=== PATIENT | female | born 1940 | race Caucasian/White ===

== ENCOUNTER 2020-10-04 10:56 | Outpatient (REF) | payer MEDICARE, SELFPAY ==
--- NOTE | 2020-10-04 | MM_ITS ---
EXAMINATION: MM SCREENING DIGITAL BREAST TOMOSYNTHESIS, BILATERAL CLINICAL INFORMATION: Screening. Asymptomatic. The lifetime risk of breast cancer based on the Tyrer-Cuzick Model is 3.4%. COMPARISON: Mammography: September 29, 2019 and studies dating back to March 12, 2014 TECHNIQUE: Digital breast tomosynthesis is performed in both the craniocaudal and mediolateral oblique views along with computer-aided detection (CAD). Synthesized 2D images are generated from the tomosynthesis. FINDINGS: There are scattered areas of fibroglandular density (ACR BI-RADS breast composition Category b). There are no significant masses, abnormal calcifications, or other abnormalities. MM/MM tomosynthesis screening BI IMPRESSION: There are no significant changes from prior study. ASSESSMENT: BI-RADS 1: Negative RECOMMENDATION: Routine annual mammography screening. This patient's information was entered into a reminder system with a target due date for their next mammogram.
== END 2020-10-04 10:57 | disposition home or self-care (01) ==
LOC: HO.MAMMO 10:56
PROVIDERS: PCP Internal Medicine; Visit Provider Internal Medicine
DX: Z12.31 Encounter for screening mammogram for malignant neoplasm of breast (principal)
CPT/HCPCS: 77063; 77067

== ENCOUNTER 2021-02-26 06:14 | Day surgery (SDC) | payer MEDICARE, SELFPAY ==
[2021-02-21 12:01] VITALS: BMI 28.9
--- NOTE | 2021-02-21 12:09 | MHC.SHP ---
Pre-Procedural Eval Section A The patient is an INPATIENT: No The History & Physical has been completed within 30 days and I have reviewed it.: Yes Section B Chief Complaint: cataract Allergies: Allergies Allergy/AdvReac Type Severity Reaction Status Date / Time amoxicillin [AMOXICILLIN] Allergy Mild UNKNOWN-HAPPENED Verified 02/16/21 16:59 IN OR 2009 milk [MILK] Allergy Unknown DIARRHEA Verified 02/16/21 16:59 Plan Diagnosis/Plan: Unchanged I have reviewed the history and physical and performed a pertinent physical examination on my patient. No changes have occurred unless specified.
[2021-02-21 14:34] VITALS: BMI 29.5
--- NOTE | 2021-02-23 09:15 | P.CONAN_ITS ---
Documented by User: Felicity Kitty 02/23/21 09:16 HPI - Anesthesia Eval Consult details Narrative: 81yo F for Right Cataract Extraction IOL Insertion No prev cataract on record PCP cleared [facility] Active Problems Active Problems: All Active Problems (Updated 02/21/21 @ 14:33 by Aracelis Keller) Pure hypercholesterolemia (Acute) Benign essential hypertension (Acute) Cataracts, bilateral (Acute) Overweight (BMI 25.0-29.9) (Acute) Anxiety (Acute) Hypercholesterolemia (Acute) Hypertension (Acute) COPD (chronic obstructive pulmonary disease) (Acute) Past Medical History Medical History Acute meniscal tear of right knee Anemia Anxiety Aortic aneurysm Arthritis Benign essential hypertension Cataracts, bilateral COPD (chronic obstructive pulmonary disease) COVID-19 vaccine series completed Hypercholesterolemia Hypertension Low back pain Obstructive sleep apnea Overweight (BMI 25.0-29.9) Pure hypercholesterolemia Urge incontinence Valvular heart disease Family History Family History Father No problems noted. Mother Hypertension CVD (cardiovascular disease) Family/Other Diabetes CAD (coronary artery disease) Surgical History Surgical History History of ankle surgery History of arthroscopy of right knee History of bladder surgery History of cholecystectomy History of urologic surgery Hx of colonoscopy Status post resection of aortic aneurysm Social History Social History Alcohol intake: former Year quit: 1990 Smoking Status: Former smoker Smoking Quit Date: 1990 Use of substances other than those prescribed or required for medical reasons: No Advance Directives: No Advance Directives Information Provided: No Advance Directives on File: No Meds Allergies Allergy/AdvReac Type Severity Reaction Status Date / Time amoxicillin [AMOXICILLIN] Allergy Mild UNKNOWN-HAPPENED Verified 02/21/21 14:28 IN OR 2009 milk [MILK] Allergy Unknown DIARRHEA Verified 02/21/21 14:28 Home Medications Medication Instructions Recorded Confirmed Last Taken Type ascorbic acid (vitamin C) 500 mg mg PO 09/25/20 02/16/21 Unknown History capsule aspirin 81 mg tablet,delayed 81 mg PO DAILY 09/25/20 02/16/21 02/19/21 History release atorvastatin 20 mg tablet 20 mg PO DAILY 09/25/20 02/21/21 Unknown History biotin 5,000 mcg disintegrating See Rx Instructions PO DAILY 09/25/20 02/16/21 Unknown History tablet cholecalciferol (vitamin D3) 50 50 mcg PO DAILY 09/25/20 02/16/21 Unknown History mcg (2,000 unit) capsule cyanocobalamin (vitamin B-12) 50 100 mcg PO DAILY 09/25/20 02/16/21 Unknown History mcg lozenges docusate sodium 100 mg capsule 100 mg PO DAILY 09/25/20 02/16/21 Unknown History estradiol 1 g VAGINAL 2XW 09/25/20 02/16/21 Unknown History glucosamine 750 ea-zzxqvgacrcc-htv 1 tab PO DAILY tab 09/25/20 02/16/21 Unknown History no1 644 mg-C 30 mg-suzie 1 mg tablet omega-3 fatty acids 1,000 mg 1,000 mg PO DAILY 09/25/20 02/16/21 Unknown History capsule ondansetron 8 mg disintegrating 8 mg PO Q8H 09/25/20 02/16/21 Unknown History tablet polyethylene glycol 3350 17 17 g PO DAILY 09/25/20 02/16/21 Unknown History gram/dose oral powder trospium 20 mg tablet 20 mg PO BID tab 09/25/20 02/21/21 Unknown History Exam Exam Date and Time: February 23, 2021 0915 Height,Weight and Vital Signs: Height 5 ft 4 in Weight 78.018 kg Assessment and Plan Assessment Anesthesia Assessment: Chart Reviewed Documented by User: Flakita Minor 02/26/21 08:01 [facility] Past Medical History Medical History Acute meniscal tear of right knee Anemia Anxiety Aortic aneurysm Arthritis Benign essential hypertension Cataracts, bilateral COPD (chronic obstructive pulmonary disease) COVID-19 vaccine series completed Hypercholesterolemia Hypertension Low back pain Obstructive sleep apnea Overweight (BMI 25.0-29.9) Pure hypercholesterolemia Urge incontinence Valvular heart disease Family History Family History Father No problems noted. Mother Hypertension CVD (cardiovascular disease) Family/Other Diabetes CAD (coronary artery disease) Family history of problems with anesthesia: No Surgical History Surgical History History of ankle surgery History of arthroscopy of right knee History of bladder surgery History of cholecystectomy History of urologic surgery Hx of colonoscopy Status post resection of aortic aneurysm History of Problems with Anesthesia: No Social History Social History Alcohol intake: former Year quit: 1990 Smoking Status: Former smoker Smoking Quit Date: 1990 Use of substances other than those prescribed or required for medical reasons: No Advance Directives: No Advance Directives Information Provided: No Advance Directives on File: No Meds Allergies Allergy/AdvReac Type Severity Reaction Status Date / Time amoxicillin [AMOXICILLIN] Allergy Mild UNKNOWN-HAPPENED Verified 02/21/21 14:28 IN OR 2009 milk [MILK] Allergy Unknown DIARRHEA Verified 02/21/21 14:28 Home Medications Medication Instructions Recorded Confirmed Last Taken Type ascorbic acid (vitamin C) 500 mg mg PO 09/25/20 02/16/21 Unknown History capsule aspirin 81 mg tablet,delayed 81 mg PO DAILY 09/25/20 02/16/21 02/19/21 History release atorvastatin 20 mg tablet 20 mg PO DAILY 09/25/20 02/21/21 Unknown History biotin 5,000 mcg disintegrating See Rx Instructions PO DAILY 09/25/20 02/16/21 Unknown History tablet cholecalciferol (vitamin D3) 50 50 mcg PO DAILY 09/25/20 02/16/21 Unknown History mcg (2,000 unit) capsule cyanocobalamin (vitamin B-12) 50 100 mcg PO DAILY 09/25/20 02/16/21 Unknown History mcg lozenges docusate sodium 100 mg capsule 100 mg PO DAILY 09/25/20 02/16/21 Unknown History estradiol 1 g VAGINAL 2XW 09/25/20 02/16/21 Unknown History glucosamine 750 mq-lnfyqobahxv-rtf 1 tab PO DAILY tab 09/25/20 02/16/21 Unknown History no1 644 mg-C 30 mg-suzie 1 mg tablet omega-3 fatty acids 1,000 mg 1,000 mg PO DAILY 09/25/20 02/16/21 Unknown History capsule ondansetron 8 mg disintegrating 8 mg PO Q8H 09/25/20 02/16/21 Unknown History tablet polyethylene glycol 3350 17 17 g PO DAILY 09/25/20 02/16/21 Unknown History gram/dose oral powder trospium 20 mg tablet 20 mg PO BID tab 09/25/20 02/21/21 Unknown History Exam Height,Weight and Vital Signs: Vital Signs Temp Pulse Resp BP Pulse Ox 02/26/21 07:18 97.9 F 93 16 132/67 99 Airway Mallampati Class: II TM Dist: >3cm Neck ROM: Full Heart: RRR Lungs: CTAB Assessment and Plan Assessment Anesthesia Assessment: Anesthesia Plan Discussed and Chart Reviewed Final Anesthetic Review NPO: Yes ASA Class: III Final Preanesthetic Review: No Changes in Pt Med Stat, Meds/Allgs Chart Reviewed, Consent Obtained/Reviewed and Anes Risks/Benef Reviewed Patient Risk: Intermediate Procedure Risk: Low Assessment/Block/Sedation in SS: Assess/Block/Sedation-SS Anesthetic Plan Anesthetic Plan: MAC: Disposition: Standard PACU
[2021-02-26] MEDS: Tetracaine HCl/PF 0.5% Oph Sol 4 ML DROPS 1 DROP EYE-RIGHT (07:07)
[2021-02-26] MEDS: Tropicamide 1 % Ophth Sol 3 ML BTL 1 DROP EYE-RIGHT ×3 (07:08→07:19)
[2021-02-26] MEDS: Phenylephrine HCL 2.5% Oph SoL 2 ML BOTTLE 1 DROP EYE-RIGHT ×3 (07:11→07:22)
[2021-02-26 07:18] VITALS: BP 132/67; PULSE 93; RESP 16; TEMP 36.6; O2SAT 99
[2021-02-26] MEDS: Lactated Ringers 500 ML 50 ML IV (07:37)
--- NOTE | 2021-02-26 08:47 | P.PCNO_ITS ---
Ophthalmology Procedure Procedure Date of Service: 02/26/21 Ophthalmology Viscoelastic: Healon Duet Dual Pack Pro Ophthalmology Lenses: TECNIS ZXR00 (20.5) Procedure Notes: PREOPERATIVE DIAGNOSIS: Decreased visual acuity right eye secondary to cataract POSTOPERATIVE DIAGNOSIS: Same PROCEDURE: Right cataract extraction with multifocal intraocular lens insertion SURGEON: Armani Paul M.D. ANESTHESIA: Topical/MAC ESTIMATED BLOOD LOSS: None COMPLICATIONS: None After obtaining informed consent, the patient was brought to the operating room suite and placed in the supine position. After adequate sedation per anesthesia, topical drops of Tetracaine were given to the right eye. The eye was then prepped and draped in the usual sterile fashion. The operating room microscope was then positioned over the operative eye and a lid speculum placed. A paracentesis was created. Viscoelastic was then instilled into the anterior chamber. A three plane incision was then created temporally, utilizing a 2.85 mm keratome. Capsulotomy forceps were then utilized to create a circular tear capsulotomy. Hydrodissection and hydrodelineation were carried out until adequate mobilization of the nucleus occurred. Phacoemulsification was then utilized to remove the dense central nuc leus followed by removal of the cortical material utilizing the automated aspiration irrigation unit. Viscoelastic was instilled into the posterior capsular bag followed by placement of a multifocal posterior chamber intraocular lens without difficulty. The residual Viscoelastic was then removed utilizing the automated IA machine. The wound was checked and found to be watertight. The patient tolerated the procedure well and the lid speculum was removed. Intracameral injection of Vigamox 0.1 mL followed by a subtenon injection of Kenalog-40 0.2 mL were administered. The patient will be seen in the a.m.
[2021-02-26 08:48] VITALS: BP 153/82; PULSE 100; RESP 16; TEMP 36.1; O2SAT 98
[2021-02-26 08:56] VITALS: BP 155/60; PULSE 63; RESP 18; O2SAT 98
== END 2021-02-26 09:58 | disposition home or self-care (01) ==
PROVIDERS: PCP Internal Medicine; Visit Provider Ophthalmology
PROC: (CPT 66984; principal; 2021-02-26 08:20)
DX: H25.11 Age-related nuclear cataract, right eye (principal); H52.4 Presbyopia; Z83.511 Family history of glaucoma; I10 Essential (primary) hypertension; J44.9 Chronic obstructive pulmonary disease, unspecified; G47.33 Obstructive sleep apnea (adult) (pediatric); Z79.82 Long term (current) use of aspirin; Z79.899 Other long term (current) drug therapy; Z88.0 Allergy status to penicillin; Z87.891 Personal history of nicotine dependence
CPT/HCPCS: 66984; J2250; J3010; J3300; V2788

== ENCOUNTER 2021-03-12 06:48 | Day surgery (SDC) | payer MEDICARE, SELFPAY ==
[2021-02-21 14:36] VITALS: BMI 29.5
--- NOTE | 2021-03-07 12:19 | P.CONAN_ITS ---
Documented by User: Felicity Tang 03/07/21 12:20 HPI - Anesthesia Eval Consult details Narrative: 81yo F for Left Cataract Extraction IOL Insertion PCP Cleared Right eye 5/3 with TIVA: Fent 25, Midaz 1 PMFSH Active Problems Active Problems: All Active Problems (Updated 02/21/21 @ 14:33 by Aracelis Keller) Pure hypercholesterolemia (Acute) Benign essential hypertension (Acute) Cataracts, bilateral (Acute) Overweight (BMI 25.0-29.9) (Acute) Anxiety (Acute) Hypercholesterolemia (Acute) Hypertension (Acute) COPD (chronic obstructive pulmonary disease) (Acute) Past Medical History Medical History Acute meniscal tear of right knee Anemia Anxiety Aortic aneurysm Arthritis Benign essential hypertension Cataracts, bilateral COPD (chronic obstructive pulmonary disease) COVID-19 vaccine series completed Hypercholesterolemia Hypertension Low back pain Obstructive sleep apnea Overweight (BMI 25.0-29.9) Pure hypercholesterolemia Urge incontinence Valvular heart disease Family History Family History Father No problems noted. Mother Hypertension CVD (cardiovascular disease) Family/Other Diabetes CAD (coronary artery disease) Family history of problems with anesthesia: No Surgical History Surgical History History of ankle surgery History of arthroscopy of right knee History of bladder surgery History of cholecystectomy History of urologic surgery Hx of colonoscopy Status post resection of aortic aneurysm History of Problems with Anesthesia: No Social History Social History Alcohol intake: former Year quit: 1990 Smoking Status: Former smoker Smoking Quit Date: 1990 Use of substances other than those prescribed or required for medical reasons: No Are you DNR?: No Advance Directives: No Advance Directives Information Provided: No Advance Directives on File: No Meds Allergies Allergy/AdvReac Type Severity Reaction Status Date / Time amoxicillin [AMOXICILLIN] Allergy Mild UNKNOWN-HAPPENED Verified 02/21/21 14:28 IN OR 2009 milk [MILK] Allergy Unknown DIARRHEA Verified 02/21/21 14:28 Home Medications Medication Instructions Recorded Confirmed Last Taken Type ascorbic acid (vitamin C) 500 mg mg PO 09/25/20 02/16/21 Unknown History capsule aspirin 81 mg tablet,delayed 81 mg PO DAILY 09/25/20 02/16/21 03/11/21 History release atorvastatin 20 mg tablet 20 mg PO DAILY 09/25/20 02/21/21 Unknown History biotin 5,000 mcg disintegrating See Rx Instructions PO DAILY 09/25/20 02/16/21 Unknown History tablet cholecalciferol (vitamin D3) 50 50 mcg PO DAILY 09/25/20 02/16/21 Unknown History mcg (2,000 unit) capsule cyanocobalamin (vitamin B-12) 50 100 mcg PO DAILY 09/25/20 02/16/21 Unknown History mcg lozenges docusate sodium 100 mg capsule 100 mg PO DAILY 09/25/20 02/16/21 Unknown History estradiol 1 g VAGINAL 2XW 09/25/20 02/16/21 Unknown History glucosamine 750 qf-trnyvbygvwo-pyg 1 tab PO DAILY tab 09/25/20 02/16/21 Unknown History no1 644 mg-C 30 mg-suzie 1 mg tablet omega-3 fatty acids 1,000 mg 1,000 mg PO DAILY 09/25/20 02/16/21 Unknown History capsule ondansetron 8 mg disintegrating 8 mg PO Q8H 09/25/20 02/16/21 Unknown History tablet polyethylene glycol 3350 17 17 g PO DAILY 09/25/20 02/16/21 Unknown History gram/dose oral powder trospium 20 mg tablet 20 mg PO BID tab 09/25/20 02/21/21 Unknown History Exam Exam Date and Time: March 07, 2021 1219 Height,Weight and Vital Signs: Height 5 ft 4 in Weight 78.018 kg Assessment and Plan Assessment Anesthesia Assessment: Chart Reviewed Documented by User: Flakita Minor 03/12/21 08:07 [facility] Past Medical History Medical History Acute meniscal tear of right knee Anemia Anxiety Aortic aneurysm Arthritis Benign essential hypertension Cataracts, bilateral COPD (chronic obstructive pulmonary disease) COVID-19 vaccine series completed Hypercholesterolemia Hypertension Low back pain Obstructive sleep apnea Overweight (BMI 25.0-29.9) Pure hypercholesterolemia Urge incontinence Valvular heart disease Family History Family History Father No problems noted. Mother Hypertension CVD (cardiovascular disease) Family/Other Diabetes CAD (coronary artery disease) Surgical History Surgical History History of ankle surgery History of arthroscopy of right knee History of bladder surgery History of cholecystectomy History of urologic surgery Hx of colonoscopy Status post resection of aortic aneurysm Social History Social History Alcohol intake: former Year quit: 1990 Smoking Status: Former smoker Smoking Quit Date: 1990 Use of substances other than those prescribed or required for medical reasons: No Are you DNR?: No Advance Directives: No Advance Directives Information Provided: No Advance Directives on File: No Meds Allergies Allergy/AdvReac Type Severity Reaction Status Date / Time amoxicillin [AMOXICILLIN] Allergy Mild UNKNOWN-HAPPENED Verified 02/21/21 14:28 IN OR 2009 milk [MILK] Allergy Unknown DIARRHEA Verified 02/21/21 14:28 Home Medications Medication Instructions Recorded Confirmed Last Taken Type ascorbic acid (vitamin C) 500 mg mg PO 09/25/20 02/16/21 Unknown History capsule aspirin 81 mg tablet,delayed 81 mg PO DAILY 09/25/20 02/16/21 03/11/21 History release atorvastatin 20 mg tablet 20 mg PO DAILY 09/25/20 02/21/21 Unknown History biotin 5,000 mcg disintegrating See Rx Instructions PO DAILY 09/25/20 02/16/21 Unknown History tablet cholecalciferol (vitamin D3) 50 50 mcg PO DAILY 09/25/20 02/16/21 Unknown History mcg (2,000 unit) capsule cyanocobalamin (vitamin B-12) 50 100 mcg PO DAILY 09/25/20 02/16/21 Unknown History mcg lozenges docusate sodium 100 mg capsule 100 mg PO DAILY 09/25/20 02/16/21 Unknown History estradiol 1 g VAGINAL 2XW 09/25/20 02/16/21 Unknown History glucosamine 750 is-veuofzionhu-qhi 1 tab PO DAILY tab 09/25/20 02/16/21 Unknown History no1 644 mg-C 30 mg-suzie 1 mg tablet omega-3 fatty acids 1,000 mg 1,000 mg PO DAILY 09/25/20 02/16/21 Unknown History capsule ondansetron 8 mg disintegrating 8 mg PO Q8H 09/25/20 02/16/21 Unknown History tablet polyethylene glycol 3350 17 17 g PO DAILY 09/25/20 02/16/21 Unknown History gram/dose oral powder trospium 20 mg tablet 20 mg PO BID tab 09/25/20 02/21/21 Unknown History Exam Height,Weight and Vital Signs: Vital Signs Temp Pulse Resp BP Pulse Ox 03/12/21 07:47 97.2 F 95 16 154/80 H 97 Airway Mallampati Class: II TM Dist: >3cm Neck ROM: Full Heart: RRR Lungs: CTAB Assessment and Plan Assessment Anesthesia Assessment: Anesthesia Plan Discussed and Chart Reviewed Final Anesthetic Review NPO: Yes ASA Class: III Final Preanesthetic Review: No Changes in Pt Med Stat, Meds/Allgs Chart Reviewed, Consent Obtained/Reviewed and Anes Risks/Benef Reviewed Patient Risk: Intermediate Procedure Risk: Low Assessment/Block/Sedation in SS: Assess/Block/Sedation-SS Anesthetic Plan Anesthetic Plan: MAC: Disposition: Standard PACU
--- NOTE | 2021-03-07 14:33 | MHC.SHP ---
Pre-Procedural Eval Section A The patient is an INPATIENT: No The History & Physical has been completed within 30 days and I have reviewed it.: Yes Section B Chief Complaint: cataract Allergies: Allergies Allergy/AdvReac Type Severity Reaction Status Date / Time amoxicillin [AMOXICILLIN] Allergy Mild UNKNOWN-HAPPENED Verified 02/21/21 14:28 IN OR 2009 milk [MILK] Allergy Unknown DIARRHEA Verified 02/21/21 14:28 Plan Diagnosis/Plan: Unchanged I have reviewed the history and physical and performed a pertinent physical examination on my patient. No changes have occurred unless specified.
[2021-03-12] MEDS: Tetracaine HCl/PF 0.5% Oph Sol 4 ML DROPS 1 DROP EYE-LEFT (07:41)
[2021-03-12] MEDS: Tropicamide 1 % Ophth Sol 3 ML BTL 1 DROP EYE-LEFT ×3 (07:43→07:55)
[2021-03-12] MEDS: Lactated Ringers 500 ML 50 ML IV (07:46)
[2021-03-12 07:47] VITALS: BP 154/80; PULSE 95; RESP 16; TEMP 36.2; O2SAT 97
[2021-03-12] MEDS: Phenylephrine HCL 2.5% Oph SoL 2 ML BOTTLE 1 DROP EYE-LEFT ×3 (07:47→07:59)
--- NOTE | 2021-03-12 08:24 | P.PCNO_ITS ---
Ophthalmology Procedure Procedure Date of Service: 03/12/21 Ophthalmology Viscoelastic: Healon Duet Dual Pack Pro Ophthalmology Lenses: TECNIS ZXR00 (21) Procedure Notes: PREOPERATIVE DIAGNOSIS: Decreased visual acuity left eye s econdary to cataract POSTOPERATIVE DIAGNOSIS: Same PROCEDURE: Left cataract extraction with multifocal intraocular lens insertion SURGEON: Armani Paul M.D. ANESTHESIA: Topical/MAC ESTIMATED BLOOD LOSS: None COMPLICATIONS: None After obtaining informed consent, the patient was brought to the operation room suite and placed in the supine position. After adequate sedation per anesthesia, topical drops of Tetracaine were given to the left eye. The eye was then prepped and draped in the usual sterile fashion. The operating room microscope was then positioned over the operative eye and a lid speculum placed. A paracentesis was created. Viscoelastic was then instilled into the anterior chamber. A three plane incision was then created temporally, utilizing a 2.85 mm keratome. Capsulotomy forceps were then utilized to create a circular tear capsulotomy. Hydrodissection and hydrodelineation were carried out until adequate mobilization of the nucleus occurred. Phacoemulsification was then utilized to remove the dense central nucleus followed by removal of the cortical material utilizing the automated aspiration irrigation unit. Viscoelastic was instilled into the posterior capsular bag followed by placement of a multifocal posterior chamber intraocular lens without difficulty. The residual Viscoelastic was then removed utilizing the automated IA machine. The wound was check and found to be watertight. The patient tolerated the procedure well and the lid speculum was removed. Intracameral injection of Vigamox 0.1 mL followed by a subtenon injection of Kenalog-40 0.2 mL were administered. The patient will be seen in the a.m.
[2021-03-12 08:45] VITALS: BP 151/73; PULSE 89; RESP 18; TEMP 36.7; O2SAT 96
== END 2021-03-12 09:29 | disposition home or self-care (01) ==
PROVIDERS: PCP Internal Medicine; Visit Provider Ophthalmology
PROC: (CPT 66984; principal; 2021-03-12 08:40)
DX: H25.12 Age-related nuclear cataract, left eye (principal); H52.4 Presbyopia; Z83.511 Family history of glaucoma; I10 Essential (primary) hypertension; J44.9 Chronic obstructive pulmonary disease, unspecified; G47.33 Obstructive sleep apnea (adult) (pediatric); Z79.899 Other long term (current) drug therapy; Z87.891 Personal history of nicotine dependence
CPT/HCPCS: 66984; J2250; J3010; J3300; V2788

== ENCOUNTER 2021-05-14 11:51 | Outpatient (REF) | payer MEDICARE, SELFPAY ==
[2021-05-14 13:12] LABS: MANUAL DIFF FLAG NO
[2021-05-14 13:18] LABS: Basophils Absolute Auto 0.1 X10*3/uL (0.0-0.2); Basophils Percent Auto 0.6 % (0-2); Eosinophils Absolute Auto 0.3 X10*3/uL (0.0-0.4); Eosinophils Percent Auto 3.4 % (0-4); Hemoglobin 12.8 g/dl (12.0-16.0); Imm Gran Abs Auto 0.03 X10*3/uL (0.00-0.03); Imm Gran Pct Auto 0.4 % (0.0-0.4); Lymphocytes Percent Auto 25.1 % (20-40); Mean Corpuscular HGB Conc 33.7 g/dl (31.0-35.0); Mean Corpuscular Hemoglobin 31.9 pg (27.0-33.0); Mean Corpuscular Volume 94.8 fL (80-98); Mean Platelet Volume 10.6 fL (9.4-12.3); Monocytes Absolute Auto 0.7 X10*3/uL (0.1-1.2); Monocytes Percent Auto 8.4 % (2-11); Neutrophils Absolute Auto 4.9 X10*3/uL (2.0-8.3); Neutrophils Percent Auto 62.1 % (45-73); Platelet Count 182 X10*3/uL (160-400); Red Blood Count 4.01 X10*6/uL (4.20-5.50); Red Cell Distribution Width 12.5 % (11.0-16.0); White Blood Count 7.9 X10*3/uL (4.8-10.8)
[2021-05-14 14:11] LABS: Alanine Aminotransferase 12 U/L (0-31); Albumin Level 4.5 g/dL (3.5-5.0); Alkaline Phosphatase 57 U/L (39-117); Anion Gap 14 (12-20); Aspartate Amino Transferase 17 U/L (5-31); Bilirubin Total 0.6 mg/dL (0.0-1.0); Blood Urea Nitrogen 20 mg/dL (9-16); Calcium 9.6 mg/dL (8.4-10.2); Carbon Dioxide 26 mmol/L (22-29); Chloride 105 mmol/L (96-108); Cholesterol 161 mg/dL; Estimated Glomerular Filt Rate > 60; Glucose Random 92 mg/dL (60-115); HDL Cholesterol 44 mg/dL; LDL Cholesterol Calculated 97 mg/dl; Potassium 4.5 mmol/L (3.3-5.1); Sodium 140 mmol/L (135-145); Total Protein 7.2 g/dL (6.5-8.0); Triglycerides 101 mg/dL
[2021-05-14 14:12] LABS: Free T4 (Free Thyroxine) 1.05 ng/dL (0.71-1.85); Vitamin D 25-OH Total 69.6 ng/mL (>30)
[2021-05-14 14:16] LABS: Folate > 20.0 ng/mL (> or = 4.0); Vitamin B12 965 pg/mL (200-900)
[2021-05-14 14:30] LABS: Thyroid Stimulating Hormone 0.46 uIU/mL (0.32-4.0)
[2021-05-14 17:53] LABS: Glucose Urine UA NEG (NEG); Leukocyte Esterase Urine NEG (NEG); Nitrite Urine NEG (NEG); PH 5.5 (5.0-8.0); Urine Blood NEG (NEG); Urine Ketones NEG (NEG); Urine Protein NEG (NEG-TRACE)
[2021-05-14 17:57] LABS: Appearance Urine CLEAR; Color Urine STRAW
== END 2021-05-14 11:52 | disposition home or self-care (01) ==
LOC: HO.LAB 11:51
PROVIDERS: PCP Internal Medicine; Visit Provider Internal Medicine
DX: E78.00 Pure hypercholesterolemia, unspecified (principal); I10 Essential (primary) hypertension
CPT/HCPCS: 36415; 80053; 80061; 81003; 82306; 82607; 82746; 84439; 84443; 85025

== ENCOUNTER 2021-06-23 17:19 | Emergency (ER) | payer MEDICARE, SELFPAY ==
[2021-06-23 17:26] VITALS: BP 172/94; PULSE 117; RESP 17; TEMP 37.1; O2SAT 96; BMI 29.2
--- NOTE | 2021-06-23 17:47 | ED.GENADULT ---
HPI - General Adult General Chief complaint: General Medical Stated complaint: ?Shingles Source: patient Mode of arrival: ambulatory Limitations: no limitations History of Present Illness HPI narrative: 81-year-old female presents with 1 day of vesicular rash to the right side of her back, right axilla and right breast. States she has concerns for shingles. Onset (ago): day(s) (1) Location: chest, back and upper extremity Radiation: non-radiation Severity: severe Severity scale (1-10): 10 Quality: burning Pain Consistency: constant Relieving factors: none Exacerbating factors: movement Associated symptoms: denies other symptoms Treatments prior to arrival: none Related Data Home Medications Medication Instructions Recorded Confirmed ascorbic acid (vitamin C) 500 mg mg PO 09/25/20 06/05/21 capsule aspirin 81 mg tablet,delayed 81 mg PO DAILY 09/25/20 06/05/21 release (Adult Aspirin Regimen) biotin 5,000 mcg disintegrating See Rx Instructions PO DAILY 09/25/20 06/05/21 tablet cholecalciferol (vitamin D3) 50 50 mcg PO DAILY 09/25/20 06/05/21 mcg (2,000 unit) capsule cyanocobalamin (vitamin B-12) 50 100 mcg PO DAILY 09/25/20 06/05/21 mcg lozenges docusate sodium 100 mg capsule 100 mg PO DAILY 09/25/20 06/05/21 (Colace) estradiol 1 g VAGINAL 2XW 09/25/20 06/05/21 glucosamine 750 nx-jijtdpwdosh-dqi 1 tab PO DAILY tab 09/25/20 06/05/21 no1 644 mg-C 30 mg-suzie 1 mg tablet omega-3 fatty acids 1,000 mg 1,000 mg PO DAILY 09/25/20 06/05/21 capsule (Fish Oil Concentrate) ondansetron 8 mg disintegrating 8 mg PO Q8H 09/25/20 06/05/21 tablet polyethylene glycol 3350 17 17 g PO DAILY 09/25/20 06/05/21 gram/dose oral powder (Miralax) trospium 20 mg tablet 20 mg PO BID tab 09/25/20 06/05/21 Previous Rx's Medication Instructions Recorded meloxicam 15 mg tablet 15 mg PO DAILY #90 tab 09/18/20 lisinopril 5 mg tablet 5 mg PO DAILY #90 tab 11/24/20 atorvastatin 20 mg tablet 20 mg PO DAILY #90 tab 06/18/21 gabapentin 100 mg capsule 100 mg PO TID PRN 7 Days #21 cap 06/23/21 oxycodone 5 mg tablet 5 mg PO BEDTIME PRN #3 tab 06/23/21 prednisone 20 mg tablet 40 mg PO DAILY 6 Days #12 tab 06/23/21 valacyclovir 1 gram tablet 1,000 mg PO Q8H 7 Days #21 tab 06/23/21 Allergies Allergy/AdvReac Type Severity Reaction Status Date / Time amoxicillin [AMOXICILLIN] Allergy Mild UNKNOWN-HAPPENED Verified 06/05/21 12:00 IN OR 2009 milk [MILK] Allergy Unknown DIARRHEA Verified 06/05/21 12:00 Review of Systems Review of Systems: Constitutional: No Fever, No Chills ENT/Mouth: No Ear Pain, No Hoarseness, No sore throat Eyes: No Eye Pain, No Swelling, No Redness, No Foreign Body Cardiovascular: No Chest Pain, No SOB Respiratory: No Cough, No Dyspnea Gastrointestinal: No Nausea, No Vomiting, No Diarrhea, No abdominal Pain Genitourinary: No Dysuria, No Hematuria Musculoskeletal: No joint pain, No Myalgias, No Joint Swelling Skin: No Skin lacerations, positive rash Neuro: No Weakness, No Numbness, No Paresthesias, No Loss of Consciousness, No Dizziness, No Headache Psych: No Anxiety/Panic, No Depression Heme/Lymph: no easy bruising, no Lymphadenopathy Endocrine: No Polyuria, No Polydipsia Yes all other systems are reviewed and are negative PMFSH Past Medical History Attestation statement: The following information was validated with the patient. Source: old records reviewed Medical History Acute meniscal tear of right knee Anemia Anxiety Aortic aneurysm Arthritis Benign essential hypertension Cataracts, bilateral COPD (chronic obstructive pulmonary disease) COVID-19 vaccine series completed Low back pain Obstructive sleep apnea Overweight (BMI 25.0-29.9) Pure hypercholesterolemia Urge incontinence Valvular heart disease Surgical History History of ankle surgery History of arthroscopy of right knee History of bladder surgery History of cholecystectomy History of urologic surgery Hx of colonoscopy Status post resection of aortic aneurysm Family History Family History Father No problems noted. Mother Hypertension CVD (cardiovascular disease) Family/Other Diabetes CAD (coronary artery disease) Social History Social History Alcohol intake: never Patient Tobacco Use Status: Former Tobacco user Years Smoked: stopped 52 years old Use of substances other than those prescribed or required for medical reasons: No Advance Directives: No Advance Directives Information Provided: Yes Physical Exam Vital Signs: Vital Signs: Last Vital Signs Temp 98.8 F 06/23/21 17: Pulse 117 H 06/23/21 17:26 Resp 17 06/23/21 17: BP 172/94 H 06/23/21 17: Pulse Ox 96 06/23/21 17: Body Mass Index 29.2 Appearance: Alert. Oriented X3. No acute distress. Eyes: Pupils equal, round and reactive to light. ENT: Pharynx normal. Neck: Normal inspection. Neck supple. CVS: Normal heart rate and rhythm. Pulses normal. Respiratory: No respiratory distress. Breath sounds normal. Abdomen: Soft and nontender. Skin: Positive vescicular rash to the upper right side of her back, right axilla, and right side of her breast. On the same dermatome. Skin warm and dry. Normal skin color. Normal skin turgor. Extremities: No lower extremity edema. Neuro: No motor deficit. No sensory deficit. Course Course Course Narrative: 81-year-old female presents with vesicular rash that is painful, burning, and consistent with shingles. Will treat with valtrex, gabapentin, prednisone, and prescribed oxycodone for home use. Patient does verbalize understanding of and agrees to plan of care discharge home. Medical Decision Making Differential Diagnosis Differential Diagnosis: Shingles, contact dermatitis Medical Records Medical records reviewed: Yes I reviewed the patient's medical records. Discharge Plan Discharge Clinical Impression: Shingles Patient Disposition: Home, Self-Care Instructions: Shingles (ED) Additional Instructions: You were evaluated for rash to the right upper side of your body, consistent with shingles. Please take valacyclovir 1000 mg 3 times a day for the next 7 days. Use gabapentin 100 mg 3 times a day as needed for neurologic pain. Take prednisone 40 mg for the next 7 days. Please take Tylenol as needed for pain management. I did prescribe oxycodone, I gave the 3 tablets to help you sleep at night. Oxycodone is a narcotic and has high risk for addiction and abuse. Do not drive or operate machinery while taking this medication Thank you for choosing this emergency department for evaluation. Please follow-up with primary care physician as needed. Return to the emergency department for any new, concerning, or worsening symptoms. Prescriptions: New valacyclovir 1 gram tablet 1,000 mg PO Q8H 7 Days Qty: 21 RF: 0 prednisone 20 mg tablet 40 mg PO DAILY 6 Days Qty: 12 RF: 0 gabapentin 100 mg capsule 100 mg PO TID PRN (Reason: Neuralgia) 7 Days Qty: 21 RF: 0 oxycodone 5 mg tablet 5 mg PO BEDTIME PRN (Reason: pain) Qty: 3 RF: 0 No Action meloxicam 15 mg tablet 15 mg PO DAILY Qty: 90 RF: 1 lisinopril 5 mg tablet 5 mg PO DAILY Qty: 90 RF: 2 atorvastatin 20 mg tablet 20 mg PO DAILY Qty: 90 RF: 3 trospium 20 mg tablet 20 mg PO BID RF: 0 aspirin [Adult Aspirin Regimen] 81 mg tablet,delayed release (DR/EC) 81 mg PO DAILY RF: 0 cholecalciferol (vitamin D3) 50 mcg (2,000 unit) capsule 50 mcg PO DAILY RF: 0 docusate sodium [Colace] 100 mg capsule 100 mg PO DAILY RF: 0 jljnejzb-pxob-zqu4-C-suzie-bosw 750 mg-644 mg- 30 mg-1 mg tablet 1 tab PO DAILY RF: 0 cyanocobalamin (vitamin B-12) 50 mcg lozenge 100 mcg PO DAILY RF: 0 omega-3 fatty acids [Fish Oil Concentrate] 1,000 mg capsule 1,000 mg PO DAILY RF: 0 polyethylene glycol 3350 [Miralax] 17 gram/dose powder 17 g PO DAILY RF: 0 ondansetron 8 mg tablet,disintegrating 8 mg PO Q8H RF: 0 estradiol 0.01 % (0.1 mg/gram) cream 1 g vaginal 2XW RF: 0 biotin 5,000 mcg tablet,disintegrating See Rx Instructions PO DAILY RF: 0 ascorbic acid (vitamin C) 500 mg capsule PO RF: 0 Interventions: ED Discharge Assessment Last Done: 06/23/21 18:37 Discharge Date/Time: 06/23/21 18:50
[2021-06-23] MEDS: predniSONE 20 MG TABLET 40 MG PO (18:45)
[2021-06-23] MEDS: Gabapentin 100 MG CAPSULE PO (18:45)
--- NOTE | 2021-06-23 18:49 | PC.NURSE ---
patient medicated per order
== END 2021-06-23 18:50 | disposition home or self-care (01) ==
PROVIDERS: Emergency Provider Emergency Medicine Emergency Medical Services; PCP Internal Medicine
DX: B02.9 Zoster without complications (principal); I10 Essential (primary) hypertension; E78.00 Pure hypercholesterolemia, unspecified; Z79.02 Long term (current) use of antithrombotics/antiplatelets; Z79.82 Long term (current) use of aspirin; Z79.899 Other long term (current) drug therapy
CPT/HCPCS: 99283

== ENCOUNTER 2021-07-01 13:49 | Emergency (ER) | payer MEDICARE, SELFPAY ==
--- NOTE | 2021-07-01 | ECG_ITS ---
Test Reason : PALPITATIONS Blood Pressure : / mmHG Vent. Rate : 120 BPM Atrial Rate : 120 BPM P-R Int : 196 ms QRS Dur : 078 ms QT Int : 278 ms P-R-T Axes : 000 034 091 degrees QTc Int : 392 ms Sinus tachycardia Nonspecific T wave abnormality Abnormal ECG When compared with ECG of 18-MAY-2020 13:51, Nonspecific T wave abnormality is now Present Referred By: Generic ED Physician Electronically Signed By:JOSSUE CASTILLO
[2021-07-01 14:06] VITALS: BP 175/84; PULSE 130; RESP 20; TEMP 36.6; O2SAT 99; BMI 29.2
[2021-07-01 14:43] LABS: MANUAL DIFF FLAG NO
[2021-07-01 14:47] LABS: Basophils Percent Auto 0.4 % (0-2); Eosinophils Absolute Auto 0.3 X10*3/uL (0.0-0.4); Eosinophils Percent Auto 2.3 % (0-4); Hematocrit 39.7 % (37-47); Hemoglobin 13.8 g/dl (12.0-16.0); Imm Gran Abs Auto 0.09 X10*3/uL (0.00-0.03); Imm Gran Pct Auto 0.8 % (0.0-0.4); Lymphocytes Absolute Auto 4.8 X10*3/uL (1.2-4.9); Lymphocytes Percent Auto 44.3 % (20-40); Mean Corpuscular HGB Conc 34.8 g/dl (31.0-35.0); Mean Corpuscular Hemoglobin 32.8 pg (27.0-33.0); Mean Corpuscular Volume 94.3 fL (80-98); Mean Platelet Volume 9.2 fL (9.4-12.3); Monocytes Absolute Auto 0.9 X10*3/uL (0.1-1.2); Monocytes Percent Auto 8.2 % (2-11); Neutrophils Absolute Auto 4.8 X10*3/uL (2.0-8.3); Platelet Count 216 X10*3/uL (160-400); Red Blood Count 4.21 X10*6/uL (4.20-5.50); White Blood Count 10.8 X10*3/uL (4.8-10.8)
[2021-07-01 14:48] VITALS: PULSE 85
[2021-07-01 15:05] LABS: Troponin-I High Sensitivity < 3.5 ng/L (<3.5-17.0)
--- NOTE | 2021-07-01 15:36 | ED.GENADULT ---
HPI - General Adult General Chief complaint: General Medical Stated complaint: SHINGLES Time Seen by Provider: 07/01/21 14:36 Source: patient and family (, Trevor) Mode of arrival: ambulatory Limitations: no limitations History of Present Illness HPI narrative: 81-year-old female who presents emergency department for evaluation of right-sided chest pain secondary to shingles, diarrhea and nausea. The patient was diagnosed with shingles approximately 1 week prior. She was started on gabapentin, prednisone, valacyclovir and oxycodone. She states that she has completed these medications and she is still having severe pain in her right chest. The pain is located in her right anterior and posterior chest and underneath her right axilla, the pain is a constant, burning sensation which is 8/10. Patient states she had associated nausea and had 2-3 episodes of loose diarrheal stool. Patient was concerned that her pain was not getting better and that she now had diarrhea therefore she came to the emergency department for evaluation. She denied fever, chills, shortness of breath or dyspnea on exertion. Related Data Home Medications Medication Instructions Recorded Confirmed ascorbic acid (vitamin C) 500 mg mg PO 09/25/20 06/05/21 capsule aspirin 81 mg tablet,delayed 81 mg PO DAILY 09/25/20 06/05/21 release (Adult Aspirin Regimen) biotin 5,000 mcg disintegrating See Rx Instructions PO DAILY 09/25/20 06/05/21 tablet cholecalciferol (vitamin D3) 50 50 mcg PO DAILY 09/25/20 06/05/21 mcg (2,000 unit) capsule cyanocobalamin (vitamin B-12) 50 100 mcg PO DAILY 09/25/20 06/05/21 mcg lozenges docusate sodium 100 mg capsule 100 mg PO DAILY 09/25/20 06/05/21 (Colace) estradiol 1 g VAGINAL 2XW 09/25/20 06/05/21 glucosamine 750 lv-qaypptiyjsw-iwd 1 tab PO DAILY tab 09/25/20 06/05/21 no1 644 mg-C 30 mg-suzie 1 mg tablet omega-3 fatty acids 1,000 mg 1,000 mg PO DAILY 09/25/20 06/05/21 capsule (Fish Oil Concentrate) ondansetron 8 mg disintegrating 8 mg PO Q8H 09/25/20 06/05/21 tablet polyethylene glycol 3350 17 17 g PO DAILY 09/25/20 06/05/21 gram/dose oral powder (Miralax) trospium 20 mg tablet 20 mg PO BID tab 09/25/20 06/05/21 Previous Rx's Medication Instructions Recorded lisinopril 5 mg tablet 5 mg PO DAILY #90 tab 11/24/20 atorvastatin 20 mg tablet 20 mg PO DAILY #90 tab 06/18/21 gabapentin 100 mg capsule 100 mg PO TID PRN 7 Days #21 cap 06/23/21 oxycodone 5 mg tablet 5 mg PO BEDTIME PRN #3 tab 06/23/21 prednisone 20 mg tablet 40 mg PO DAILY 6 Days #12 tab 06/23/21 valacyclovir 1 gram tablet 1,000 mg PO Q8H 7 Days #21 tab 06/23/21 meloxicam 15 mg tablet 15 mg PO DAILY #90 tab 06/26/21 gabapentin 100 mg capsule 100 mg PO TID 30 Days #90 cap 07/01/21 oxycodone 5 mg capsule 5 mg PO Q4H PRN #14 cap 07/01/21 Allergies Allergy/AdvReac Type Severity Reaction Status Date / Time amoxicillin [AMOXICILLIN] Allergy Mild UNKNOWN-HAPPENED Verified 06/05/21 12:00 IN OR 2009 milk [MILK] Allergy Unknown DIARRHEA Verified 06/05/21 12:00 Review of Systems Review of Systems: Yes all other systems are reviewed and are negative [facility] Past Medical History Medical History Acute meniscal tear of right knee Anemia Anxiety Aortic aneurysm Arthritis Benign essential hypertension Cataracts, bilateral COPD (chronic obstructive pulmonary disease) COVID-19 vaccine series completed Low back pain Obstructive sleep apnea Overweight (BMI 25.0-29.9) Pure hypercholesterolemia Urge incontinence Valvular heart disease Surgical History History of ankle surgery History of arthroscopy of right knee History of bladder surgery History of cholecystectomy History of urologic surgery Hx of colonoscopy Status post resection of aortic aneurysm Family History Family History Father No problems noted. Mother Hypertension CVD (cardiovascular disease) Family/Other Diabetes CAD (coronary artery disease) Social History Social History Alcohol intake: never Patient Tobacco Use Status: Former Tobacco user Years Smoked: stopped 52 years old Use of substances other than those prescribed or required for medical reasons: No Advance Directives: Yes Advance Directives Information Provided: Yes Advance Directives on File: No Physical Exam Vital Signs: Vital Signs: Last Vital Signs Temp 97.9 F 07/01/21 14:06 Pulse 85 07/01/21 14:48 Resp 20 07/01/21 14:06 BP 175/84 H 07/01/21 14:06 Pulse Ox 99 07/01/21 14:06 Body Mass Index 29.2 Const: General: cooperative and no acute distress Orientation/consciousness: oriented to person and oriented to place Limitations: no limitations HENMT: Head: Yes normal to inspection, Yes normocephalic and Yes atraumatic Ears: external ears normal General nose exam: Normal external nose present Face and sinus: Yes normal facial exam Mouth: Normal oral and palatal mucosa present Throat: Yes posterior oropharynx normal Eyes: General: appearance normal, both eyes and all related structures Pupils: Equal, round and reactive pupils present Neck: Neck: Yes normal visual inspection, Yes no lymphadenopathy, Yes trachea midline and Yes supple Chest: Chest palpation & inspection: normal inspection of the chest and normal palpation of entire chest wall Resp: Effort & Inspection: normal respiratory effort and able to speak in complete sentences Auscultation: clear to auscultation bilaterally Cardio: Rate: regular rate Rhythm: regular rhythm Heart sounds: S1 normal heart sound present, S2 normal heart sound present and no murmurs GI: Inspection: Yes normal to inspection Palpation (GI): Soft to palpation, nontender and no guarding Auscultation: normal bowel sounds : General: Yes no CVA tenderness Back/Spine/Pelvis: Back: no CVA tenderness Skin: Other: The patient had scarred over vesicular lesions an her right posterior chest, right axilla and right anterior chest, there is no increased warmth or erythema, there is no discharge, there is no sign of a bacterial infection General skin exam: no rashes or lesions noted Neuro: General: oriented to person and oriented to place Cranial nerves: Yes CN's II-XII intact bilaterally and Yes Equal, round and reactive pupils present Cognition (Neuro): normal cognition Motor exam (neuro): 5/5 motor strength present throughout Extrem: General: Yes normal to inspection Psych: Appearance: grossly normal Speech and movement: Normal speech and movement present Affect: normal affect Attitude: cooperative Thought process: Normal thought process present Thought content: Normal thought content present Course Course Course Narrative: 81-year-old female who was diagnosed with shingles 1 week prior who has completed a course of valacyclovir, gabapentin and oxycodone and presents with increased pain, nausea and diarrhea. Physical examination is consistent with herpes zoster rash and her pain is consistent with herpetic neuralgia. The patient's 12 EKG was unremarkable. CBC was normal and her troponin was below detectable limits. I prescribed another course of gabapentin 100 mg 3 times a day for 1 month. She was advised to take extra-strength Tylenol 500 mg, 2 pills every 4 hours as needed for pain and for pain not relieved by Tylenol, she prescribed oxycodone 5 mg pills, 1 pill every 4 hours as needed for pain. The patient was discharged home. The patient was given verbal and printed instructions prior to discharge. The patient was advised to follow-up with her PCP in 2 days and to return to the emergency department if her symptoms get worse or if she develops any new symptoms that are concerning to her. Medical Decision Making Lab Data Result diagrams: 07/01/21 14:38 07/01/21 14:38 Labs: Lab Results 07/01/21 07/01/21 Range/Units 14:38 14:38 WBC 10.8 (4.8-10.8) X10*3/uL RBC 4.21 (4.20-5.50) X10*6/uL Hgb 13.8 (12.0-16.0) g/dl Hct 39.7 (37-47) % MCV 94.3 (80-98) fL MCH 32.8 (27.0-33.0) pg MCHC 34.8 (31.0-35.0) g/dl RDW 13.0 (11.0-16.0) % Plt Count 216 (160-400) X10*3/uL MPV 9.2 L (9.4-12.3) fL Immature Gran % (Auto) 0.8 H (0.0-0.4) % Neut % (Auto) 44.0 L (45-73) % Lymph % (Auto) 44.3 H (20-40) % Davison % (Auto) 8.2 (2-11) % Eos % (Auto) 2.3 (0-4) % Baso % (Auto) 0.4 (0-2) % Lymph # (Auto) 4.8 (1.2-4.9) X10*3/uL Davison # (Auto) 0.9 (0.1-1.2) X10*3/uL Eos # (Auto) 0.3 (0.0-0.4) X10*3/uL Baso # (Auto) 0.0 (0.0-0.2) X10*3/uL Abs Immat Gran (auto) 0.09 H (0.00-0.03) X10*3/uL Absolute Neuts (auto) 4.8 (2.0-8.3) X10*3/uL Absolute Nucleated RBC 0.000 (0.0-0.012) X10*3/uL Nucleated RBC % (auto) 0.0 (0.0-0.2) /100WBC Troponin I High Sens < 3.5 (<3.5-17.0) ng/L Discharge Plan Discharge Clinical Impression: Nausea Chest pain Qualifiers: Chest pain type: other chest pain Qualified Code(s): R07.89 - Other chest pain Shingles Qualifiers: Herpes zoster complications: unspecified herpes zoster complication Qualified Code(s): B02.8 - Zoster with other complications Diarrhea Qualifiers: Diarrhea type: unspecified type Qualified Code(s): R19.7 - Diarrhea, unspecified Patient Disposition: Home, Self-Care Instructions: Shingles (ED) Additional Instructions: Your 12 EKG was unremarkable. Your troponin (a marker of heart damage) was below detectable limits which is reassuring. Your complete blood count was normal. Your comprehensive metabolic panel was pending but I do not anticipate and significant abnormalities. Your pain is consistent with your shingles (herpes zoster) infection. The nerve pain caused by shingles can be severe and can sometimes last weeks to months. I am represcribed being the gabapentin 100 mg 3 times a day for nerve pain. I am also giving you another prescription for oxycodone 5 mg pills, 1 pill every 4-6 hours as needed for pain. This medication can be addicting, if your concerned about addiction do not get this medicine filled or ask the pharmacist for less pills. This medication will make you sleepy in constipated and can sometimes make you confused. Follow-up with your doctor in 2 days. Please return to the emergency department if your symptoms get worse or if you develop any symptoms that are concerning to you. Prescriptions: New gabapentin 100 mg capsule 100 mg PO TID 30 Days Qty: 90 RF: 0 oxycodone 5 mg capsule 5 mg PO Q4H PRN (Reason: pain) Qty: 14 RF: 0 No Action lisinopril 5 mg tablet 5 mg PO DAILY Qty: 90 RF: 2 atorvastatin 20 mg tablet 20 mg PO DAILY Qty: 90 RF: 3 meloxicam 15 mg tablet 15 mg PO DAILY Qty: 90 RF: 2 valacyclovir 1 gram tablet 1,000 mg PO Q8H 7 Days Qty: 21 RF: 0 prednisone 20 mg tablet 40 mg PO DAILY 6 Days Qty: 12 RF: 0 gabapentin 100 mg capsule 100 mg PO TID PRN (Reason: Neuralgia) 7 Days Qty: 21 RF: 0 oxycodone 5 mg tablet 5 mg PO BEDTIME PRN (Reason: pain) Qty: 3 RF: 0 trospium 20 mg tablet 20 mg PO BID RF: 0 aspirin [Adult Aspirin Regimen] 81 mg tablet,delayed release (DR/EC) 81 mg PO DAILY RF: 0 cholecalciferol (vitamin D3) 50 mcg (2,000 unit) capsule 50 mcg PO DAILY RF: 0 docusate sodium [Colace] 100 mg capsule 100 mg PO DAILY RF: 0 mxhvhgsp-qxne-zfo1-C-suzie-bosw 750 mg-644 mg- 30 mg-1 mg tablet 1 tab PO DAILY RF: 0 cyanocobalamin (vitamin B-12) 50 mcg lozenge 100 mcg PO DAILY RF: 0 omega-3 fatty acids [Fish Oil Concentrate] 1,000 mg capsule 1,000 mg PO DAILY RF: 0 polyethylene glycol 3350 [Miralax] 17 gram/dose powder 17 g PO DAILY RF: 0 ondansetron 8 mg tablet,disintegrating 8 mg PO Q8H RF: 0 estradiol 0.01 % (0.1 mg/gram) cream 1 g vaginal 2XW RF: 0 biotin 5,000 mcg tablet,disintegrating See Rx Instructions PO DAILY RF: 0 ascorbic acid (vitamin C) 500 mg capsule PO RF: 0 Interventions: ED Discharge Assessment Last Done: 07/01/21 16:35 Discharge Date/Time: 07/01/21 16:35
== END 2021-07-01 16:35 | disposition home or self-care (01) ==
PROVIDERS: Emergency Provider Emergency Medicine Emergency Medical Services; PCP Internal Medicine
DX: B02.9 Zoster without complications (principal); R07.89 Other chest pain; R19.7 Diarrhea, unspecified; R11.2 Nausea with vomiting, unspecified; Z87.891 Personal history of nicotine dependence; Z79.899 Other long term (current) drug therapy
CPT/HCPCS: 36415; 84484; 85025; 93005; 99284

== ENCOUNTER 2021-07-17 15:52 | Outpatient (REF) | payer MEDICARE, SELFPAY | END 2021-07-17 15:53 | disposition home or self-care (01) | LOC: HO.LAB 15:52 | PROVIDERS: PCP Internal Medicine; Visit Provider Internal Medicine | DX: Z13.89 Encounter for screening for other disorder (principal) ==

== ENCOUNTER 2021-07-18 11:50 | Outpatient (REF) | payer MEDICARE, SELFPAY ==
[2021-07-18 12:08] LABS: Appearance Urine CLEAR; Color Urine YELLOW; Glucose Urine UA NEG (NEG); Leukocyte Esterase Urine 1+ (NEG); Nitrite Urine POS (NEG); UACC Culture Trigger YES; Urine Blood NEG (NEG); Urine Ketones NEG (NEG); Urine Protein NEG (NEG-TRACE)
[2021-07-18 13:14] LABS: Squamous Epithelial Cell Urine TRACE /LPF
[2021-07-18 13:16] LABS: Bacteria Urine 3+ /LPF; RBC Urine 0 /HPF (0)
== END 2021-07-18 11:51 | disposition home or self-care (01) ==
LOC: HO.LNP 11:50
PROVIDERS: Visit Provider Internal Medicine
DX: R30.0 Dysuria (principal)
CPT/HCPCS: 81001; 81003; 87086; 87088; 87186

== ENCOUNTER 2021-08-13 14:42 | Outpatient (REF) | payer MEDICARE, SELFPAY ==
--- NOTE | ~2021-08-13 | US_ITS ---
EXAMINATION: US VENOUS ULTRASOUND WITH DOPPLER LOWER EXTREMITY, LEFT CLINICAL INFORMATION: Left lower extremity edema. COMPARISON: None TECHNIQUE: Ultrasound of the deep veins is performed from the hip to the calf with compression sonography and color and pulse Doppler assessment. Spectral analysis with color-flow imaging is performed. FINDINGS: There is no evidence for deep venous thrombosis in the left common femoral, profunda femoral, femoral, popliteal and posterior tibial veins. The distal peroneal and posterior tibial veins were difficult to interrogate secondary to overlying subcutaneous edema. No left popliteal cyst. If the patient's symptoms persist, followup ultrasound in 5 days 7 days might be of value to exclude proximal propagation from a non-visualized calf vein. US/US venous duplex LE LT IMPRESSION: 1. No evidence for deep venous thrombosis in the visualized veins of the left lower extremity. 2. Mild subcutaneous edema in the left calf. No focal abnormality.
== END 2021-08-13 14:43 | disposition home or self-care (01) ==
LOC: HO.US 14:42
PROVIDERS: PCP Internal Medicine; Visit Provider Internal Medicine
DX: M79.89 Other specified soft tissue disorders (principal)
CPT/HCPCS: 93971

== ENCOUNTER 2021-09-11 10:11 | Outpatient (REF) | payer MEDICARE, SELFPAY ==
[2021-09-11 10:34] LABS: MANUAL DIFF FLAG NO
[2021-09-11 11:00] LABS: Basophils Percent Auto 0.7 % (0-2); Eosinophils Absolute Auto 0.1 X10*3/uL (0.0-0.4); Eosinophils Percent Auto 1.2 % (0-4); Hematocrit 33.3 % (37.0-47.0); Hemoglobin 11.5 g/dl (12.0-16.0); Imm Gran Abs Auto 0.01 X10*3/uL (0.00-0.03); Imm Gran Pct Auto 0.2 % (0.0-0.4); Lymphocytes Absolute Auto 1.5 X10*3/uL (1.2-4.9); Lymphocytes Percent Auto 25.5 % (20-40); Mean Corpuscular HGB Conc 34.5 g/dl (31.0-35.0); Mean Corpuscular Hemoglobin 33.5 pg (27.0-33.0); Mean Corpuscular Volume 97.1 fL (80.0-98.0); Mean Platelet Volume 9.5 fL (9.4-12.3); Monocytes Absolute Auto 0.6 X10*3/uL (0.1-1.2); Monocytes Percent Auto 9.8 % (2-11); Neutrophils Absolute Auto 3.7 x10*3/uL (2.0-8.3); Neutrophils Percent Auto 62.6 % (45-73); Platelet Count 213 X10*3/uL (160-400); Red Blood Count 3.43 X10*6/uL (4.20-5.50); Red Cell Distribution Width 13.8 % (11.0-16.0); White Blood Count 5.9 X10*3/uL (4.8-10.8)
[2021-09-11 11:32] LABS: B Type Natriuretic Peptide 140 pg/mL (<100)
[2021-09-11 11:42] LABS: Alanine Aminotransferase 15 U/L (0-31); Albumin Level 4.6 g/dL (3.5-5.0); Alkaline Phosphatase 40 U/L (39-117); Anion Gap 13 (12-20); Aspartate Amino Transferase 19 U/L (5-31); Bilirubin Total 0.6 mg/dL (0.0-1.0); Blood Urea Nitrogen 23 mg/dL (9-16); Calcium 9.8 mg/dL (8.4-10.2); Carbon Dioxide 24 mmol/L (22-29); Chloride 105 mmol/L (96-108); Estimated Glomerular Filt Rate 59; Glucose Random 102 mg/dL (60-115); Potassium 5.4 mmol/L (3.3-5.1); Sodium 137 mmol/L (135-145); Total Protein 7.3 g/dL (6.5-8.0)
[2021-09-11 12:03] LABS: Free T4 (Free Thyroxine) 0.93 ng/dL (0.71-1.85); Thyroid Stimulating Hormone 0.44 uIU/mL (0.32-4.0)
== END 2021-09-11 10:12 | disposition home or self-care (01) ==
LOC: HO.LAB 10:11
PROVIDERS: PCP Internal Medicine; Visit Provider Internal Medicine
DX: M79.89 Other specified soft tissue disorders (principal)
CPT/HCPCS: 36415; 80053; 83880; 84439; 84443; 85025

== ENCOUNTER 2021-09-24 09:27 | Outpatient (REF) | payer MEDICARE, SELFPAY ==
[2021-09-24 10:32] LABS: Anion Gap 12 (12-20); Blood Urea Nitrogen 28 mg/dL (9-16); Calcium 9.8 mg/dL (8.4-10.2); Carbon Dioxide 26 mmol/L (22-29); Chloride 103 mmol/L (96-108); Estimated Glomerular Filt Rate 49; Glucose Random 98 mg/dL (60-115); Potassium 5.6 mmol/L (3.3-5.1); Sodium 135 mmol/L (135-145)
== END 2021-09-24 09:28 | disposition home or self-care (01) ==
LOC: HO.LAB 09:27
PROVIDERS: PCP Internal Medicine; Visit Provider Internal Medicine
DX: E87.5 Hyperkalemia (principal)
CPT/HCPCS: 36415; 80048

== ENCOUNTER 2021-11-09 15:04 | Outpatient (REF) | payer MEDICARE, SELFPAY ==
[2021-11-09 16:16] LABS: Anion Gap 12 (12-20); Blood Urea Nitrogen 22 mg/dL (9-16); Calcium 9.9 mg/dL (8.4-10.2); Carbon Dioxide 26 mmol/L (22-29); Chloride 106 mmol/L (96-108); Estimated Glomerular Filt Rate > 60; Glucose Random 119 mg/dL (60-115); Potassium 4.1 mmol/L (3.3-5.1); Sodium 140 mmol/L (135-145)
== END 2021-11-09 15:05 | disposition home or self-care (01) ==
LOC: HO.LAB 15:04
PROVIDERS: PCP Internal Medicine; Visit Provider Internal Medicine
DX: E87.5 Hyperkalemia (principal)
CPT/HCPCS: 36415; 80048

== ENCOUNTER → 2021-11-26 09:23 | Outpatient (BNVA) | payer MEDICARE, SELFPAY | PROVIDERS: PCP Internal Medicine; Visit Provider Internal Medicine | DX: B02.29 Other postherpetic nervous system involvement (principal) | CPT/HCPCS: 99202 ==

== ENCOUNTER → 2021-11-29 11:06 | Outpatient (BNVA) | payer MEDICARE, SELFPAY | PROVIDERS: PCP Internal Medicine; Visit Provider Surgery Vascular Surgery | DX: I83.12 Varicose veins of left lower extremity with inflammation (principal) | CPT/HCPCS: 99202 ==

== ENCOUNTER 2021-12-04 10:31 | Outpatient (REF) | payer MEDICARE, SELFPAY ==
--- NOTE | ~2021-12-04 | US_ITS ---
EXAMINATION: BILATERAL LOWER EXTREMITY VENOUS ULTRASOUND (Reflux Exam) CLINICAL INDICATION: Varicose veins of left lower extremity. COMPARISON: Left lower extremity venous Doppler ultrasound on 08/13/2021. TECHNIQUE: Color flow triplex imaging and compression Doppler was performed to evaluate both the deep and the superficial systems bilaterally. To evaluate the superficial system, the examination was performed in the upright position. Color-flow Doppler ultrasound and compression ultrasound were utilized. In addition, maneuvers were utilized to demonstrate reflux. FINDINGS: SUPERFICIAL ULTRASOUND WITH DOPPLER OF RIGHT LOWER EXTREMITY GREAT SAPHENOUS VEIN: Saphenofemoral junction: 0.5 cm Max diameter: 0.5 cm Min diameter: 0.2 cm Reflux: No evidence of reflux. DUPLICATED MEDIAL GREAT SAPHENOUS VEIN: Max Diameter: None Imaged Reflux: NA DUPLICATED LATERAL GREAT SAPHENOUS VEIN: Diameter: 0.3 cm at the junction Reflux: None SMALL SAPHENOUS VEIN: Proximal Calf: 0.2 cm Distal Calf: 0.2 cm Reflux: No evidence of reflux. VEIN OF GIACOMINI: None Imaged. PERFORATORS: Location: None Imaged Reflux: NA VARICOSITIES: Location: None Imaged Reflux: NA DEEP VENOUS ULTRASOUND OF THE RIGHT LOWER EXTREMITY: Common Femoral Vein: Compressible, normal respiratory variation and augmented flow. Femoral vein: Compressible, normal color flow and augmentation. Popliteal Vein: Compressible, normal augmentation. Deep Reflux: There is no evidence of reflux in the deep system in either the common femoral vein or the popliteal vein. Cardona's Cyst: There is no evidence of a Cardona's cyst. SUPERFICIAL ULTRASOUND WITH DOPPLER OF LEFT LOWER EXTREMITY GREAT SAPHENOUS VEIN: Saphenofemoral junction: 0.6 cm Max diameter: 0.6 cm Min diameter: 0.2 cm Reflux: No evidence of reflux. DUPLICATED MEDIAL GREAT SAPHENOUS VEIN: Max Diameter: 0.3 cm at the junction Reflux: None DUPLICATED LATERAL GREAT SAPHENOUS VEIN: Diameter: None Imaged Reflux: NA SMALL SAPHENOUS VEIN: Proximal Calf: 0.2 cm Distal Calf: 0.2 cm Reflux: There is greater than 2.8 seconds of reflux at the distal calf VEIN OF GIACOMINI: None Imaged. PERFORATORS: Location: Proximal calf, 0.2 cm Reflux: None VARICOSITIES: Location: Proximal calf, 1 mm Reflux: Greater than 2.4 seconds of reflux DEEP VENOUS ULTRASOUND OF THE LEFT LOWER EXTREMITY: Common Femoral Vein: Compressible, normal respiratory variation and augmented flow. Femoral vein: Compressible, normal color flow and augmentation. Popliteal Vein: Compressible, normal augmentation. Deep Reflux: There is no evidence of reflux in the deep system in either the common femoral vein or the popliteal vein. Cardona's Cyst: There is no evidence of a Cardona's cyst. US/US venous duplex LE BI IMPRESSION: 1. No evidence of great saphenous venous insufficiency involving either lower extremity. 2. There is segmental reflux involving the left small saphenous vein within the distal calf. 3. There is a small refluxing varicosity within the left proximal calf. 4. No right-sided varicosities identified. 5. No evidence of DVT or deep venous insufficiency.
== END 2021-12-04 10:32 | disposition home or self-care (01) ==
LOC: HO.US 10:31
PROVIDERS: Visit Provider Surgery Vascular Surgery
DX: I83.12 Varicose veins of left lower extremity with inflammation (principal)
CPT/HCPCS: 93970

== ENCOUNTER → 2021-12-11 11:15 | Outpatient (BNVA) | payer MEDICARE, SELFPAY | PROVIDERS: PCP Internal Medicine; Visit Provider Surgery Vascular Surgery | DX: I83.12 Varicose veins of left lower extremity with inflammation (principal) | CPT/HCPCS: 99212 ==

== ENCOUNTER 2021-12-19 06:39 | Outpatient (REF) | payer MEDICARE, SELFPAY ==
--- NOTE | ~2021-12-19 | FL_ITS ---
EXAMINATION: XR FLUOROSCOPY WITH IMAGES CLINICAL INFORMATION: Postherpetic nervous system involvement. COMPARISON: None. TECHNIQUE: Fluoroscopy performed by RHYS Vazquez Fluoroscopy time: 0.4 minutes DAP: 2.32 Gycm2 Images: 2 FINDINGS: There are 2 oblique images obtained revealing needle positioned inferior to right 4th lamina with contrast opacifying the posterior epidural space. Visualized bones are grossly unremarkable. FL/FL guidance in treatment room IMPRESSION: Fluoroscopy was provided to referring physician for pain management.
== END 2021-12-19 06:40 | disposition home or self-care (01) ==
LOC: HO.RADIR 06:39
PROVIDERS: Visit Provider Internal Medicine
DX: B02.23 Postherpetic polyneuropathy (principal); B02.29 Other postherpetic nervous system involvement
CPT/HCPCS: 62321; J1100; Q9967

== ENCOUNTER → 2022-01-28 09:13 | Outpatient (BNVA) | payer MEDICARE, SELFPAY | PROVIDERS: PCP Internal Medicine; Visit Provider Internal Medicine | DX: Z13.89 Encounter for screening for other disorder (principal) | CPT/HCPCS: Q3014 ==

== ENCOUNTER 2022-03-13 07:10 | Outpatient (REF) | payer MEDICARE, SELFPAY ==
[2022-03-13 07:23] LABS: MANUAL DIFF FLAG NO
[2022-03-13 07:59] LABS: Basophils Absolute Auto 0.1 X10*3/uL (0.0-0.2); Basophils Percent Auto 0.9 % (0-2); Eosinophils Absolute Auto 0.3 X10*3/uL (0.0-0.4); Eosinophils Percent Auto 3.7 % (0-4); Hematocrit 34.9 % (37.0-47.0); Hemoglobin 11.8 g/dl (12.0-16.0); Imm Gran Abs Auto 0.01 X10*3/uL (0.00-0.03); Imm Gran Pct Auto 0.1 % (0.0-0.4); Lymphocytes Absolute Auto 1.8 X10*3/uL (1.2-4.9); Lymphocytes Percent Auto 26.2 % (20-40); Mean Corpuscular HGB Conc 33.8 g/dl (31.0-35.0); Mean Corpuscular Hemoglobin 32.5 pg (27.0-33.0); Mean Corpuscular Volume 96.1 fL (80.0-98.0); Mean Platelet Volume 9.8 fL (9.4-12.3); Monocytes Absolute Auto 0.8 X10*3/uL (0.1-1.2); Monocytes Percent Auto 11.7 % (2-11); Neutrophils Absolute Auto 3.9 x10*3/uL (2.0-8.3); Neutrophils Percent Auto 57.4 % (45-73); Platelet Count 219 X10*3/uL (160-400); Red Blood Count 3.63 X10*6/uL (4.20-5.50); Red Cell Distribution Width 12.5 % (11.0-16.0); White Blood Count 6.8 X10*3/uL (4.8-10.8)
[2022-03-13 08:30] LABS: Alanine Aminotransferase 25 U/L (0-31); Albumin Level 4.1 g/dL (3.5-5.0); Alkaline Phosphatase 53 U/L (39-117); Anion Gap 15 (12-20); Aspartate Amino Transferase 19 U/L (5-31); Blood Urea Nitrogen 17 mg/dL (9-16); Calcium 9.9 mg/dL (8.4-10.2); Carbon Dioxide 25 mmol/L (22-29); Chloride 105 mmol/L (96-108); Cholesterol 151 mg/dL; Estimated Glomerular Filt Rate > 60; Glucose Random 115 mg/dL (60-115); HDL Cholesterol 41 mg/dL; LDL Cholesterol Calculated 94 mg/dl; Potassium 4.5 mmol/L (3.3-5.1); Sodium 140 mmol/L (135-145); Total Protein 7.1 g/dL (6.5-8.0); Triglycerides 83 mg/dL
[2022-03-13 08:54] LABS: Free T4 (Free Thyroxine) 1.02 ng/dL (0.71-1.85)
[2022-03-13 14:29] LABS: Folate > 20.0 ng/mL (> or = 4.0); Vitamin B12 1062 pg/mL (200-900)
== END 2022-03-13 07:11 | disposition home or self-care (01) ==
LOC: HO.LAB 07:10
PROVIDERS: PCP Internal Medicine; Visit Provider Internal Medicine
DX: E78.00 Pure hypercholesterolemia, unspecified (principal); I10 Essential (primary) hypertension
CPT/HCPCS: 36415; 80053; 80061; 82607; 82746; 84439; 84443; 85025

== ENCOUNTER 2022-03-20 05:56 | Outpatient (REF) | payer MEDICARE, SELFPAY | END 2022-03-20 05:57 | disposition home or self-care (01) | LOC: HO.RADIR 05:56 | PROVIDERS: Visit Provider Internal Medicine | DX: B02.23 Postherpetic polyneuropathy (principal); B02.29 Other postherpetic nervous system involvement | CPT/HCPCS: 62321; J1040; Q9967 ==

== ENCOUNTER 2022-06-21 11:10 | Outpatient (REF) | payer MEDICARE, SELFPAY ==
[2022-06-21 12:06] LABS: Appearance Urine Clear; Color Urine Yellow; Glucose Urine UA Negative (Negative); Leukocyte Esterase Urine Trace (Negative); Nitrite Urine Negative (Negative); Urine Blood Negative (Negative); Urine Ketones Negative (Negative); Urine Protein Negative (Neg-Trace)
[2022-06-21 12:12] LABS: Bacteria Urine None Seen (None Seen); Hyaline Casts Urine 0-2 /LPF (0-2); RBC Urine 0-2 /HPF (0-2); Squamous Epithelial Cell Urine 0-2 /HPF (0-2); WBC Urine 0-5 /HPF (0-5)
== END 2022-06-21 11:11 | disposition home or self-care (01) ==
LOC: HO.LAB 11:10
PROVIDERS: PCP Internal Medicine; Visit Provider Internal Medicine
DX: R30.0 Dysuria (principal)
CPT/HCPCS: 81001

== ENCOUNTER 2022-07-03 07:57 | Outpatient (REF) | payer MEDICARE, SELFPAY ==
--- NOTE | ~2022-07-03 | MM_ITS ---
EXAMINATION: BONE DENSITOMETRY CLINICAL INDICATION: Age-related osteoporosis without current pathological fracture. COMPARISON: Previous BD dated 12/15/2019 and baseline BD dated 05/30/2015. TECHNIQUE: Using a Group 47 DXA System (software version: 13.1) manufactured by [employer], dual-energy x-ray absorptiometry was performed of the lumbar spine and left hip. The images are of good technical quality. Summary results are attached. FINDINGS: AP SPINE L1-L4 (excluding L2 and L3): The data of L1-L4 has been changed to exclude the L2 and L3 vertebral bodies, because curvature and degenerative changes at these levels may cause overestimation of lumbar spine density. Current: BMD 1.223 g/cm2, Z-score 1.7, T-score 0.5, normal, 2.1% decrease from previous, 9.4% increase from baseline (<5% change is not significant). Prior: BMD 1.249 g/cm2. Baseline: BMD 1.118 g/cm2. LEFT FEMUR, NECK: Current: BMD 0.752 g/cm2, Z-score -0.3, T-score -2.1, osteopenia. Prior: BMD 0.775 g/cm2. Baseline: BMD 0.745 g/cm2. LEFT FEMUR, TOTAL: Current: BMD 0.874 g/cm2, Z-score 0.5, T-score -1.1, osteopenia, 3.7% increase from previous, 0.2% decrease from baseline (<5% change is not significant). Prior: BMD 0.843 g/cm2. Baseline: BMD 0.876 g/cm2. IDENTIFIED RISK FACTORS: Early menopause, secondary osteoporosis, height loss, osteoporosis. HISTORY OF FRACTURE: None listed. MEDICATIONS: Calcium supplements or multivitamin, vitamin D. MM/XR DEXA axial skeleton IMPRESSION: 1. DIAGNOSIS: Osteopenia based on the lowest T-score value of -2.1 in the femoral neck applying World Health Organization criteria. 2. 10-YEAR FRACTURE RISK PREDICTION, FRAX: Major osteoporotic fracture (clinical spine, forearm, hip or shoulder) 15.3%. Hip fracture 4.5%. 3. Treatment Recommendations: NOF guidelines recommend consideration for treatment in postmenopausal women and men age 50 and older presenting with the following: -A hip or vertebral (clinical or morphometric) fracture. -T-score less than or equal to -2.5 at the femoral neck or spine after appropriate evaluation to exclude secondary causes. -Low bone mass at the hip or spine and a 10-year fracture probability by FRAX of greater than or equal to 3% for hip fracture or greater than or equal to 20% for major osteoporotic fracture based on the [place] adapted WHO algorithm. 4. Other Recommendations: All treatment decisions require clinical judgment and consideration of individual patient factors, including patient preferences, comorbidities, previous drug use, risk factors not captured in the FRAX model (e.g. frailty, falls, vitamin D deficiency, increased bone turnover, interval significant decline in bone density) and possible under or overestimation of fracture risk by FRAX. Additional medical evaluation for secondary cause of low bone mineral density may be appropriate. FUTURE SCAN RECOMMENDATION: People with diagnosed cases of osteoporosis or at high risk for fracture should have regular bone mineral density tests. For patients eligible for Medicare, routine testing is allowed once every 2 years. The testing frequency can be increased to one year for patients who have rapidly progressing disease, those who are receiving or discontinuing medical therapy to restore bone mass, or have additional risk factors.
== END 2022-07-03 07:58 | disposition home or self-care (01) ==
LOC: HO.MAMMO 07:57
PROVIDERS: PCP Internal Medicine; Visit Provider Internal Medicine
DX: Z13.820 Encounter for screening for osteoporosis (principal); M81.0 Age-related osteoporosis without current pathological fracture; M85.80 Other specified disorders of bone density and structure, unspecified site; Z78.0 Asymptomatic menopausal state
CPT/HCPCS: 77080

== ENCOUNTER 2022-11-13 13:27 | Outpatient (REF) | payer MEDICARE, SELFPAY ==
--- NOTE | ~2022-11-13 | MM_ITS ---
EXAMINATION: MM SCREENING DIGITAL BREAST TOMOSYNTHESIS, BILATERAL CLINICAL INFORMATION: Screening. Asymptomatic. The lifetime risk of breast cancer based on the Tyrer-Cuzick Model is 3%. COMPARISON: Mammography: October 04, 2020 and studies dating back to April 30, 2016 TECHNIQUE: Digital breast tomosynthesis is performed in both the craniocaudal and mediolateral oblique views along with computer-aided detection (CAD). Synthesized 2D images are generated from the tomosynthesis. FINDINGS: The breasts are heterogeneously dense, which may obscure small masses (ACR BI-RADS breast composition Category c). There are no significant masses, abnormal calcifications, or other abnormalities. MM/MM tomosynthesis screening BI IMPRESSION: No significant changes from prior exam. ASSESSMENT: BI-RADS 1: Negative RECOMMENDATION: Routine annual mammography screening. This patient's information was entered into a reminder system with a target due date for their next mammogram.
== END 2022-11-13 13:28 | disposition home or self-care (01) ==
LOC: HO.MAMMO 13:27
PROVIDERS: PCP Internal Medicine; Visit Provider Internal Medicine
DX: Z12.31 Encounter for screening mammogram for malignant neoplasm of breast (principal)
CPT/HCPCS: 77063; 77067

== ENCOUNTER → 2022-12-31 07:50 | Outpatient (REF) | payer MEDICARE, SELFPAY ==
--- NOTE | 2022-12-31 07:53 | CA_ITS ---
Transthoracic Echocardiogram Patient (Last, First, Middle): Kayla Leyva A Gender: Female Date of : 1940 Age: 82 Procedure Date: 12/31/2022 Procedure Type: Transthoracic Echocardiogram Location: OP Height: 162.56 cm Weight: 79.38 kg BSA: 1.85 m2 Heart Rate: bpm BP: 142 / 72 mmHg [employer] Supervisor: ELAINE Referring MD: Gabriella Diggs MD Symptoms: I10 - Essential (primary) hypertension Study Quality: Fair, contrast ECG Rhythm: Sinus Conclusions: - The left ventricular systolic function is normal. The visually estimated ejection fraction is between 65-70%. - Severely increased right ventricular cavity size. - The left atrium is severely dilated. - There is mild mitral valve regurgitation. - There is mild to moderate tricuspid valve regurgitation. - Mild pulmonary hypertension is present. - Per history, aortic aneurysm repair, but unknown details. Consider chest CTA for further evaluation. Findings Procedure Information Contrast agent, definity, is being given per protocol without apparent complications. Left Ventricle Normal left ventricular cavity size. There is mildly increased left ventricular wall thickness. The left ventricular systolic function is normal. The visually estimated ejection fraction is between 65-70%. Evidence suggests grade II (moderate) diastolic dysfunction. There is moderate septal asymmetric hypertrophy. Right Ventricle Severely increased right ventricular cavity size. There is normal right ventricular systolic function. Atria The left atrium is severely dilated. The right atrium is moderately dilated. Aortic Valve The aortic valve was not well visualized. There is mild aortic valve regurgitation. At most, mild stenosis. Mitral Valve The mitral valve appears normal. There is mild mitral valve regurgitation. There is no mitral valve stenosis. Pulmonic Valve The pulmonic valve is likely normal. Tricuspid Valve Normal tricuspid valve structure. There is mild to moderate tricuspid valve regurgitation. Mild pulmonary hypertension is present. Great Vessels The asc aorta is normal in size. There is mild dilatation of the sinuses of Valsalva measuring 4.10 cm. Small plaque is seen in the sino tubular ridge. Per history, prior aortic repair. Possibly ascending aortic graft; cannot clearly assess. Venous The inferior vena cava is normal in size and collapses greater than 50% with inspiration. Pericardium/Pleural There is no evidence of pericardial effusion. Prior Study Comparison No prior study available for comparison. Measurements 2D Linear Measurements IVSd: 1.31 0.6-0.9/0.6-1.0 cm LVIDd: 3.67 3.9-5.3/4.2-5.9 cm LVIDd Index: 1.98 2.4-3.2/2.2-3.1 cm/m2 LVIDs: 2.08 2.0-3.6 cm LVPWd: 1.15 0.7-1.1 cm LA Diam: 4.00 2.7-3.8/3.0-4.0 cm LAIDs Index: 2.16 1.5-2.3 cm/m2 LV Mass: 188.15 67-162/88-224 g LV Mass Index: 101.70 43-95/49-115 g/m2 LVOT Diam: 2.00 3.0+(-)1.3 cm 2D Systolic Function EF 4C: 61.70 >55% EF 2C: 77.70 >55% EF BiP: 72.00 >55% Mitral Valve MV Pk E: 1.06 MV PK A: 0.57 MV Decel Time: 157.00 E/A: 1.90 E'Lateral: 12.90 E'Medial: 8.70 E/E' Med: 12.20 E/E' Lat: 8.20 PHT: 46.00 MVA PHT: 4.78 Decel [place]: 6.73 Aortic Valve AoV Pk [place]: 1.77 AoV Mn [place]: 1.27 AoV VTI: 0.46 AoV Pk Grad: 13.00 Aov Mn Grad: 7.00 [place] Cont.VTI: 1.70 AI Pk Panch[place]: 3.78 AI [place]: 2.45 LVOT LVOT Pk [place]: 0.83 LVOT Mn [place]: 0.58 LVOT VTI: 0.25 LVOT Pk Grad: 3.00 LVOT Mn Grad: 1.00 LVOT Diam: 2.00 LVOT Area: 3.14 Diastolic Function MV Pk E: 1.06 MV Pk A: 0.57 E/A: 1.90 E'Medial: 8.70 E/E' Med: 12.20 E' Laterial: 12.90 E/E' Lat: 8.20 Right Ventricle TAPSE (mm): 18.90 TVS' Panchito: 12.10 Tricuspid Valve TR Pk Panchito: 2.62 TR Pk Grad: 27.00 RA Press: 8.00 RVSP: 45.00 Great Vessels Aorta Sinus of Valsalva: 4.10 2.0-3.[address] [place]: 2.65 1.7-3.4 cm Updated in Other Vendor System with Status of Final Pool Nguyen MD electronically signed on 12/31/2022 12:02:34 PM with status of Final
== END ==
LOC: HO.CARD 07:50
PROVIDERS: PCP Internal Medicine; Visit Provider Internal Medicine
DX: I10 Essential (primary) hypertension (principal)
CPT/HCPCS: 93306; Q9957

== ENCOUNTER 2023-03-17 07:50 | Outpatient (REF) | payer MEDICARE, SELFPAY ==
[2023-03-17 08:10] LABS: MANUAL DIFF FLAG NO
[2023-03-17 08:37] LABS: Basophils Percent Auto 0.5 % (0-2); Eosinophils Absolute Auto 0.2 X10*3/uL (0.0-0.4); Eosinophils Percent Auto 2.8 % (0-4); Hematocrit 37.3 % (37.0-47.0); Hemoglobin 12.5 g/dl (12.0-16.0); Imm Gran Abs Auto 0.01 X10*3/uL (0.00-0.03); Imm Gran Pct Auto 0.2 % (0.0-0.4); Lymphocytes Absolute Auto 1.9 X10*3/uL (1.2-4.9); Lymphocytes Percent Auto 33.7 % (20-40); Mean Corpuscular HGB Conc 33.5 g/dl (31.0-35.0); Mean Corpuscular Hemoglobin 31.6 pg (27.0-33.0); Mean Corpuscular Volume 94.2 fL (80.0-98.0); Mean Platelet Volume 10.1 fL (9.4-12.3); Monocytes Absolute Auto 0.7 X10*3/uL (0.1-1.2); Monocytes Percent Auto 11.6 % (2-11); Neutrophils Percent Auto 51.2 % (45-73); Platelet Count 155 X10*3/uL (160-400); Red Blood Count 3.96 X10*6/uL (4.20-5.50); Red Cell Distribution Width 12.7 % (11.0-16.0); White Blood Count 5.8 X10*3/uL (4.8-10.8)
[2023-03-17 08:59] LABS: Alanine Aminotransferase 17 U/L (0-31); Albumin Level 4.4 g/dL (3.5-5.0); Alkaline Phosphatase 57 U/L (39-117); Anion Gap 14 (12-20); Aspartate Amino Transferase 19 U/L (5-31); Blood Urea Nitrogen 19 mg/dL (9-16); Calcium 9.9 mg/dL (8.4-10.2); Carbon Dioxide 27 mmol/L (22-29); Chloride 108 mmol/L (96-108); Cholesterol 137 mg/dL; Estimated Glomerular Filt Rate > 60; Glucose Random 105 mg/dL (60-115); HDL Cholesterol 43 mg/dL; LDL Cholesterol Calculated 79 mg/dl; Potassium 4.8 mmol/L (3.3-5.1); Sodium 144 mmol/L (135-145); Total Protein 7.2 g/dL (6.5-8.0); Triglycerides 77 mg/dL
[2023-03-17 09:31] LABS: Erythrocyte Sedimentation Rate 14 MM/HR (0-20)
[2023-03-17 09:34] LABS: Folate 19.2 ng/mL (> or = 4.0); Free T4 (Free Thyroxine) 0.95 ng/dL (0.71-1.85); Thyroid Stimulating Hormone 0.62 uIU/mL (0.32-4.0); Vitamin B12 1123 pg/mL (200-900); Vitamin D 25-OH Total 70.1 ng/mL (>30)
== END 2023-03-17 07:51 | disposition home or self-care (01) ==
LOC: HO.LAB 07:50
PROVIDERS: PCP Internal Medicine; Visit Provider Internal Medicine
DX: E78.00 Pure hypercholesterolemia, unspecified (principal); E55.9 Vitamin D deficiency, unspecified
CPT/HCPCS: 36415; 80053; 80061; 82306; 82607; 82746; 84439; 84443; 85025; 85652; 86140

== ENCOUNTER 2023-03-30 11:11 | Emergency (ER) | payer MEDICARE, SELFPAY ==
--- NOTE | ~2023-03-30 | CT_ITS ---
EXAMINATION: CT CHEST WITH IV CONTRAST CT ABDOMEN AND PELVIS WITH IV CONTRAST CLINICAL INFORMATION: History of right rib pain and ecchymosis after fall. Right upper quadrant pain and ecchymosis as well. Evaluate for liver injury. COMPARISON: None TECHNIQUE: Multidetector CT imaging examination of the chest, abdomen and pelvis was performed with intravenous administration of 70 mL Omnipaque 350. Axial images are displayed at 0.6 mm and 5 mm slice thickness. Oral contrast not given. Coronal and sagittal reformatted images were generated at the technologist's workstation and submitted for review. This CT examination was performed using dose optimization techniques as appropriate, variously including the following: *Automated exposure control *Adjustment of mA and/or kV according to patient size (this includes techniques or standardized protocols for targeted exams where dose is matched to indication/reason for exam; i.e. extremities or head) *Use of iterative reconstruction technique DLP: 952 mGy-cm FINDINGS: CHEST - LUNGS AND PLEURA: Mild atelectasis in lower lobes. No airspace disease. No pleural effusion or pneumothorax. MEDIASTINUM/LOWER NECK: Cardiomegaly. Atherosclerotic calcification of coronary arteries is present, status post coronary artery bypass graft surgery. Pulmonary arteries are normal in caliber. There is extensive atherosclerotic calcification of the dilated and tortuous thoracic aorta. The aortic root is 3.4 cm and proximal ascending aorta is normal in caliber. However, distal ascending aorta, arch and descending aorta are dilated. The distal ascending aorta and proximal arch are 4.5 cm diameter. Distal to the takeoff of the left subclavian artery, aortic arch is 5 cm transverse diameter. The proximal and distal descending aorta measure 5 cm and 4.2 cm short axis diameter, respectively. There appears to be chronic inner wall thrombus and calcification along predominantly the posterior wall of the descending aorta. No evidence of acute aortic injury. No acute intramural hematoma or dissection. LYMPHATICS: No pathologic sized axillary, hilar or mediastinal lymph nodes. CHEST WALL/BONES OF THORAX: No mass or fluid collection in the chest wall. Sternotomy is healed with intact sternotomy wires in place. Nondisplaced fracture of right anterior fifth rib. Minimal cortical buckling of right anterior sixth rib. The acute fracture of the right anterior seventh rib is nondisplaced. Also, there is minimal nondisplaced angular fracture deformity of the right anterior eighth rib. No sternal fracture. 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 No acute fracture or traumatic subluxation of the thoracic spine. Mild degenerative anterolisthesis is noted at C7-T1 and T1-T2. ABDOMEN AND PELVIS - HEPATOBILIARY: Liver has normal size, contour and attenuation. No liver laceration or perihepatic fluid collection. Small simple cyst of hepatic segment IVb. No suspicious liver lesion. Gallbladder is absent. No dilated bile ducts. PANCREAS: No acute findings within the atrophied pancreas. No pancreatic ductal dilatation, edema or peripancreatic fluid. SPLEEN: Normal. ADRENAL GLANDS: Normal. KIDNEYS AND URETERS: Simple cysts of the kidneys. No renal imaging follow-up recommended for simple cysts. No renal stones or hydronephrosis. The ureters are unremarkable. BOWEL AND PERITONEUM: No dilated bowel loops. No focal bowel wall thickening, mesenteric fat stranding or free fluid. No hemoperitoneum or pneumoperitoneum. ABDOMINAL WALL: Mild edema in subcutaneous tissues of the right anterolateral chest and upper abdominal wall without focal fluid collection. VESSELS: Atherosclerosis of the abdominal aorta and iliac arteries. The abdominal aorta is normal in size. No retroperitoneal hematoma. Inferior vena cava is normal. LYMPH NODES: No pathologic sized lymph nodes in the abdomen or pelvis. No inguinal lymphadenopathy. BLADDER AND PELVIC VISCERA: Urinary bladder is normal. No uterine or adnexal mass. No pelvic free fluid. OTHER MUSCULOSKELETAL: Multilevel degenerative disc disease of the levoscoliotic lumbar spine. The facet osteoarthritis and degenerative disc disease at L4-5 are associated with 0.8 cm (25%) anterolisthesis of L4 on L5. No lumbar compression fracture. Pelvic bones and proximal femurs are intact. Prominent osteophytes are noted at the degenerated pubic symphysis. CT/CT abdomen pelvis w IV con IMPRESSION: * There are several acute but nondisplaced right anterior rib fractures. No chest wall hematoma. * No pulmonary contusion, pleural effusion or pneumothorax. * Atherosclerotic disease of thoracoabdominal aorta. The aneurysmal thoracic aorta measures up to 5 cm diameter. No acute aortic injury. * No evidence of liver or splenic injury. No hemoperitoneum or pneumoperitoneum.
--- NOTE | ~2023-03-30 | CT_ITS ---
EXAMINATION: CT HEAD WITHOUT CONTRAST CLINICAL INFORMATION: Pain following fall COMPARISON: September 20, 2018 TECHNIQUE: Contiguous axial imaging was performed from the skull base to vertex without intravenous administration of contrast. This CT examination was performed using dose optimization techniques as appropriate, variously including the following: *Automated exposure control *Adjustment of mA and/or kV according to patient size (this includes techniques or standardized protocols for targeted exams where dose is matched to indication/reason for exam; i.e. extremities or head) *Use of iterative reconstruction technique DLP: 719.08 mGy-cm FINDINGS: No acute intracranial hemorrhage is identified. No abnormal extra-axial fluid collection is seen. No significant mass effect or midline structure shift. Farrar-white matter interface is maintained. The ventricles, sulci, and cisterns appear unremarkable. There is some periventricular white matter low density again seen consistent with microangiopathy. Calvarium intact. Visualized paranasal sinuses and mastoid air cells unremarkable. 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 Pterygoid plates intact. Temporomandibular joints unremarkable. CT/CT head/brain wo IV con IMPRESSION: No acute intracranial pathology. Changes consistent with microangiopathy.
--- NOTE | ~2023-03-30 | CT_ITS ---
EXAMINATION: CT CERVICAL SPINE WITHOUT CONTRAST CLINICAL INFORMATION: Pain status post fall COMPARISON: None available. TECHNIQUE: CT cervical spine with coronal and sagittal reconstructions. This CT examination was performed using dose optimization techniques as appropriate, variously including the following: *Automated exposure control *Adjustment of mA and/or kV according to patient size (this includes techniques or standardized protocols for targeted exams where dose is matched to indication/reason for exam; i.e. extremities or head) *Use of iterative reconstruction technique DLP: 419.23 mGy-cm FINDINGS: No abnormal prevertebral soft tissue swelling. Paraspinal muscle fat planes are maintained. No acute cervical spine fracture is identified. There is about 2 mm of anterior subluxation of C4 on C5. There is approximately 2 mm of anterior subluxation of C7 on T1. There is degenerative narrowing and spurring noted involving the anterior articulation of C1 and C2. There is multilevel degenerative disc disease present C3-T1 with numerous regions of endplate irregularity. Spurring of the joints of L[place]ch[place] seen to cause some anterior neural foraminal encroachment on the right at the C5-C6 level. No apical lung lesion identified. Pterygoid plates intact. Temporomandibular joints unremarkable. CT/CT cervical spine wo IV con IMPRESSION: No acute cervical spine fracture identified. Diffuse cervical spondylosis as described. Fleischner guidelines were followed.
[2023-03-30 11:25] VITALS: BP 176/57; PULSE 69; RESP 18; TEMP 36.2; O2SAT 96; BMI 30.9
[2023-03-30] MEDS: oxyCODONE HCl Immed Release 5 MG TABLET PO (11:32)
--- NOTE | 2023-03-30 11:32 | ED_ITS ---
HPI - General Adult General Chief complaint: Fall Stated complaint: Fall/R rib pain Time Seen by Provider: 03/30/23 11:44 Source: patient, RN notes reviewed and old records reviewed Mode of arrival: ambulatory History of Present Illness HPI narrative: 83-year-old female with a past medical history of anemia, arthritis, HTN, COPD, TASH, HLD, presenting to the ED complaining of right-sided rib pain S/P mechanical trip and fall into exercise bike 2 hours [employer]SET [employer]. Denies symptoms prior to fall, denies head trauma or LOC. takes baby ASA daily, denies other anticoagulation. Admits pain worse with movement and breathing. Denies headache, neck/back pain, abdominal pain, nausea/vomiting, CP/SOB, incontinence/retention Onset (ago): hour(s) Related Data Home Medications Medication Instructions Recorded Confirmed aspirin 81 mg tablet,delayed 81 mg PO DAILY 09/25/20 03/19/23 release (Adult Aspirin Regimen) cholecalciferol (vitamin D3) 50 50 mcg PO DAILY 09/25/20 03/19/23 mcg (2,000 unit) capsule cyanocobalamin (vitamin B-12) 50 100 mcg PO DAILY 09/25/20 03/19/23 mcg lozenges docusate sodium 100 mg capsule 100 mg PO DAILY 09/25/20 03/19/23 (Colace) glucosamine 750 ik-qcrylsagrcn-szo 1 tab PO DAILY 09/25/20 03/19/23 no1 644 mg-C 30 mg-suzie 1 mg tablet omega-3 fatty acids 1,000 mg 1,000 mg PO DAILY 09/25/20 03/19/23 capsule (Fish Oil Concentrate) polyethylene glycol 3350 17 17 g PO DAILY 09/25/20 03/19/23 gram/dose oral powder (Miralax) multivitamin 1 tab PO DAILY 07/23/21 03/19/23 acetaminophen 500 mg tablet 500 mg PO Q4-6H PRN 09/11/21 03/19/23 (Tylenol Extra Strength) Previous Rx's Medication Instructions Recorded atorvastatin 20 mg tablet 20 mg PO DAILY #90 tabs 06/10/22 metoprolol succinate 25 mg 25 mg PO DAILY #90 tabs 11/03/22 tablet,extended release 24 hr Allergies Allergy/AdvReac Type Severity Reaction Status Date / Time amoxicillin [AMOXICILLIN] Allergy Mild UNKNOWN-HAPPENED Verified 03/19/23 12:38 IN OR 2010 milk [MILK] Allergy Unknown DIARRHEA Verified 03/19/23 12:38 lisinopril AdvReac Intermediate hyperkalemi Verified 03/19/23 12:38 a Review of Systems Review of Systems: Constitutional: No Weight loss, No Fever, No Chills ENT/Mouth: No Ear Pain, No Nasal Congestion, No sore throat, No Rhinorrhea, No Swallowing Difficulty Cardiovascular: +rib pain, No Chest Pain, No SOB Respiratory: No Cough, No Sputum, No Wheezing Gastrointestinal: No Nausea, No Vomiting, No Diarrhea, No Constipation, No Abdominal pain Genitourinary: No Dysuria, No Urinary Frequency, No Hematuria, No Urinary Incont inence/retention, No Flank Pain Musculoskeletal: No joint pain, No Myalgias, No Joint Swelling Skin: No Skin Lesions, No rash Neuro: No Weakness Yes all other systems are reviewed and are negative Constitutional: Constitutional: Reports as per [facility] Past Medical History Attestation statement: The following information was validated with the patient. Source: old records reviewed Medical History Acute meniscal tear of right knee Anemia Aortic aneurysm Arthritis Benign essential hypertension Breast cancer screening by mammogram Cataracts, bilateral COPD (chronic obstructive pulmonary disease) COVID-19 vaccine series completed Low back pain Obstructive sleep apnea Overweight (BMI 25.0-29.9) Pure hypercholesterolemia Urge incontinence Valvular heart disease Surgical History History of ankle surgery History of arthroscopy of right knee History of bladder surgery History of cholecystectomy History of urologic surgery Hx of colonoscopy Status post resection of aortic aneurysm Family History Family History Father No problems noted. Mother Hypertension CVD (cardiovascular disease) Family/Other Diabetes CAD (coronary artery disease) Social History Social History Housing: House Alcohol intake: never Patient Tobacco Use Status: Former Tobacco user Tobacco use type: Cigarette Years Smoked: stopped 52 years old e-Cigarette/Vaping Use: Never Used Second Hand Smoke Exposure: No Advance Directives: No Advance Directives Information Provided: No Current occupational status: retired Cognitive needs: No Hearing needs: No Vision needs: Yes Physical Exam ED Vital Signs: Vital Signs - 24 hr 03/30/23 11:25 03/30/23 14:28 03/30/23 14:51 Temperature 97.2 F 98.1 F Pulse Rate 69 64 Respiratory Rate 18 15 16 Blood Pressure 176/57 H 154/67 H Pulse Oximetry 96 98 Oxygen Delivery Method Room Air Room Air 03/30/23 16:43 Temperature 97.8 F Pulse Rate 56 Respiratory Rate Blood Pressure 183/95 H Pulse Oximetry 96 Oxygen Delivery Method Room Air BMI result Body Mass Index 30.9 Const General: cooperative, healthy appearing and no acute distress Orientation/consciousness: patient oriented x3 Limitations: no limitations HENMT Head: Yes normal to inspection and Yes atraumatic Ears: hearing grossly normal bilaterally General nose exam: Normal external nose present Face and sinus: Yes normal facial exam Eyes General: appearance normal, both eyes and all related structures EOM: EOMs intact bilaterally Neck Neck: Yes normal visual inspection and Yes no meningeal signs Chest Other: + ecchymosis and swelling noted to right anterior lateral lower ribs with tenderness to palpation, + palpable rib fractures. No crepitus. No erythema Resp Effort & Inspection: normal respiratory effort and no respiratory distress Auscultation: clear to auscultation bilaterally Cardio Rate: regular rate Heart sounds: S1 normal heart sound present and S2 normal heart sound present GI Inspection: Yes normal to inspection Palpation (GI): Soft to palpation, Tenderness to palpation present (GI) in the RUQ; with no rebound tenderness, no guarding and not rigid General: Yes no CVA tenderness Back/Spine/Pelvis Other: No midline cervical/thoracic/lumbar spinous tenderness/step-off or deformity Back: no CVA tenderness Skin Rashes: no rashes Neuro General: patient oriented x3, tone normal and no meningeal signs Gait exam (Neuro): Normal gait present Extrem Other: pelvis stable General: Yes normal to inspection and Yes full ROM Right upper extremity: normal to inspection Left upper extremity: normal to inspection Right lower extremity: normal to inspection Left lower extremity: normal to inspection Course Course Course Narrative: RME: Right Rib pain after falling unto bike due to tripping. Patient fell unto right side . NO head trauma. patient takes Asprind. Due to age and taking aspririn will stll order head CT and cervical Cspine CT. Dry Chest/Abdomen CT scan ordered. -labs unremarkable CT head/brain wo IV con IMPRESSION: No acute intracranial pathology. Changes consistent with microangiopathy. CT cervical spine wo IV con IMPRESSION: No acute cervical spine fracture identified. Diffuse cervical spondylosis as described.? Fleischner guidelines were followed. CT chest w IV con/CT abdomen pelvis w IV con IMPRESSION: *? There are several acute but nondisplaced right anterior rib fractures. No chest wall hematoma. *? No pulmonary contusion, pleural effusion or pneumothorax. *? Atherosclerotic disease of thoracoabdominal aorta. The aneurysmal thoracic aorta measures up to 5 cm diameter. No acute aortic injury. *? No evidence of liver or splenic injury. No hemoperitoneum or pneumoperitoneum. CHEST WALL/BONES OF THORAX: No mass or fluid collection in the chest wall. Sternotomy is healed with intact sternotomy wires in place. Nondisplaced fracture of right anterior fifth rib. Minimal cortical buckling of right anterior sixth rib. The acute fracture of the right anterior seventh rib is nondisplaced. Also, there is minimal nondisplaced angular fracture deformity of the right anterior eighth rib. No sternal fracture. 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 No acute fracture or traumatic subluxation of the thoracic spine. Mild degenerative anterolisthesis is noted at C7-T1 and T1-T2. 1545--[facility] transfer line called, patient will be trauma transfer -[id number]--spoke with the ED attending Dr. Lux in accepted transfer ED to ED with trauma consult Medications Administered Discontinued Medications Generic Name Dose Route Start Last Admin Trade Name Nicolaq PRN Reason Stop Dose Admin Acetaminophen 650 mg 03/30/23 15:20 03/30/23 15:26 Acetaminophen 325 Mg Tablet PO 03/30/23 15:21 650 mg ONCE ONE Administration Sodium Chloride 1,000 mls @ 999 mls/hr 03/30/23 15:45 03/30/23 15:50 Ns IV 03/30/23 16:45 999 mls/hr .Q1H1M DAK[place] Administration Iohexol 100 ml 03/30/23 13:49 03/30/23 13:50 Iohexol 350 Mg/Ml 100 Ml Infus..Btl IV 03/30/23 13:50 85 ml ONCE ONE Administration Morphine Sulfate 2 mg 03/30/23 14:20 03/30/23 14:28 Morphine Sulfate 2 Mg/Ml Cartridge IVPUSH 03/30/23 14:21 2 mg ONCE ONE Administration Protocol Oxycodone HCl 5 mg 03/30/23 11:27 03/30/23 11:32 Oxycodone Hcl Immed Release 5 Mg Tablet PO 03/30/23 11:28 5 mg ONCE ONE Administration Medical Decision Making Medical Decision Making MDM Narrative: 83-year-old female with a past medical history of anemia, arthritis, HTN, COPD, TASH, HLD, presenting to the ED complaining of right-sided rib pain S/P mechanical trip and fall into exercise bike 2 hours [employer]SET [employer]. On exam hypertensive, likely from pain, right-sided rib ecchymosis/swelling and tenderness noted, abdomen soft with RUQ tenderness, no rebound or guarding, no midline spinous tenderness throughout, no red flag symptoms, no focal neuro deficits. Concern for rib fracture vs contusion vs underlying liver laceration/bleeding. Lower suspicion for ICH. No evidence of cellulitis Plan: Labs, Head/C-spine, chest/abdomen/pelvis CT, UA, pain control Please refer to course for remaining clinical decision making, interpretation of labs/imaging results, and discussions with consultants and/or family members. Differential Diagnosis Differential Diagnoses: The differential diagnosis associated with the presentation includes As above Admission/Observation Consideration of admission/observation: Escalation of care including admission/observation considered Consult Healthcare Provider Management of the patient was discussed with: Accounts Receivable Analyst Lab Data [facility] Lab Attestation statement: I reviewed the patient's lab results. 03/30/23 12:09 03/30/23 12:09 Labs: Lab Results 03/30/23 03/30/23 03/30/23 Range/Units 12:09 12:09 12:09 WBC 8.1 (4.8-10.8) X10*3/uL RBC 3.91 L (4.20-5.50) X10*6/uL Hgb 12.8 (12.0-16.0) g/dl Hct 36.9 L (37.0-47.0) % MCV 94.4 (80.0-98.0) fL MCH 32.7 (27.0-33.0) pg MCHC 34.7 (31.0-35.0) g/dl RDW 12.6 (11.0-16.0) % Plt Count 158 L (160-400) X10*3/uL MPV 9.9 (9.4-12.3) fL Immature Gran % (Auto) 0.1 (0.0-0.4) % Neut % (Auto) 63.6 (45-73) % Lymph % (Auto) 23.3 (20-40) % Hendricks % (Auto) 10.0 (2-11) % Eos % (Auto) 2.4 (0-4) % Baso % (Auto) 0.6 (0-2) % Lymph # (Auto) 1.9 (1.2-4.9) X10*3/uL Hendricks # (Auto) 0.8 (0.1-1.2) X10*3/uL Eos # (Auto) 0.2 (0.0-0.4) X10*3/uL Baso # (Auto) 0.1 (0.0-0.2) X10*3/uL Abs Immat Gran (auto) 0.01 (0.00-0.03) X10*3/uL Absolute Neuts (auto) 5.1 (2.0-8.3) x10*3/uL Absolute Nucleated RBC 0.000 (0.0-0.012) X10*3/uL Nucleated RBC % (auto) 0.0 (0.0-0.2) /100WBC Sodium 144 (135-145) mmol/L Potassium 4.7 (3.3-5.1) mmol/L Chloride 107 (96-108) mmol/L Carbon Dioxide 28 (22-29) mmol/L Anion Gap 14 (12-20) BUN 16 (9-16) mg/dL Creatinine 0.87 (0.5-1.4) mg/dL Estim Creat Clear Calc 52.4 Estimated GFR > 60 Random Glucose 111 (60-115) mg/dL Calcium 9.8 (8.4-10.2) mg/dL Total Bilirubin 0.7 (0.0-1.0) mg/dL Direct Bilirubin 0.2 (0.0-0.5) mg/dL AST 23 (5-31) U/L ALT 18 (0-31) U/L Alkaline Phosphatase 68 (39-117) U/L Total Protein 7.6 (6.5-8.0) g/dL Albumin 4.5 (3.5-5.0) g/dL Lipase 42 (8-78) U/L Urine Color Yellow Urine Appearance Clear Urine pH 7.0 (5.0-9.0) Ur Specific [place] <= 1.005 (1.005-1.025) Urine Protein Negative (Neg-Trace) mg/dL Urine Glucose (UA) Negative (Negative) mg/dL Urine Ketones Negative (Negative) mg/dL Urine Blood Negative (Negative) Urine Nitrite Negative (Negative) Ur Leukocyte Esterase Trace H (Negative) Urine RBC 0-2 (0-2) /HPF Urine WBC 0-5 (0-5) /HPF Ur Squamous Epith Cells 0-2 (0-2) /HPF Urine Bacteria Trace (None Seen) Hyaline Casts 0-2 (0-2) /LPF COVID-19 ([facility]) (Negative) COVID-19 Clin Com 03/30/23 Range/Units 15:46 WBC (4.8-10.8) X10*3/uL RBC (4.20-5.50) X10*6/uL Hgb (12.0-16.0) g/dl Hct (37.0-47.0) % MCV (80.0-98.0) fL MCH (27.0-33.0) pg MCHC (31.0-35.0) g/dl RDW (11.0-16.0) % Plt Count (160-400) X10*3/uL MPV (9.4-12.3) fL Immature Gran % (Auto) (0.0-0.4) % Neut % (Auto) (45-73) % Lymph % (Auto) (20-40) % Hendricks % (Auto) (2-11) % Eos % (Auto) (0-4) % Baso % (Auto) (0-2) % Lymph # (Auto) (1.2-4.9) X10*3/uL Hendricks # (Auto) (0.1-1.2) X10*3/uL Eos # (Auto) (0.0-0.4) X10*3/uL Baso # (Auto) (0.0-0.2) X10*3/uL Abs Immat Gran (auto) (0.00-0.03) X10*3/uL Absolute Neuts (auto) (2.0-8.3) x10*3/uL Absolute Nucleated RBC (0.0-0.012) X10*3/uL Nucleated RBC % (auto) (0.0-0.2) /100WBC Sodium (135-145) mmol/L Potassium (3.3-5.1) mmol/L Chloride (96-108) mmol/L Carbon Dioxide (22-29) mmol/L Anion Gap (12-20) BUN (9-16) mg/dL Creatinine (0.5-1.4) mg/dL Estim Creat Clear Calc Estimated GFR Random Glucose (60-115) mg/dL Calcium (8.4-10.2) mg/dL Total Bilirubin (0.0-1.0) mg/dL Direct Bilirubin (0.0-0.5) mg/dL AST (5-31) U/L ALT (0-31) U/L Alkaline Phosphatase (39-117) U/L Total Protein (6.5-8.0) g/dL Albumin (3.5-5.0) g/dL Lipase (8-78) U/L Urine Color Urine Appearance Urine pH (5.0-9.0) Ur Specific [place] (1.005-1.025) Urine Protein (Neg-Trace) mg/dL Urine Glucose (UA) (Negative) mg/dL Urine Ketones (Negative) mg/dL Urine Blood (Negative) Urine Nitrite (Negative) Ur Leukocyte Esterase (Negative) Urine RBC (0-2) /HPF Urine WBC (0-5) /HPF Ur Squamous Epith Cells (0-2) /HPF Urine Bacteria (None Seen) Hyaline Casts (0-2) /LPF COVID-19 ([facility]) Negative (Negative) COVID-19 Clin Com See Note Radiology Impression Discussion of test interpretation with radiology: I have reviewed the radiol ogist's reading. External Record Review External record reviewed: Inpatient record, Office record, Outpatient record, Prior outpatient labs, Prior outpatient radiology, Primary care record and Outside ED record Tests considered The following testing was considered but not selected: As above Prescription Management I considered prescription management with: Pain Medication Critical Care Time Critical Care Time Critical Care Time: Yes Total Critical Care Time: 45 Attestation: I have personally provided critical care time exclusive of time spent on separately billable procedures. Time includes review of lab data, radiology results, discussion with consultants, and monitoring for potential decompensation. Intervention performed as documented. Discharge Plan Discharge Clinical Impression: Multiple fractures of ribs of right side Patient Disposition: [facility] Transfer Details: ED to ED accepting physician Dr. Lux Instructions: Rib Fracture (ED) Prescriptions: No Action atorvastatin 20 mg tablet 20 mg PO DAILY Qty: 90 3RF metoprolol succinate 25 mg tablet extended release 24 hr 25 mg PO DAILY Qty: 90 2RF aspirin [Adult Aspirin Regimen] 81 mg tablet,delayed release (DR/EC) 81 mg PO DAILY cholecalciferol (vitamin D3) 50 mcg (2,000 unit) capsule 50 mcg PO DAILY docusate sodium [Colace] 100 mg capsule 100 mg PO DAILY [id number] 750 mg-644 mg- 30 mg-1 mg tablet 1 tab PO DAILY Rx Instructions: give with meal/snack cyanocobalamin (vitamin B-12) 50 mcg lozenge 100 mcg PO DAILY omega-3 fatty acids [Fish Oil Concentrate] 1,000 mg capsule 1,000 mg PO DAILY polyethylene glycol 3350 [Miralax] 17 gram/dose powder 17 g PO DAILY acetaminophen [Tylenol Extra Strength] 500 mg tablet 500 mg PO Q4-6H PRN multivitamin Tablet 1 tab PO DAILY
[2023-03-30 12:14] LABS: MANUAL DIFF FLAG NO
[2023-03-30 12:15] LABS: Appearance Urine Clear; Basophils Absolute Auto 0.1 X10*3/uL (0.0-0.2); Basophils Percent Auto 0.6 % (0-2); Color Urine Yellow; Eosinophils Absolute Auto 0.2 X10*3/uL (0.0-0.4); Eosinophils Percent Auto 2.4 % (0-4); Glucose Urine UA Negative (Negative); Hematocrit 36.9 % (37.0-47.0); Hemoglobin 12.8 g/dl (12.0-16.0); Imm Gran Abs Auto 0.01 X10*3/uL (0.00-0.03); Imm Gran Pct Auto 0.1 % (0.0-0.4); Leukocyte Esterase Urine Trace (Negative); Lymphocytes Absolute Auto 1.9 X10*3/uL (1.2-4.9); Lymphocytes Percent Auto 23.3 % (20-40); Mean Corpuscular HGB Conc 34.7 g/dl (31.0-35.0); Mean Corpuscular Hemoglobin 32.7 pg (27.0-33.0); Mean Corpuscular Volume 94.4 fL (80.0-98.0); Mean Platelet Volume 9.9 fL (9.4-12.3); Monocytes Absolute Auto 0.8 X10*3/uL (0.1-1.2); Neutrophils Absolute Auto 5.1 x10*3/uL (2.0-8.3); Neutrophils Percent Auto 63.6 % (45-73); Nitrite Urine Negative (Negative); Platelet Count 158 X10*3/uL (160-400); Red Blood Count 3.91 X10*6/uL (4.20-5.50); Red Cell Distribution Width 12.6 % (11.0-16.0); Specific Gravity - Urine <= 1.005 (1.005-1.025); UMIC TRIGGER UACC YES; Urine Blood Negative (Negative); Urine Ketones Negative (Negative); Urine Protein Negative (Neg-Trace); White Blood Count 8.1 X10*3/uL (4.8-10.8)
[2023-03-30 12:20] LABS: Bacteria Urine Trace (None Seen); Hyaline Casts Urine 0-2 /LPF (0-2); RBC Urine 0-2 /HPF (0-2); Squamous Epithelial Cell Urine 0-2 /HPF (0-2); WBC Urine 0-5 /HPF (0-5)
[2023-03-30 12:29] LABS: Alanine Aminotransferase 18 U/L (0-31); Albumin Level 4.5 g/dL (3.5-5.0); Alkaline Phosphatase 68 U/L (39-117); Anion Gap 14 (12-20); Aspartate Amino Transferase 23 U/L (5-31); Bilirubin Direct 0.2 mg/dL (0.0-0.5); Bilirubin Total 0.7 mg/dL (0.0-1.0); Blood Urea Nitrogen 16 mg/dL (9-16); Calcium 9.8 mg/dL (8.4-10.2); Carbon Dioxide 28 mmol/L (22-29); Chloride 107 mmol/L (96-108); Creatinine Clr Calc Pharmacy 52.4; Estimated Glomerular Filt Rate > 60; Glucose Random 111 mg/dL (60-115); Lipase 42 U/L (8-78); Potassium 4.7 mmol/L (3.3-5.1); Sodium 144 mmol/L (135-145); Total Protein 7.6 g/dL (6.5-8.0)
--- NOTE | 2023-03-30 13:06 | PC.NURSE ---
20G IV PLACED IN RIGHT AC, PT CURRENTLY IN CT- REC STUDY WITH IV CON, PT GIVEN 5MG OXYCODONE IN TRIAGE, PT STS SHE DOES NOT NEED ANY MORE PAIN CONTROL AT THIS TIME. ADRIANNA SIDE RAILS UP FOR PT REPOSITIONING AND COMFORT. CALL [facility] WITHIN REACH WCTM
[2023-03-30] MEDS: iohexoL 350 MG/ML 100 ML INFUS..BTL IV (13:50)
[2023-03-30 14:28] VITALS: RESP 15
[2023-03-30] MEDS: Morphine Sulfate 2 MG/ML CARTRIDGE IVPUSH (14:28)
[2023-03-30 14:51] VITALS: BP 154/67; PULSE 64; RESP 16; TEMP 36.7; O2SAT 98
[2023-03-30] MEDS: Acetaminophen 325 MG TABLET 650 MG PO (15:26)
[2023-03-30] MEDS: 0.9 % Sodium Chloride 1,000 ML 999 ML IV (15:50)
[2023-03-30 16:08] LABS: COVID-19 Test Negative (Negative); IDNOW Serial# 08D9AD1C
--- NOTE | 2023-03-30 16:27 | PC.NURSE ---
consent for transfer signed by pt, imaging disk made, given to ED stenographer secretary- transfer to [facility] pending- pt understands that she is being transferred for trauma eval r/t multiple rib fractures. pt calm and cooperative, agrees with plan. awaiting EMS ETA
[2023-03-30 16:43] VITALS: BP 183/95; PULSE 56; TEMP 36.6; O2SAT 96
[2023-03-30] MEDS: Ketorolac Tromethamine 15 MG/ML VIAL IVPUSH (16:48)
[2023-03-30] MEDS: Lidocaine 4 % Patch ADH..PATCH 1 PATCH TRANSDERMA (16:48)
--- NOTE | 2023-03-30 16:51 | PC.NURSE ---
nurse to nurse called to [facility] YOLANDA Saleh RN
== END 2023-03-30 17:35 | disposition short-term general hospital (02) ==
PROVIDERS: Physician Assistant; Emergency Provider Internal Medicine; PCP Internal Medicine
DX: S22.41XA Multiple fractures of ribs, right side, initial encounter for closed fracture (principal); M96.A3 Multiple fractures of ribs associated with chest compression and cardiopulmonary resuscitation; R51.9 Headache, unspecified; M54.2 Cervicalgia; M54.6 Pain in thoracic spine; R07.81 Pleurodynia; I10 Essential (primary) hypertension; W01.10XA Fall on same level from slipping, tripping and stumbling with subsequent striking against unspecified object, initial encounter; Y93.9 Activity, unspecified; Y92.9 Unspecified place or not applicable; Y99.9 Unspecified external cause status; Z20.822 Contact with and (suspected) exposure to COVID-19; Z20.828 Contact with and (suspected) exposure to other viral communicable diseases; Z79.899 Other long term (current) drug therapy
CPT/HCPCS: 36415; 70450; 71260; 72125; 74177; 80048; 80076; 81001; 83690; 85025; 87635; 96361; 96374; 96375; 99285; J1885; J2270; Q9967

== ENCOUNTER 2023-04-10 13:10 | Outpatient (REF) | payer MEDICARE, SELFPAY ==
--- NOTE | ~2023-04-10 | US_ITS ---
EXAMINATION: US VENOUS ULTRASOUND WITH DOPPLER LOWER EXTREMITY, BILATERAL CLINICAL INFORMATION: Bilateral lower extremity edema. COMPARISON: None available. TECHNIQUE: Ultrasound of the deep veins is performed from the hip to the calf with compression sonography and color and pulse Doppler assessment. Spectral analysis with color-flow imaging is performed. FINDINGS: RIGHT: There is normal venous compression and respiratory variation and augmented flow. The visualized common femoral vein, superficial femoral vein, profunda femoral vein, popliteal vein, and the trifurcation region shows no evidence of deep venous thrombosis. There is no significant popliteal fossa cyst. LEFT: There is normal venous compression and respiratory variation and augmented flow. The visualized common femoral vein, superficial femoral vein, profunda femoral vein, popliteal vein, and the trifurcation region shows no evidence of deep venous thrombosis. There is no significant popliteal fossa cyst. If the patient's symptoms persist, followup ultrasound in 5 days 7 days might be of value to exclude proximal propagation from a non-visualized calf vein. US/US venous duplex LE BI IMPRESSION: No DVT demonstrated in the bilateral lower extremities.
== END 2023-04-10 13:11 | disposition home or self-care (01) ==
LOC: HO.US 13:10
PROVIDERS: PCP Internal Medicine; Visit Provider Internal Medicine
DX: M79.89 Other specified soft tissue disorders (principal); R60.0 Localized edema
CPT/HCPCS: 93970

== ENCOUNTER 2023-06-11 08:49 | Outpatient (AMB) | payer MEDICARE, SELFPAY ==
--- NOTE | 2023-06-11 09:01 | A.OFFVIS_ITS ---
Intake Vital Signs 06/11/23 09:02 Height 5 ft 4 in BMI Reason not done Patient refused/unable BP 140/80 H Blood Pressure Location Lt brachial Position Sitting Pulse 59 Pulse Source Pulse Oximeter Pulse Oximetry (%) 96 Oxygen Delivery Method Room Air Intake Visit Reasons: SAWV Allergies amoxicillin [AMOXICILLIN] Allergy (Mild, Verified 06/11/23 09:03) UNKNOWN-HAPPENED IN OR 2009 milk [MILK] Allergy (Unknown, Verified 06/11/23 09:03) DIARRHEA lisinopril Adverse Reaction (Intermediate, Verified 06/11/23 09:03) hyperkalemia Medication List - Last Reconciled 06/11/23 by Gabriella Diggs MD acetaminophen 325 mg PO Q6H PRN ascorbic acid (vitamin C) 1 g PO Q6H aspirin (Adult Aspirin Regimen) 81 mg PO DAILY atorvastatin 20 mg PO DAILY cholecalciferol (vitamin D3) 50 mcg PO DAILY cyanocobalamin (vitamin B-12) 100 mcg PO DAILY docusate sodium (Colace) 100 mg PO DAILY [id number] 750 mg-644 mg- 30 mg-1 mg 1 tab PO DAILY metoprolol succinate ER 25 mg PO DAILY multivitamin 1 tab PO DAILY omega-3 fatty acids (Fish Oil Concentrate) 1,000 mg PO DAILY polyethylene glycol 3350 (Miralax) 17 grams PO DAILY HPI SAWV HPI Details 83-year-old female with hypercholesterolemia hypertension and COPD coming in for annual well visit. Colonoscopy 2013 up-to-date bone density is up-to-date June 2022 mammogram is up-to-date in October 2022. Review of the notes was in [facility] for a fall 02/13/2023 tripped on her slippers fell on to an exercise bike striking the right chest right-sided 5-8 rib fractures and physical therapy. BP elevated here but advised to monitor at home [facility] Medical History Acute meniscal tear of right knee Anemia Aortic aneurysm Arthritis Benign essential hypertension Breast cancer screening by mammogram Cataracts, bilateral COPD (chronic obstructive pulmonary disease) COVID-19 vaccine series completed Low back pain Obstructive sleep apnea Overweight (BMI 25.0-29.9) Pure hypercholesterolemia Urge incontinence Valvular heart disease Surgical History History of ankle surgery History of arthroscopy of right knee History of bladder surgery History of cholecystectomy History of urologic surgery Hx of colonoscopy Status post resection of aortic aneurysm Family History (Updated 04/10/23 @ 12:08 by Swetha Britt CMA) Father No problems noted. Mother Hypertension CVD (cardiovascular disease) Family/Other Diabetes CAD (coronary artery disease) Social History Housing: House Alcohol intake: never Patient Tobacco Use Status: Former Tobacco user Tobacco use type: Cigarette Years Smoked: stopped 52 years old e-Cigarette/Vaping Use: Never Used Second Hand Smoke Exposure: No Current occupational status: retired Cognitive needs: No Hearing needs: No Vision needs: Yes Questionnaire Medicare Wellness Checkup What is your age?: 80 or older What gender do you identify with?: female During the past 4 weeks, how much have you been bothered by emotional problems such as feeling anxious, depressed, irritable, sad or downhearted, and blue?: slightly During the past 4 weeks, has your physical & emotional health limited your social activities with family, friends, neighbors, or groups?: not at all During the past 4 weeks, how much bodily pain have you generally had?: moderate pain During the past 4 weeks, was someone available to help you if you needed & wanted help?: yes, as much as I wanted During the past 4 weeks, what was the hardest physical activity you could do for at least 2 minutes?: moderate Can you get to places out of walking distance without help? (For eg., can you travel alone on buses, taxis or drive your car?): Yes Can you go shopping for groceries or clothes without someone's help?: Yes Can you prepare your own meals?: Yes Can you do your housework without help?: Yes Because of any health problems, do you need the help of another person with your personal care needs such as eating, bathing, dressing or getting around the house?: No Can you handle your own money without help?: Yes During the past 4 weeks, how would you rate your health in general?: very good During the past 4 weeks how have things been going for you?: pretty well Are you having difficulties driving your car?: no Do you always fasten your seat belt when you are in a car?: yes, usually During past 4 weeks, have you been bothered by the following: never: Falling or dizzy when standing up, Sexual problems?, Trouble eating well? and Problems using the telephone?, seldom: Teeth or denture problems? and sometimes: Tiredness or fatigue? Have you fallen 2 or more times in the past year?: No Are you afraid of falling?: No Are you a smoker?: no During the past 4 weeks, how many drinks of wine, beer, or other alcoholic beverages did you have?: no alcohol at all Do you exercise for about 20 minutes 3 or more times a week?: yes, most of the time Have you been given information to help with the following?: yes: Keeping track of your medications? and no: Hazards in your house that might hurt you? How often do you have trouble taking medicines the way you have been told to take them?: I always take medicine as prescribed How confident are you that you can control & manage most of your health problems?: very confident What is your race?: White PHQ-9 Over the last 2 weeks, how often have you been bothered by any of the following problems? 1. Little interest or pleasure in doing things: not at all 2. Feeling down, depressed, or hopeless: not at all 3. Trouble falling or staying asleep, or sleeping too much: nearly every day 4. Feeling tired or having little energy: several days 5. Poor appetite or overeating: more than half the days 6. Feeling bad about yourself - or that you are a failure or have let yourself or your family down: not at all 7. Trouble concentrating on things, such as reading the newspaper or watching television: not at all 8. Moving or speaking so slowly that other people could have noticed. Or the opposite - being so fidgety or restless that you have been moving around a lot more than usual: not at all 9. Thoughts that you would be better off or of hurting yourself in some way: not at all Total score: 6 Depression Screening Interpretation: Positive Source: Developed by Drs. Don Dasilva, Kaitlin Logan, Joshua Platt and colleagues, with an educational jose angel from [employer]. Thrive Questionnaire Date Thrive assessed: 03/19/23 JENNIFER-7 AMB Questionnaire JENNIFER-7 Date JENNIFER - 7 assessed: 03/19/23 Source: Developed by Drs. Don Dasilva, Kaitlin Logan, Joshua Platt and colleagues, with an educational jose angel from [employer]. Review of Systems Const Denies poor appetite and Denies weakness Eyes Denies no additional complaints ENT Reports Normal hearing present, Denies dizziness, Denies nasal congestion, Denies tinnitus and Denies sore throat Card Denies chest pain, Denies syncope, Denies rapid heart rate and Denies dyspnea Resp Denies cough and Denies dyspnea GI Denies change in stool character, Reports constipation, Denies diarrhea, Denies nausea and Denies vomiting Denies urinary frequency, Denies difficulty voiding and Denies dysuria Neuro Reports Normal hearing present, Denies confusion, Denies dizziness, Denies syncope and Denies weakness Psych Denies confusion Physical Exam Vital Signs: Last Vital Signs Pulse 59 06/11/23 09:02 BP 140/80 H 06/11/23 09:02 Pulse Ox 96 06/11/23 09:02 Oxygen Delivery Method Room Air 06/11/23 09:02 Const General: No confusion Orientation/consciousness: No confusion HEENT Other: Bilateral impacted cerumen Head: Yes normocephalic Ears: external ears normal Face and sinus: Yes normal facial exam Mouth: moist mucous membranes Throat: Yes tonsils normal Eyes Conjunctivae: conjunctivae normal Pupils: Equal, round and reactive pupils present and Pupil accommodation reflex normal Direct Ophthalmoscopy: normal light reflex Neck Neck: No lymphadenopathy Thyroid: Thyroid normal Chest Chest palpation & inspection: normal inspection of the chest Resp Effort & Inspection: normal respiratory effort and no audible wheezes Auscultation: clear to auscultation bilaterally, no crackles, no wheezes and lung sounds not diminished Cardio Rate: regular rate Rhythm: regular rhythm Heart sounds: Murmur heart sound present Peripheral pulses: radial pulses present and dorsalis pedis present GI Other: Negative stools guaiac Palpation (GI): no masses Auscultation: normal bowel sounds and normoactive bowel sounds Skin General skin exam: no rashes or lesions noted Rashes: no rashes Neuro General: No confusion Cranial nerves: Yes Equal, round and reactive pupils present and Yes Normal hearing present Cognition (Neuro): normal cognition Gait exam (Neuro): Normal gait present Motor exam (neuro): 5/5 motor strength present throughout Deep tendon reflexes (DTR's): Right brachioradialis reflex intensity grade: 2+, Left brachioradialis reflex intensity grade: 2+, Right patellar reflex intensity grade: 2+ and Left patellar reflex intensity grade: 2+ Extrem General: No edema Assessment & Plan Assessment & Plan (1) Medicare annual wellness visit, subsequent: Code(s): Z00.00 - Encounter for general adult medical examination without abnormal findings (2) Multiple fractures of ribs of right side: Code(s): S22.41XA - Multiple fractures of ribs, right side, initial encounter for closed fracture Plan: Reminded on deep breathing, doing good (3) Generalized anxiety disorder: Comment: decline phone counselling Code(s): F41.1 - Generalized anxiety disorder Plan: Stable (4) Post herpetic neuralgia: Comment: Right upper back Code(s): B02.29 - Other postherpetic nervous system involvement Plan: Continue with medication for pain and gabapentin (5) Pure hypercholesterolemia: Code(s): E78.00 - Pure hypercholesterolemia, unspecified Plan: Avoid fried foods, chicken skin, eggs, butter margarine, pastries and meat. Be it pork or beef they have a lot of cholesterol atorvastatin 20 mg once a day (6) Benign essential hypertension: Code(s): I10 - Essential (primary) hypertension Plan: Continue with blood pressure medication. Decrease salt intake and exercise on metoprolol 25 mg once a day (7) Overweight (BMI 25.0-29.9): Code(s): E66.3 - Overweight Plan: Continue with diet and exercise (8) COPD (chronic obstructive pulmonary disease): Code(s): J44.9 - Chronic obstructive pulmonary disease, unspecified Qualifiers: COPD type: unspecified COPD Qualified Code(s): J44.9 - Chronic obstructive pulmonary disease, unspecified Plan: Stable (9) Impacted cerumen of both ears: Code(s): H61.23 - Impacted cerumen, bilateral Plan: Discussed about irrigation and scoop use Orders: Referrals Psychiatry Referral F41.1 - Generalized anxiety disorder Quality Reporting (2019) Depression/Bipolar (159/160/161/177) PHQ-9: Total score: 6 Coding Level of Care Code Medicare Subsequent (G0439) Diagnoses Medicare annual wellness visit, subsequent Z00.00 Multiple fractures of ribs of right side S22.41XA Generalized anxiety disorder F41.1 Post herpetic neuralgia B02.29 Pure hypercholesterolemia E78.00 Benign essential hypertension I10 Overweight (BMI 25.0-29.9) E66.3 COPD (chronic obstructive pulmonary disease) J44.9 COPD type: unspecified COPD Impacted cerumen of both ears H61.23
[2023-06-11 09:02] VITALS: BP 140/80; PULSE 59; O2SAT 96
== END 2023-06-11 10:16 | disposition home or self-care (01) ==
PROVIDERS: Visit Provider Internal Medicine
DX: Z00.00 Encounter for general adult medical examination without abnormal findings (principal); I10 Essential (primary) hypertension; J44.9 Chronic obstructive pulmonary disease, unspecified; S22.41XA Multiple fractures of ribs, right side, initial encounter for closed fracture; F41.1 Generalized anxiety disorder; B02.29 Other postherpetic nervous system involvement; E78.00 Pure hypercholesterolemia, unspecified; E66.3 Overweight; H61.23 Impacted cerumen, bilateral
CPT/HCPCS: G0439

== ENCOUNTER 2023-06-11 13:00 | Outpatient (RCR) | payer MEDICARE, SELFPAY ==
[2023-05-05 13:24] VITALS: BP 130/78
--- NOTE | 2023-05-05 15:15 | MHC.PT.EP ---
[facility] [place] Office [place] Office [place] Office [address] Darlin Leyva [address] [phone] F: [phone] F: [phone] F: [phone] F: [phone] Physical Therapy Plan of Care Date of Evaluation: Date of Surgery: Diagnosis: unspecified fall, multiple fractures of ribs, right side, gait instability Assessment: 83 y/o female referred to PT with unspecified fall, multiple rib fracture. She feels that her walking and balance have been changing for several years that worsened following getting shingles 2 years ago. Of note, she tripped and landed on an exercise bike breaking 4 R ribs 03/2023. CUrrently she reports difficulty with walking, stairs, and balance. Examination shows good LE strength, decreased HS/gastroc flexiblity, ?poor proprioception LE (not formally tested and will assess in the future), impaired static balance, impaired dynamic balance with 16/24 DGI, and impaired gait pattern. Recommend PT 2x/week for 5 weeks to address impairments, implement HEP, and optimize functional mobiltiy. Frequency and Duration: The patient will be seen 2x/week for 5 weeks Short Term Goals: 3 week Compliant with HEP Pt will be able to stand on airex for 10 seconds without LOB eyes open Assisted Goals: 5 weeks I with HEP and self management of sx Improve DGI to 20/24 to improve safety and decrease risk of falls Pt will be able to ambulate >15 minutes with good LE alignment Treatment Plan: Modalities to reduce pain, spasms and effusion. Manual therapy to restore motion and function. Therapeutic exercise to improve strength and flexibility. Neuromuscular re-education for posture and balance. Therapeutic activities to return to functional activities of daily living. Electronically signed by: Lisa Lenz PT Please sign and return to therapist. Thank you for your referral.
--- NOTE | 2023-06-11 13:52 | MHC.PT.DC ---
[facility] [place] Office [place] Office [place] Office [address] Darlin Leyva [address] [phone] F: [phone] F: [phone] F: [phone] F: [phone] Physical Therapy Discharge Report Diagnosis: unspecified fall, multiple fractures of ribs, right side, gait instability Date of Surgery: Date of Evaluation: 05/05/23 Date of Discharge: 06/11/23 Treatments to Date: 11 Cancellations to Date: 0 No Shows to Date: 0 Discharge Status: Achieved Goals Improved Function Independent with HEP Discharge Summary: 06/11/2023: Pt saw primary PT last visit and plan was to d/c today. She has made progress since the start of care and is feeling better overall. 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 At this point max benefits of skilled PT have been provided and is no longer indicated. Pt in agreement with d/c today. Electronically signed by: Mary Jane Vaughan, PT, DPT, ATC Please sign and return to therapist. Thank you for your referral.
== END 2023-06-11 13:53 | disposition home or self-care (01) ==
LOC: HO.PTCHIC 13:00
PROVIDERS: PCP Internal Medicine; Visit Provider Internal Medicine
DX: R26.81 Unsteadiness on feet (principal); S22.41XD Multiple fractures of ribs, right side, subsequent encounter for fracture with routine healing; W19.XXXD Unspecified fall, subsequent encounter
CPT/HCPCS: 97110; 97112; 97162

== ENCOUNTER 2023-06-18 13:57 | Outpatient (AMB) | payer MEDICARE, SELFPAY ==
--- NOTE | 2023-06-18 14:22 | A.OFFVIS_ITS ---
Intake Vital Signs 06/18/23 14:23 Height 5 ft 4 in BMI Reason not done Patient refused/unable BP 130/62 Blood Pressure Location Lt brachial Position Sitting Pulse 71 Intake Visit Reasons: NPV/Cardiomegaly/Po Intake Note: NPV w/ EKG Nurse Behavioral [facility] Care Required: No Accompanied by: Spouse Allergies amoxicillin [AMOXICILLIN] Allergy (Mild, Verified 06/18/23 14:26) UNKNOWN-HAPPENED IN OR 2009 milk [MILK] Allergy (Unknown, Verified 06/18/23 14:26) DIARRHEA lisinopril Adverse Reaction (Intermediate, Verified 06/18/23 14:26) hyperkalemia Medication List - Last Reconciled 06/18/23 by Pool Nguyen MD acetaminophen 325 mg PO Q6H PRN ascorbic acid (vitamin C) 1 g PO Q6H aspirin (Adult Aspirin Regimen) 81 mg PO DAILY atorvastatin 20 mg PO DAILY cholecalciferol (vitamin D3) 50 mcg PO DAILY cyanocobalamin (vitamin B-12) 100 mcg PO DAILY docusate sodium (Colace) 100 mg PO DAILY qggdjuvr-kebc-[id number]-C-suzie-bosw 750 mg-644 mg- 30 mg-1 mg 1 tab PO DAILY metoprolol succinate ER 25 mg PO DAILY multivitamin 1 tab PO DAILY omega-3 fatty acids (Fish Oil Concentrate) 1,000 mg PO DAILY polyethylene glycol 3350 (Miralax) 17 grams PO DAILY HPI HPI Comments History of Present Illness Details Kayla is here for cardiac evaluation. It seems that she has had surgery for aortic aneurysm in 2009. Per operative note, she had repair of ascending aortic aneurysm with aortic graft. 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 It seems that she was seen by Dr. Lynne from [facility] for some time but nothing recently. She herself has no cardiac complaints at all. No angina. Denies any shortness of breath or in fact anything cardiac sounding. No palpitations. She states she is somewhat active but not too much. Does things like water aerobics without any major difficulty. She is not sure why she got referred here. [facility] Medical History Acute meniscal tear of right knee Anemia Aortic aneurysm Arthritis Benign essential hypertension Breast cancer screening by mammogram Cataracts, bilateral COPD (chronic obstructive pulmonary disease) COVID-19 vaccine series completed Low back pain Obstructive sleep apnea Overweight (BMI 25.0-29.9) Pure hypercholesterolemia Urge incontinence Valvular heart disease Surgical History History of ankle surgery History of arthroscopy of right knee History of bladder surgery History of cholecystectomy History of urologic surgery Hx of colonoscopy Status post resection of aortic aneurysm Family History Father No problems noted. Mother Hypertension CVD (cardiovascular disease) Family/Other Diabetes CAD (coronary artery disease) Social History Housing: House Alcohol intake: never Patient Tobacco Use Status: Former Tobacco user Tobacco use type: Cigarette Years Smoked: stopped 52 years old e-Cigarette/Vaping Use: Never Used Second Hand Smoke Exposure: No Current occupational status: retired Cognitive needs: No Hearing needs: No Vision needs: Yes Review of Systems Const Denies weakness ENT Denies dizziness Card Denies chest pain, Denies chest pain with activity, Denies syncope, Denies rapid heart rate, Denies pedal edema, Denies edema, Denies leg edema, Denies lightheadedness, Denies palpitations, Denies dyspnea, Denies dyspnea on exertion and Denies orthopnea Resp Denies cough, Denies dyspnea and Denies dyspnea on exertion GI Denies hematochezia and Denies change in stool character Musc Denies abnormal gait, Denies muscle cramps, Denies muscle weakness, Denies numbness, Denies radiating pain into limb and Denies tingling Neuro Denies abnormal gait, Denies dizziness, Denies syncope, Denies numbness, Denies tingling and Denies weakness Endo Denies palpitations Physical Exam Vital Signs: Last Vital Signs Pulse 71 06/18/23 14:23 BP 130/62 06/18/23 14:23 Const General: comfortable and no acute distress Orientation/consciousness: patient oriented x3 HEENT Other: Unremarkable Head: Yes normal to inspection Neck Neck: Yes normal visual inspection Chest Chest palpation & inspection: normal inspection of the chest Resp Auscultation: clear to auscultation bilaterally Cardio Palpation: normal PMI Heart sounds: S1 normal heart sound present, S2 normal heart sound present, no gallops, Murmur heart sound present systolic III/ and no rubs GI Palpation (GI): Soft to palpation Back/Spine/Pelvis Other: unremarkable Skin General skin exam: no rashes or lesions noted Neuro General: patient oriented x3 Extrem General: Yes normal to inspection Psych Mental Status: mental status grossly normal Office Procedures EKG Details: Recent EKG shows sinus rhythm at 71/Min; MO prolongation to 230 millisecond; premature atrial complexes versus sinus arrhythmia; nonspecific ST-T changes. [id number], Complete Assessment & Plan Assessment & Plan (1) S/P ascending aortic aneurysm repair: Code(s): Z98.890 - Other specified postprocedural states; Z86.79 - Personal history of other diseases of the circulatory system Plan: Per operative note from 15/08, she had repair of ascending aortic aneurysm with the Hemashield aortic graft. In the recent chest CT performed for noncardiac reasons, there is dilatation of the distal ascending aorta arch and descending thoracic aorta. Distal ascending aorta/arch measures 4.5 cm. Distal aortic arch at 5 cm. Proximal descending aorta 5 cm. Distal descending aorta 4.2 cm. 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 No dissection or intramural hematoma. Will need to be referred back to Cardiac surgery at [facility] for follow-up. She may also need to be seen by vascular surgery as well. 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 Right coronary artery could not be imaged well due to anterior origin but no obvious obstructive disease. (3) Right ventricular enlargement: Code(s): I51.7 - Cardiomegaly Plan: In the recent echocardiogram, there is significant increase in right ventricular size but preserved function. There was cyjx-up-rmhndjnv tricuspid regurgitation mild pulmonary hypertension. Clinically, she does not have any overt symptoms or signs of right-sided congestive heart failure. These could possibly be related to left-sided diastolic dysfunction as she has moderate diastolic dysfunction. Diuretics as needed. (4) Diastolic dysfunction: Code(s): I51.89 - Other ill-defined heart diseases Plan: Moderate diastolic dysfunction on echocardiogram. No clinical heart failure. Continue to monitor. Could be related to hypertension. (5) Atrial arrhythmia: Code(s): I49.8 - Other specified cardiac arrhythmias Plan: Frequent supraventricular ectopy on EKG. At increased risk for atrial fibrillation as the left atrium is also enlarged. Will need monitoring in due course. Plan Discussed with who came for appointment. Coding Level of Care Code New Pt Level 4 (79151) Diagnoses S/P ascending aortic aneurysm repair Z98.890; Z86.79 Anomalous coronary artery origin Q24.5 Right ventricular enlargement I51.7 Diastolic dysfunction I51.89 Atrial arrhythmia I49.8 CPT Codes EKG - CPT: 75402-[id number], Complete ([id number])
[2023-06-18 14:23] VITALS: BP 130/62; PULSE 71
== END 2023-06-18 14:49 | disposition home or self-care (01) ==
PROVIDERS: PCP Internal Medicine; Referring Provider Internal Medicine; Visit Provider Internal Medicine
DX: Q24.5 Malformation of coronary vessels (principal); I51.7 Cardiomegaly; Z98.890 Other specified postprocedural states; Z86.79 Personal history of other diseases of the circulatory system; I51.89 Other ill-defined heart diseases; I49.8 Other specified cardiac arrhythmias
CPT/HCPCS: 93010; 99204

== ENCOUNTER → 2023-06-18 13:57 | Outpatient (BNVA) | payer MEDICARE, SELFPAY | PROVIDERS: PCP Internal Medicine; Referring Provider Internal Medicine; Visit Provider Internal Medicine | DX: I51.7 Cardiomegaly (principal); I51.89 Other ill-defined heart diseases; I49.8 Other specified cardiac arrhythmias; Q24.5 Malformation of coronary vessels; Z98.890 Other specified postprocedural states | CPT/HCPCS: 93005; 99202 ==

== ENCOUNTER 2023-06-28 19:56 | Emergency (ER) | payer MEDICARE, SELFPAY ==
--- NOTE | ~2023-06-28 | CT_ITS ---
EXAMINATION: CT HEAD WITHOUT CONTRAST CLINICAL INFORMATION: Fall on ASA COMPARISON: 03/30/2023 TECHNIQUE: Contiguous axial imaging was performed from the skull base to vertex without intravenous administration of contrast. This CT examination was performed using dose optimization techniques as appropriate, variously including the following: *Automated exposure control *Adjustment of mA and/or kV according to patient size (this includes techniques or standardized protocols for targeted exams where dose is matched to indication/reason for exam; i.e. extremities or head) *Use of iterative reconstruction technique DLP: 679 mGy-cm FINDINGS: There is no evidence of acute intracranial hemorrhage or territorial infarction. No abnormal mass-effect or midline shift is seen. Farrar to white matter differentiation is well preserved. No extra-axial fluid collections are identified. The ventricles are normal in size. There is mild periventricular white matter hypoattenuation consistent with chronic small vessel ischemic disease. The osseous structures and soft tissues are normal. The mastoid air cells and visualized portions of the paranasal sinuses are well-aerated. CT/CT head/brain wo IV con IMPRESSION: No acute intracranial pathology.
[2023-06-28 19:59] VITALS: BP 148/78; PULSE 76; O2SAT 96
[2023-06-28 20:01] VITALS: BP 148/98; PULSE 73; RESP 19; TEMP 36.7; O2SAT 95; BMI 34.6
[2023-06-28 21:02] LABS: MANUAL DIFF FLAG NO
[2023-06-28 21:19] LABS: Alanine Aminotransferase 20 U/L (0-31); Albumin Level 4.5 g/dL (3.5-5.0); Alkaline Phosphatase 66 U/L (39-117); Anion Gap 14 (12-20); Aspartate Amino Transferase 25 U/L (5-31); Basophils Percent Auto 0.4 % (0-2); Bilirubin Total 0.5 mg/dL (0.0-1.0); Blood Urea Nitrogen 22 mg/dL (9-16); Calcium 9.9 mg/dL (8.4-10.2); Carbon Dioxide 26 mmol/L (22-29); Chloride 107 mmol/L (96-108); Creatinine Clr Calc Pharmacy 59.8; Eosinophils Absolute Auto 0.2 X10*3/uL (0.0-0.4); Eosinophils Percent Auto 1.7 % (0-4); Estimated Glomerular Filt Rate > 60; Glucose Random 115 mg/dL (60-115); Hematocrit 38.4 % (37.0-47.0); Hemoglobin 13.7 g/dl (12.0-16.0); Imm Gran Abs Auto 0.03 X10*3/uL (0.00-0.03); Imm Gran Pct Auto 0.3 % (0.0-0.4); Lymphocytes Percent Auto 19.9 % (20-40); Mean Corpuscular HGB Conc 35.7 g/dl (31.0-35.0); Mean Corpuscular Hemoglobin 32.9 pg (27.0-33.0); Mean Corpuscular Volume 92.3 fL (80.0-98.0); Mean Platelet Volume 9.9 fL (9.4-12.3); Monocytes Percent Auto 9.8 % (2-11); Neutrophils Absolute Auto 6.9 x10*3/uL (2.0-8.3); Neutrophils Percent Auto 67.9 % (45-73); Platelet Count 192 X10*3/uL (160-400); Potassium 4.1 mmol/L (3.3-5.1); Red Blood Count 4.16 X10*6/uL (4.20-5.50); Red Cell Distribution Width 12.6 % (11.0-16.0); Sodium 143 mmol/L (135-145); White Blood Count 10.2 X10*3/uL (4.8-10.8)
[2023-06-28 21:20] LABS: Appearance Urine Clear; Color Urine Yellow; Glucose Urine UA Negative (Negative); Leukocyte Esterase Urine Trace (Negative); Nitrite Urine Positive (Negative); PH 5.5 (5.0-9.0); UMIC TRIGGER UACC YES; Urine Blood Negative (Negative); Urine Ketones Negative (Negative); Urine Protein Negative (Neg-Trace)
--- NOTE | 2023-06-28 21:25 | ED.FALL ---
HPI - Fall General Chief Complaint: Fall Stated Complaint: Fall w/headstrike, no thinners, no LOC Time Seen by Provider: 06/28/23 20:29 Source: patient and family Mode of arrival: EMS History of Present Illness HPI Narrative: 83-year-old female who is brought in by EMS after she sustained a mechanical fall where she became imbalanced while caring a box of items up 1 step, got off balance and fell backwards landing on her bottom and then striking the back of her head without loss of consciousness. Patient only takes 81 mg of aspirin a day and is alert and oriented at this time. Related Data Home Medications Medication Instructions Recorded Confirmed aspirin 81 mg tablet,delayed 81 mg PO DAILY 09/25/20 06/18/23 release (Adult Aspirin Regimen) cholecalciferol (vitamin D3) 50 50 mcg PO DAILY 09/25/20 06/18/23 mcg (2,000 unit) capsule cyanocobalamin (vitamin B-12) 50 100 mcg PO DAILY 09/25/20 06/18/23 mcg lozenges docusate sodium 100 mg capsule 100 mg PO DAILY 09/25/20 06/18/23 (Colace) glucosamine 750 qu-bbgjsznfbyl-rni 1 tab PO DAILY 09/25/20 06/18/23 no1 644 mg-C 30 mg-suzie 1 mg tablet omega-3 fatty acids 1,000 mg 1,000 mg PO DAILY 09/25/20 06/18/23 capsule (Fish Oil Concentrate) polyethylene glycol 3350 17 17 g PO DAILY 09/25/20 06/18/23 gram/dose oral powder (Miralax) multivitamin 1 tab PO DAILY 07/23/21 06/18/23 acetaminophen 325 mg tablet 325 mg PO Q6H PRN 04/10/23 06/18/23 ascorbic acid (vitamin C) 1,000 mg 1 g PO Q6H 04/10/23 06/18/23 tablet Previous Rx's Medication Instructions Recorded atorvastatin 20 mg tablet 20 mg PO DAILY #90 tabs 05/06/23 metoprolol succinate 25 mg 25 mg PO DAILY #90 tabs 05/06/23 tablet,extended release 24 hr cefdinir 300 mg capsule 300 mg PO BID 5 days #10 caps 06/28/23 Allergies Allergy/AdvReac Type Severity Reaction Status Date / Time amoxicillin [AMOXICILLIN] Allergy Mild UNKNOWN-HAPPENED Verified 06/28/23 20:06 IN OR 2010 milk [MILK] Allergy Unknown DIARRHEA Verified 06/28/23 20:06 lisinopril AdvReac Intermediate hyperkalemi Verified 06/28/23 20:06 a Review of Systems Review of Systems: Pertinent positives and negatives as stated in [facility] Past Medical History Source: nursing notes reviewed Medical History Acute meniscal tear of right knee Anemia Aortic aneurysm Arthritis Benign essential hypertension Breast cancer screening by mammogram Cataracts, bilateral COPD (chronic obstructive pulmonary disease) COVID-19 vaccine series completed Low back pain Obstructive sleep apnea Overweight (BMI 25.0-29.9) Pure hypercholesterolemia Urge incontinence Valvular heart disease Surgical History History of ankle surgery History of arthroscopy of right knee History of bladder surgery History of cholecystectomy History of urologic surgery Hx of colonoscopy Status post resection of aortic aneurysm Family History Family History Father No problems noted. Mother Hypertension CVD (cardiovascular disease) Family/Other Diabetes CAD (coronary artery disease) Social History Social History Housing: House Alcohol intake: never Patient Tobacco Use Status: Former Tobacco user Tobacco use type: Cigarette Years Smoked: stopped 52 years old Smoked in Last 30 Days: No e-Cigarette/Vaping Use: Never Used Second Hand Smoke Exposure: No Use of substances other than those prescribed or required for medical reasons: No Advance Directives: No Advance Directives Information Provided: No Current occupational status: retired Cognitive needs: No Hearing needs: No Vision needs: Yes Physical Exam Vital Signs: Vital Signs: Last Vital Signs Temp 98.4 F 06/28/23 22:00 Pulse 79 06/28/23 22:00 Resp 16 06/28/23 22:00 BP 137/64 06/28/23 22:00 Pulse Ox 98 06/28/23 22:00 O2 Del Method Room Air 06/28/23 22:00 BMI result Body Mass Index 34.6 VITAL SIGNS: Reviewed. GENERAL: Well developed, well nourished, in no acute distress. HEAD: Normocephalic/small contusion to left upper occipital without laceration or abrasion EYES: PERRLA, EOMI EARS: Ext canals without abnormality NOSE: Nares patent bilateral OROPHARYNX: no oral lesions noted, posterior pharynx clear NECK: Supple, no adenopathy, no midline cervical spine tenderness or step-offs noted LUNGS: Normal breath sounds. No adventitious sounds or accessory muscle use. SpO2<95> CARDIOVASCULAR: Regular rate and rhythm without noted murmurs ABDOMEN: Soft, non-tender, non-distended with bowel sounds. MUSCULOSKELETAL: No tenderness, deformities, or effusions noted on gross inspection. EXTREMITIES: No cyanosis, clubbing or edema. SKIN: Inspection of the skin reveals no rashes NEUROLOGIC: Alert and oriented x 4. Strength and sensation to light touch were grossly intact x 4. Medications Administered Discontinued Medications Generic Name Dose Route Start Last Admin Trade Name Freq PRN Reason Stop Dose Admin Nitrofurantoin Macrocrystals 100 mg 06/28/23 21:24 06/28/23 21:57 Nitrofurantoin Monohyd/M-Cryst 100 Mg Capsule PO 06/28/23 21:25 100 mg ONCE ONE Administration Medical Decision Making Medical Decision Making [facility] Narrative: 83-year-old female with history and clinical presentation, DDX: Intracranial hemorrhage, infection/anemia/electrolyte abnormalities. I reviewed all investigations and that hematologic indices are grossly within normal limits without leukocytosis or left shift, no thrombocytopenia or anemia. Chemistry indices are grossly within normal limits without electrolyte or liver enzyme abnormalities and there is no CHRIS. Urinalysis is significant for a urinary tract infection, initial antibiotics given here in the emergency room and then patient discharged on remaining course. CT scan negative for intracranial hemorrhage and otherwise my interpretation is in agreement with radiology's impression, all results and findings discussed with patient at bedside and she is otherwise discharged home. Differential Diagnosis Differential Diagnoses: The differential diagnosis associated with the presentation includes Please see the discussion above Admission/Observation Consideration of admission/observation: Escalation of care including admission/observation considered Please see the discussion above Lab Data [facility] Lab Attestation statement: I reviewed the patient's lab results. Please see the discussion above 06/28/23 20:47 06/28/23 20:47 Labs: Lab Results 06/28/23 06/28/23 06/28/23 Range/Units 20:47 20:47 20:47 WBC 10.2 (4.8-10.8) X10*3/uL RBC 4.16 L (4.20-5.50) X10*6/uL Hgb 13.7 (12.0-16.0) g/dl Hct 38.4 (37.0-47.0) % MCV 92.3 (80.0-98.0) fL MCH 32.9 (27.0-33.0) pg MCHC 35.7 H (31.0-35.0) g/dl RDW 12.6 (11.0-16.0) % Plt Count 192 (160-400) X10*3/uL MPV 9.9 (9.4-12.3) fL Immature Gran % (Auto) 0.3 (0.0-0.4) % Neut % (Auto) 67.9 (45-73) % Lymph % (Auto) 19.9 L (20-40) % [place] % (Auto) 9.8 (2-11) % Eos % (Auto) 1.7 (0-4) % Baso % (Auto) 0.4 (0-2) % Lymph # (Auto) 2.0 (1.2-4.9) X10*3/uL [place] # (Auto) 1.0 (0.1-1.2) X10*3/uL Eos # (Auto) 0.2 (0.0-0.4) X10*3/uL Baso # (Auto) 0.0 (0.0-0.2) X10*3/uL Abs Immat Gran (auto) 0.03 (0.00-0.03) X10*3/uL Absolute Neuts (auto) 6.9 (2.0-8.3) x10*3/uL Absolute Nucleated RBC 0.000 (0.0-0.012) X10*3/uL Nucleated RBC % (auto) 0.0 (0.0-0.2) /100WBC Sodium 143 (135-145) mmol/L Potassium 4.1 (3.3-5.1) mmol/L Chloride 107 (96-108) mmol/L Carbon Dioxide 26 (22-29) mmol/L Anion Gap 14 (12-20) BUN 22 H (9-16) mg/dL Creatinine 0.75 (0.5-1.4) mg/dL Estim Creat Clear Calc 59.8 Estimated GFR > 60 Random Glucose 115 (60-115) mg/dL Calcium 9.9 (8.4-10.2) mg/dL Total Bilirubin 0.5 (0.0-1.0) mg/dL AST 25 (5-31) U/L ALT 20 (0-31) U/L Alkaline Phosphatase 66 (39-117) U/L Total Protein 8.0 (6.5-8.0) g/dL Albumin 4.5 (3.5-5.0) g/dL Urine Color Yellow Urine Appearance Clear Urine pH 5.5 (5.0-9.0) Ur Specific [place] 1.010 (1.005-1.025) Urine Protein Negative (Neg-Trace) mg/dL Urine Glucose (UA) Negative (Negative) mg/dL Urine Ketones Negative (Negative) mg/dL Urine Blood Negative (Negative) Urine Nitrite Positive H (Negative) Ur Leukocyte Esterase Trace H (Negative) Urine RBC 11-20 H (0-2) /HPF Urine WBC 0-5 (0-5) /HPF Ur Squamous Epith Cells 0-2 (0-2) /HPF Urine Bacteria 3+ (None Seen) Hyaline Casts 0-2 (0-2) /LPF Radiology Impression Discussion of test interpretation with radiology: I have reviewed the radiologist's reading. Radiologist Impression: Please see the discussion above External Record Review External record reviewed: Outpatient record, Prior outpatient labs and Prior outpatient radiology Chronic Conditions Patient?s care impacted by: Hypertension Discharge Plan Discharge Clinical Impression: Fall, Acute UTI Patient Disposition: Home, Self-Care Instructions: Fall Prevention for Older Adults (ED), Urinary Tract Infection in Older Adults (ED) Additional Instructions: 1. Resume all home medications as prescribed. 2. Complete the entire course of antibiotics as ordered. 3. Please follow-up with your primary care provider next 2-3 days. Return to the ER for any worsening symptoms. Prescriptions: New cefdinir 300 mg capsule 300 mg PO BID 5 Days Qty: 10 0RF No Action metoprolol succinate 25 mg tablet extended release 24 hr 25 mg PO DAILY Qty: 90 2RF atorvastatin 20 mg tablet 20 mg PO DAILY Qty: 90 3RF aspirin [Adult Aspirin Regimen] 81 mg tablet,delayed release (DR/EC) 81 mg PO DAILY cholecalciferol (vitamin D3) 50 mcg (2,000 unit) capsule 50 mcg PO DAILY docusate sodium [Colace] 100 mg capsule 100 mg PO DAILY [id number]-ghvb-qcb3-C-suzie-bosw 750 mg-644 mg- 30 mg-1 mg tablet 1 tab PO DAILY Rx Instructions: give with meal/snack cyanocobalamin (vitamin B-12) 50 mcg lozenge 100 mcg PO DAILY omega-3 fatty acids [Fish Oil Concentrate] 1,000 mg capsule 1,000 mg PO DAILY polyethylene glycol 3350 [Miralax] 17 gram/dose powder 17 g PO DAILY multivitamin Tablet 1 tab PO DAILY acetaminophen 325 mg tablet 325 mg PO Q6H PRN ascorbic acid (vitamin C) 1,000 mg tablet 1 g PO Q6H Referrals: Po,Gabriella Zhu MD [Primary Care Provider] -
[2023-06-28 21:33] LABS: Bacteria Urine 3+ (None Seen); Hyaline Casts Urine 0-2 /LPF (0-2); Squamous Epithelial Cell Urine 0-2 /HPF (0-2); UACC Culture Trigger YES; WBC Urine 0-5 /HPF (0-5)
[2023-06-28] MEDS: Nitrofurantoin Monohyd/M-Cryst 100 MG CAPSULE PO (21:57)
[2023-06-28 22:00] VITALS: BP 137/64; PULSE 79; RESP 16; TEMP 36.9; O2SAT 98
--- NOTE | 2023-06-28 22:06 | MHC.EDTECH ---
2200 rounding done ,vitals sign taken,pt was assisted to walk to bathroom and back to bed .
== END 2023-06-28 22:46 | disposition home or self-care (01) ==
PROVIDERS: Emergency Provider Student in an Organized Health Care Education/Training Program; PCP Internal Medicine
DX: S00.83XA Contusion of other part of head, initial encounter (principal); W10.8XXA Fall (on) (from) other stairs and steps, initial encounter; N39.0 Urinary tract infection, site not specified; B96.20 Unspecified Escherichia coli [E. coli] as the cause of diseases classified elsewhere; B95.4 Other streptococcus as the cause of diseases classified elsewhere; Y93.89 Activity, other specified; Z79.82 Long term (current) use of aspirin; Y92.038 Other place in apartment as the place of occurrence of the external cause; Y99.9 Unspecified external cause status
CPT/HCPCS: 36415; 70450; 80053; 81001; 85025; 87086; 87186; 99284

== ENCOUNTER 2023-07-08 12:12 | Outpatient (REF) | payer MEDICARE, SELFPAY ==
[2023-07-08 14:19] LABS: Appearance Urine Clear; Color Urine Yellow; Glucose Urine UA Negative (Negative); Leukocyte Esterase Urine Moderate (2+) (Negative); Nitrite Urine Positive (Negative); UMIC TRIGGER UA YES; Urine Blood Negative (Negative); Urine Ketones Negative (Negative); Urine Protein Negative (Neg-Trace)
[2023-07-08 14:23] LABS: Bacteria Urine 4+ (None Seen); Hyaline Casts Urine 0-2 /LPF (0-2); RBC Urine 0-2 /HPF (0-2); Squamous Epithelial Cell Urine 0-2 /HPF (0-2); WBC Urine 21-50 /HPF (0-5)
== END 2023-07-08 12:13 | disposition home or self-care (01) ==
LOC: HO.LAB 12:12
PROVIDERS: PCP Internal Medicine; Visit Provider Internal Medicine
DX: R30.0 Dysuria (principal)
CPT/HCPCS: 81001

== ENCOUNTER 2023-07-16 09:38 | Outpatient (REF) | payer MEDICARE, SELFPAY ==
[2023-07-16 10:43] LABS: Appearance Urine Clear; Color Urine Yellow; Glucose Urine UA Negative (Negative); Leukocyte Esterase Urine Moderate (2+) (Negative); Nitrite Urine Negative (Negative); PH 6.5 (5.0-9.0); Specific Gravity - Urine <= 1.005 (1.005-1.025); UMIC TRIGGER UA YES; Urine Blood Negative (Negative); Urine Ketones Negative (Negative); Urine Protein Negative (Neg-Trace)
[2023-07-16 10:46] LABS: Bacteria Urine 4+ (None Seen); Hyaline Casts Urine 0-2 /LPF (0-2); RBC Urine 0-2 /HPF (0-2); Squamous Epithelial Cell Urine 0-2 /HPF (0-2)
== END 2023-07-16 09:39 | disposition home or self-care (01) ==
LOC: HO.LAB 09:38
PROVIDERS: PCP Internal Medicine; Visit Provider Internal Medicine
DX: R30.0 Dysuria (principal)
CPT/HCPCS: 81001

== ENCOUNTER 2023-09-04 13:41 | Outpatient (REF) | payer MEDICARE, SELFPAY | END 2023-09-04 13:42 | disposition home or self-care (01) | LOC: HO.LAB 13:41 | PROVIDERS: PCP Internal Medicine; Visit Provider Internal Medicine | DX: Z13.89 Encounter for screening for other disorder (principal) ==

== ENCOUNTER 2023-09-11 13:48 | Outpatient (AMB) | payer MEDICARE, SELFPAY ==
[2023-09-11 13:50] VITALS: BP 134/68; PULSE 85
--- NOTE | 2023-09-11 13:50 | A.OFFVIS_ITS ---
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 Accompanied by: Self / Same As Patient Allergies amoxicillin [AMOXICILLIN] Allergy (Mild, Verified 09/11/23 13:52) UNKNOWN-HAPPENED IN OR 2009 milk [MILK] Allergy (Unknown, Verified 09/11/23 13:52) DIARRHEA lisinopril Adverse Reaction (Intermediate, Verified 09/11/23 13:52) hyperkalemia Medication List - Last Reconciled 09/11/23 by Pool Nguyen MD acetaminophen 325 mg PO Q6H PRN ascorbic acid (vitamin C) 1,000 mg PO Q6H aspirin (Adult Aspirin Regimen) 81 mg PO DAILY atorvastatin 20 mg PO DAILY cholecalciferol (vitamin D3) 50 mcg PO DAILY cyanocobalamin (vitamin B-12) 100 mcg PO DAILY docusate sodium (Colace) 100 mg PO DAILY [id number]-C-suzie-bosw 750 mg-644 mg- 30 mg-1 mg 1 tab PO DAILY metoprolol succinate ER 25 mg PO DAILY multivitamin 1 tab PO DAILY polyethylene glycol 3350 (Miralax) 17 grams PO DAILY sulfamethoxazole-trimethoprim 800-160 mg (Bactrim DS) 1 tab PO BID HPI HPI Comments History of Present Illness Details Kayla returns for follow-up. To recall, she had surgery for aortic aneurysm in 2009. Per operative note, she had repair of ascending aortic aneurysm with aortic graft. 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 It seems that she was seen by Dr. Lynne from [facility] for some time but nothing recently. She herself has no cardiac complaints at all. No angina. Denies any shortness of breath or in fact anything cardiac sounding. No palpitations. She states she is somewhat active but not too much. Does things like water aerobics without any major difficulty. After she was seen, we referred to Cardiac surgery and she was seen by Dr. Mosquera. No interventions planned. Just follow-up by CT scans. [facility] Medical History (Updated 07/16/23 @ 08:50 by Gabriella Diggs MD) Dysuria Breast cancer screening by mammogram Low back pain Arthritis COVID-19 vaccine series completed Pure hypercholesterolemia Benign essential hypertension Cataracts, bilateral Acute meniscal tear of right knee Urge incontinence Overweight (BMI 25.0-29.9) Aortic aneurysm COPD (chronic obstructive pulmonary disease) Valvular heart disease Obstructive sleep apnea Anemia Surgical History Hx of colonoscopy History of urologic surgery History of bladder surgery History of arthroscopy of right knee History of ankle surgery Status post resection of aortic aneurysm History of cholecystectomy Family History Father No problems noted. Mother Hypertension CVD (cardiovascular disease) Family/Other Diabetes CAD (coronary artery disease) Social History Housing: House Alcohol intake: never Patient Tobacco Use Status: Former Tobacco user Tobacco use type: Cigarette Years Smoked: stopped 52 years old e-Cigarette/Vaping Use: Never Used Second Hand Smoke Exposure: No Current occupational status: retired Cognitive needs: No Hearing needs: No Vision needs: Yes Review of Systems Const Denies weakness ENT Denies dizziness Card Denies chest pain, Denies chest pain with activity, Denies syncope, Denies rapid heart rate, Denies pedal edema, Denies edema, Denies leg edema, Denies lightheadedness, Denies palpitations, Denies dyspnea, Denies dyspnea on exertion and Denies orthopnea Resp Denies cough, Denies dyspnea and Denies dyspnea on exertion GI Denies hematochezia and Denies change in stool character Musc Denies abnormal gait, Denies muscle cramps, Denies muscle weakness, Denies numbness, Denies radiating pain into limb and Denies tingling Neuro Denies abnormal gait, Denies dizziness, Denies syncope, Denies numbness, Denies tingling and Denies weakness Endo Denies palpitations Physical Exam Vital Signs: Last Vital Signs Pulse 85 09/11/23 13:50 BP 134/68 09/11/23 13:50 Const General: comfortable and no acute distress Orientation/consciousness: patient oriented x3 HEENT Other: Unremarkable Head: Yes normal to inspection Neck Neck: Yes normal visual inspection Chest Chest palpation & inspection: normal inspection of the chest Resp Auscultation: clear to auscultation bilaterally Cardio Palpation: normal PMI Heart sounds: S1 normal heart sound present, S2 normal heart sound present, no gallops, Murmur heart sound present systolic II/ and at the right sternal border and no rubs GI Palpation (GI): Soft to palpation Back/Spine/Pelvis Other: unremarkable Skin General skin exam: no rashes or lesions noted Neuro General: patient oriented x3 Extrem General: Yes normal to inspection Psych Mental Status: mental status grossly normal Assessment & Plan Assessment & Plan (1) S/P ascending aortic aneurysm repair: Code(s): Z98.890 - Other specified postprocedural states; Z86.79 - Personal history of other diseases of the circulatory system Plan: Per operative note from 2010, she had repair of ascending aortic aneurysm with Hemashield aortic graft. In the recent chest CT performed for noncardiac reasons, there is dilatation of the distal ascending aorta arch and descending thoracic aorta. Distal ascending aorta/arch measures 4.5 cm. Distal aortic arch at 5 cm. Proximal descending aorta 5 cm. Distal descending aorta 4.2 cm. 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 No dissection or intramural hematoma. She has been seen by cardiac surgery in follow-up and they would like to use follow-up on her in [address] scan. 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 Right coronary artery could not be imaged well due to anterior origin but no obvious obstructive disease. Clinically, she has got absolutely no symptoms at this time. (3) Right ventricular enlargement: Code(s): I51.7 - Cardiomegaly Plan: In the recent echocardiogram, there is significant increase in right ventricular size but preserved function. There was [id number] tricuspid regurgitation mild pulmonary hypertension. Clinically, she does not have any overt symptoms or signs of right-sided congestive heart failure. These could possibly be related to left-sided diastolic dysfunction as she has moderate diastolic dysfunction. Diuretics as needed. (4) Diastolic dysfunction: Code(s): I51.89 - Other ill-defined heart diseases Plan: Moderate diastolic dysfunction on echocardiogram. No clinical heart failure. Could be related to hypertension. (5) Atrial arrhythmia: Code(s): I49.8 - Other specified cardiac arrhythmias Plan: Frequent supraventricular ectopy on EKG. At increased risk for atrial fibrillation as the left atrium is also enlarged. Will need monitoring in due course. (6) Benign essential hypertension: Code(s): I10 - Essential (primary) hypertension Plan: Borderline blood pressures. We can go up on the beta-adrián dosing. Discussed. Orders: Orders 2 CA echo transthoracic complete 51 Weeks I51.7 - Cardiomegaly, I51.89 - Other ill-defined heart diseases, Z86.79 - Personal history of other diseases of the circulatory system, Z98.890 - Other specified postprocedural states Medications: New metoprolol succinate ER (Toprol XL) 50 mg PO DAILY 90 tabs 3RF Changed From sulfamethoxazole-trimethoprim 800-160 mg (Bactrim DS) 1 tab PO BID 14 tabs 0RF To sulfamethoxazole-trimethoprim 800-160 mg (Bactrim DS) 1 tab PO BID Discontinued metoprolol succinate ER Discontinued Reason: Doctor's Order 25 mg PO DAILY 90 tabs 2RF I10 - Essential (primary) hypertension Coding Level of Care Code Est Pt Level 4 (46049) Diagnoses S/P ascending aortic aneurysm repair Z98.890; Z86.79 Anomalous coronary artery origin Q24.5 Right ventricular enlargement I51.7 Diastolic dysfunction I51.89 Atrial arrhythmia I49.8 Benign essential hypertension I10
== END 2023-09-11 14:06 | disposition home or self-care (01) ==
PROVIDERS: PCP Internal Medicine; Visit Provider Internal Medicine
DX: Z98.890 Other specified postprocedural states (principal); Z86.79 Personal history of other diseases of the circulatory system; Q24.5 Malformation of coronary vessels; I51.7 Cardiomegaly; I51.89 Other ill-defined heart diseases; I49.8 Other specified cardiac arrhythmias; I10 Essential (primary) hypertension
CPT/HCPCS: 99214

== ENCOUNTER → 2023-09-11 13:48 | Outpatient (BNVA) | payer MEDICARE, SELFPAY | PROVIDERS: PCP Internal Medicine; Visit Provider Internal Medicine | DX: I51.7 Cardiomegaly (principal); I51.89 Other ill-defined heart diseases; I49.8 Other specified cardiac arrhythmias; I10 Essential (primary) hypertension; Q24.5 Malformation of coronary vessels; Z98.890 Other specified postprocedural states; Z86.79 Personal history of other diseases of the circulatory system | CPT/HCPCS: 99212 ==

== ENCOUNTER 2023-09-23 12:44 | Outpatient (AMB) | payer MEDICARE, SELFPAY ==
[2023-09-23 12:47] VITALS: BP 140/70; PULSE 66; O2SAT 98
--- NOTE | 2023-09-23 12:47 | A.OFFPC_ITS ---
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 Accompanied by: Self / Same As Patient Allergies amoxicillin [AMOXICILLIN] Allergy (Mild, Verified 09/23/23 12:47) UNKNOWN-HAPPENED IN OR 2009 milk [MILK] Allergy (Unknown, Verified 09/23/23 12:47) DIARRHEA lisinopril Adverse Reaction (Intermediate, Verified 09/23/23 12:47) hyperkalemia Medication List - Last Reconciled 09/23/23 by Gabriella Diggs MD acetaminophen 325 mg PO Q6H PRN ascorbic acid (vitamin C) 1,000 mg PO Q6H aspirin (Adult Aspirin Regimen) 81 mg PO DAILY atorvastatin 20 mg PO DAILY cholecalciferol (vitamin D3) 50 mcg PO DAILY cyanocobalamin (vitamin B-12) 100 mcg PO DAILY docusate sodium (Colace) 100 mg PO DAILY uooslbze-qcpd-klq2-C-suzie-bosw 750 mg-644 mg- 30 mg-1 mg 1 tab PO DAILY metoprolol succinate ER (Toprol XL) 50 mg PO DAILY multivitamin 1 tab PO DAILY polyethylene glycol 3350 (Miralax) 17 grams PO DAILY Tobacco use date assessed: 03/19/23 Fall risk assessment: No Falls in past year Last assessed Fall Risk: 09/23/23 Dental Screening Dental Screen Date: 09/23/23 Did you have a dental visit in the last 12 months?: Yes Did you have a dental problem in the last 6 months where you did not have access to dental care?: No Was dental information given to patient?: Patient has dentist HPI FABIOLA, HTN HPI Details 83-year-old overweight female with a his tory of generalized anxiety disorder post herpetic neuralgia hypercholesterolemia hypertension COPD coming in for follow-up. Last seen in May 2023 for annual wellness has had multiple fractures of the ribs on the right side. Patient's colonoscopy is up-to-date mammograms up-to-date. Review of the notes September 11 was seen by Cardiology aortic aneurysm surgery 2009 repair with aortic graft patient had a recent CT of the chest showing dilatation of the distal ascending aorta and descending thoracic aorta. 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 Patient has seen the thoracic surgeon also for follow- up continue to monitor. Echo in May done with ejection fraction of 60 65%. for the recurrent UTI - estrogen cream rx ans another pill. L hip pain , deny fall decline any new workup ON LICENSE OF [facility] Medical History (Updated 07/16/23 @ 08:50 by Gabriella Diggs MD) Dysuria Breast cancer screening by mammogram Low back pain Arthritis COVID-19 vaccine series completed Pure hypercholesterolemia Benign essential hypertension Cataracts, bilateral Acute meniscal tear of right knee Urge incontinence Overweight (BMI 25.0-29.9) Aortic aneurysm COPD (chronic obstructive pulmonary disease) Valvular heart disease Obstructive sleep apnea Anemia Surgical History Hx of colonoscopy History of urologic surgery History of bladder surgery History of arthroscopy of right knee History of ankle surgery Status post resection of aortic aneurysm History of cholecystectomy Family History Father No problems noted. Mother Hypertension CVD (cardiovascular disease) Family/Other Diabetes CAD (coronary artery disease) Social History Housing: House Alcohol intake: never Patient Tobacco Use Status: Former Tobacco user Tobacco use type: Cigarette Years Smoked: stopped 52 years old e-Cigarette/Vaping Use: Never Used Second Hand Smoke Exposure: No Current occupational status: retired Cognitive needs: No Hearing needs: No Vision needs: Yes Questionnaire Thrive Questionnaire Date Thrive assessed: 03/19/23 JENNIFER-7 AMB Questionnaire JENNIFER-7 Date JENNIFER - 7 assessed: 03/19/23 Source: Developed by Drs. Don Dasilva, Kaitlin Logan, Joshua walden nd colleagues, with an educational jose angel from [employer]. Physical exam (Primary Care) Vital Signs: Last Vital Signs Pulse 66 09/23/23 12:47 BP 140/70 H 09/23/23 12:47 Pulse Ox 98 09/23/23 12:47 Oxygen Delivery Method Room Air 09/23/23 12:47 Tobacco/Smoking Status: Tobacco use Status Tobacco use date assessed 03/19/23 09/23/23 12:53 Patient Tobacco Use Status Former Tobacco user 09/23/23 12:53 Tobacco use type Cigarette 09/23/23 12:53 e-Cigarette/Vaping Use Never Used 09/23/23 12:53 Thrive Assessment: Date of Thrive Assessment Date Thrive assessed 03/19/23 09/23/23 12:53 Const General: alert; No acute distress Eyes Conjunctivae: conjunctivae normal Resp Auscultation: clear to auscultation bilaterally Cardio Rate: regular rate Rhythm: regular rhythm GI Inspection: Yes normal to inspection Extrem General: Yes normal to inspection and No edema Assessment and Plan Assessment & Plan (1) COPD (chronic obstructive pulmonary disease): Code(s): J44.9 - Chronic obstructive pulmonary disease, unspecified Qualifiers: COPD type: unspecified COPD Qualified Code(s): J44.9 - Chronic obstructive pulmonary disease, unspecified Plan: Stable (2) Benign essential hypertension: Code(s): I10 - Essential (primary) hypertension Plan: Continue with blood pressure medication. Decrease salt intake and exercise patient is on metoprolol 50 mg once a day (3) Pure hypercholesterolemia: Code(s): E78.00 - Pure hypercholesterolemia, unspecified Plan: Avoid fried foods, chicken skin, eggs, butter margarine, pastries and meat. Be it pork or beef they have a lot of cholesterol LDL goal of less than 100 and triglyceride of less than 150 patient is on atorvastatin 20 mg once a day (4) Generalized anxiety disorder: Comment: decline phone counselling Code(s): F41.1 - Generalized anxiety disorder Plan: Stable (5) S/P ascending aortic aneurysm repair: Code(s): Z98.890 - Other specified postprocedural states; Z86.79 - Personal history of ot her diseases of the circulatory system Plan: Patient is being followed up by the thoracic surgeon as well as Cardiology. Will have to monitor Orders: Orders Comprehensive Met. Panel 6 Months I10 - Essential (primary) hypertension Lipid Panel 6 Months E78.00 - Pure hypercholesterolemia, unspecified, I10 - Essential (primary) hypertension Vitamin B12 and Folate 6 Months I10 - Essential (primary) hypertension Vitamin D 25-OH Total 6 Months I10 - Essential (primary) hypertension Free T4 (Free Thyroxine) 6 Months I10 - Essential (primary) hypertension Complete Blood Count Auto Diff 6 Months I10 - Essential (primary) hypertension Thyroid Stimulating Hormone 6 Months I10 - Essential (primary) hypertension Hemoglobin A1c 6 Months I10 - Essential (primary) hypertension Coding Level of Care Code Est Pt Level 4 (26753) Diagnoses Chronic obstructive pulmonary disease, unspecified COPD type J44.9 COPD type: unspecified COPD Benign essential hypertension I10 Pure hypercholesterolemia E78.00 Generalized anxiety disorder F41.1 S/P ascending aortic aneurysm repair Z98.890; Z86.79
== END 2023-09-23 13:42 | disposition home or self-care (01) ==
PROVIDERS: Visit Provider Internal Medicine
DX: J44.9 Chronic obstructive pulmonary disease, unspecified (principal); I10 Essential (primary) hypertension; E78.00 Pure hypercholesterolemia, unspecified; F41.1 Generalized anxiety disorder; Z98.890 Other specified postprocedural states; Z86.79 Personal history of other diseases of the circulatory system
CPT/HCPCS: 99214

== ENCOUNTER 2023-12-03 06:59 | Outpatient (REF) | payer MEDICARE, SELFPAY ==
[2023-12-03 07:24] LABS: MANUAL DIFF FLAG NO
[2023-12-03 07:32] LABS: Basophils Percent Auto 0.6 % (0-2); Eosinophils Absolute Auto 0.1 X10*3/uL (0.0-0.4); Eosinophils Percent Auto 2.1 % (0-4); Imm Gran Abs Auto 0.01 X10*3/uL (0.00-0.03); Imm Gran Pct Auto 0.2 % (0.0-0.4); Lymphocytes Percent Auto 32.8 % (20-40); Mean Corpuscular HGB Conc 34.2 g/dl (31.0-35.0); Mean Corpuscular Hemoglobin 33.2 pg (27.0-33.0); Mean Corpuscular Volume 96.9 fL (80.0-98.0); Mean Platelet Volume 9.7 fL (9.4-12.3); Monocytes Absolute Auto 0.8 X10*3/uL (0.1-1.2); Monocytes Percent Auto 12.3 % (2-11); Neutrophils Absolute Auto 3.2 x10*3/uL (2.0-8.3); Platelet Count 195 X10*3/uL (160-400); Red Blood Count 3.92 X10*6/uL (4.20-5.50); Red Cell Distribution Width 12.7 % (11.0-16.0); White Blood Count 6.2 X10*3/uL (4.8-10.8)
[2023-12-03 07:46] LABS: Estimated Average Glucose 111 mg/dL; Hemoglobin A1c % 5.5 % (<6.0)
[2023-12-03 08:07] LABS: Alanine Aminotransferase 13 U/L (0-31); Albumin Level 4.3 g/dL (3.5-5.0); Alkaline Phosphatase 56 U/L (39-117); Anion Gap 13 (12-20); Aspartate Amino Transferase 17 U/L (5-31); Bilirubin Total 0.6 mg/dL (0.0-1.0); Blood Urea Nitrogen 19 mg/dL (9-16); Calcium 9.5 mg/dL (8.4-10.2); Carbon Dioxide 28 mmol/L (22-29); Chloride 105 mmol/L (96-108); Cholesterol 155 mg/dL (<200); Estimated Glomerular Filt Rate 59; Glucose Random 109 mg/dL (60-115); HDL Cholesterol 42 mg/dL (>40); LDL Cholesterol Calculated 92 mg/dL (<100); Potassium 4.5 mmol/L (3.3-5.1); Sodium 141 mmol/L (135-145); Total Protein 7.5 g/dL (6.5-8.0); Triglycerides 108 mg/dL (<150)
[2023-12-03 08:32] LABS: Folate 14.4 ng/mL (> or = 4.0); Vitamin B12 1107 pg/mL (200-900)
[2023-12-03 09:12] LABS: Free T4 (Free Thyroxine) 0.88 ng/dL (0.71-1.85); Thyroid Stimulating Hormone 0.66 uIU/mL (0.32-4.0); Vitamin D 25-OH Total 56.9 ng/mL (>30)
== END 2023-12-03 07:00 | disposition home or self-care (01) ==
LOC: HO.LAB 06:59
PROVIDERS: PCP Internal Medicine; Visit Provider Internal Medicine
DX: I10 Essential (primary) hypertension (principal); E78.00 Pure hypercholesterolemia, unspecified
CPT/HCPCS: 36415; 80053; 80061; 82306; 82607; 82746; 83036; 84439; 84443; 85025

== ENCOUNTER 2023-12-12 14:04 | Outpatient (AMB) | payer MEDICARE, SELFPAY ==
[2023-12-12 14:07] VITALS: BP 146/80; PULSE 78; O2SAT 98
--- NOTE | 2023-12-12 14:07 | MHC.PC.OV ---
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 Allergies amoxicillin [AMOXICILLIN] Allergy (Mild, Verified 12/12/23 14:12) UNKNOWN-HAPPENED IN OR 2009 milk [MILK] Allergy (Unknown, Verified 12/12/23 14:12) DIARRHEA lisinopril Adverse Reaction (Intermediate, Verified 12/12/23 14:12) hyperkalemia Tobacco use date assessed: 12/12/23 Fall risk assessment: No Falls in past year Last assessed Fall Risk: 12/12/23 Dental Screening Dental Screen Date: 12/12/23 Did you have a dental visit in the last 12 months?: Yes Did you have a dental problem in the last 6 months where you did not have access to dental care?: No Was dental information given to patient?: Patient has dentist HPI 6 month f/u HPI Details 83-year-old female with a history of COPD hypertension hypercholesterolemia and generalized anxiety disorder last seen in August 2023. Patient's colonoscopy was last done in January 2014 bone density June 2022 mammogram October 2022 and is due. [facility] Medical History (Updated 07/16/23 @ 08:50 by Gabriella Diggs MD) Dysuria Breast cancer screening by mammogram Low back pain Arthritis COVID-19 vaccine series completed Pure hypercholesterolemia Benign essential hypertension Cataracts, bilateral Acute meniscal tear of right knee Urge incontinence Overweight (BMI 25.0-29.9) Aortic aneurysm COPD (chronic obstructive pulmonary disease) Valvular heart disease Obstructive sleep apnea Anemia Surgical History Hx of colonoscopy History of urologic surgery History of bladder surgery History of arthroscopy of right knee History of ankle surgery Status post resection of aortic aneurysm History of cholecystectomy Family History Father No problems noted. Mother Hypertension CVD (cardiovascular disease) Family/Other Diabetes CAD (coronary artery disease) Social History Housing: House Alcohol intake: never Patient Tobacco Use Status: Former Tobacco user Tobacco use type: Cigarette Years Smoked: stopped 52 years old e-Cigarette/Vaping Use: Never Used Second Hand Smoke Exposure: No Current occupational status: retired Cognitive needs: No Hearing needs: No Vision needs: Yes Questionnaire PHQ-9 Over the last 2 weeks, how often have you been bothered by any of the following problems? 1. Little interest or pleasure in doing things: not at all 2. Feeling down, depressed, or hopeless: not at all 3. Trouble falling or staying asleep, or sleeping too much: not at all 4. Feeling tired or having little energy: not at all 5. Poor appetite or overeating: not at all 6. Feeling bad about yourself - or that you are a failure or have let yourself or your family down: not at all 7. Trouble concentrating on things, such as reading the newspaper or watching television: not at all 8. Moving or speaking so slowly that other people could have noticed. Or the opposite - being so fidgety or restless that you have been moving around a lot more than usual: not at all 9. Thoughts that you would be better off or of hurting yourself in some way: not at all Total score: 0 Depression Screening Interpretation: Negative Depression Screening Done: Yes Source: Developed by Drs. Don Dasilva, Kaitlin Logan, Joshua Platt and colleagues, with an educational jose angel from [employer]. Thrive Questionnaire Date Thrive assessed: 12/12/23 I am a: Patient What is your living situation today?: I have a steady place to live Within the past 12 months, did the food you bought not last and you didn't have the money to get more?: Never true Within the past 12 months, did you worry whether your food would run out before you got money to buy more?: Never true Do you have trouble paying for medicines?: No Do you have trouble getting transportation to medical appointments?: No Do you have trouble paying your heating and electricity bill?: No Do you have trouble taking care of your child, family member or friend?: No Do you have trouble with day-to-day activities such as bathing, preparing meals, shopping, managing finances, etc.?: No Are you currently unemployed and looking for a job?: No Are you interested in more education?: No Please select the resources that you would like help with: None THRIVE Score: 0 AUDIT C Alcohol Use Questionnaire (AUDIT-C) 1. How often do you have a drink containing alcohol?: Never 3. How often do you have six or more drinks on one occasion?: Never Total Score: 0 JENNIFER-7 AMB Questionnaire JENNIFER-7 Date JENNIFER - 7 assessed: 12/12/23 Source: Developed by Drs. Don Dasilva, Kaitlin Logan, Joshua Platt and colleagues, with an educational jose angel from [employer]. Physical exam (Primary Care) Vital Signs: Last Vital Signs Pulse 78 12/12/23 14:07 BP 146/80 H 12/12/23 14:07 Pulse Ox 98 12/12/23 14:07 Oxygen Delivery Method Room Air 12/12/23 14:07 Tobacco/Smoking Status: Tobacco use Status Tobacco use date assessed 12/12/23 12/12/23 14:09 Patient Tobacco Use Status Former Tobacco user 12/12/23 14:09 Tobacco use type Cigarette 12/12/23 14:09 e-Cigarette/Vaping Use Never Used 12/12/23 14:09 PHQ-9: PHQ-9 Score PHQ-9: Total score 0 12/12/23 14:09 Depression Screening Interpretation: Negative Thrive Assessment: Date of Thrive Assessment Date Thrive assessed 12/12/23 12/12/23 14:09 Const General: alert; No acute distress Eyes Conjunctivae: conjunctivae normal Resp Auscultation: clear to auscultation bilaterally Cardio Rate: regular rate Rhythm: regular rhythm GI Inspection: Yes normal to inspection Extrem General: Yes normal to inspection and No edema Assessment and Plan Assessment & Plan (1) COPD (chronic obstructive pulmonary disease): Code(s): J44.9 - Chronic obstructive pulmonary disease, unspecified Qualifiers: COPD type: unspecified COPD Qualified Code(s): J44.9 - Chronic obstructive pulmonary disease, unspecified Plan: Stable no need for inhalers (2) Benign essential hypertension: Code(s): I10 - Essential (primary) hypertension Plan: Continue with blood pressure medication. Decrease salt intake and exercise takes metoprolol 50 mg once a day (3) Pure hypercholesterolemia: Code(s): E78.00 - Pure hypercholesterolemia, unspecified Plan: Avoid fried foods, chicken skin, eggs, butter margarine, pastries and meat. Be it pork or beef they have a lot of cholesterol LDL goal of less than 100 and triglyceride of less than 150 (4) Generalized anxiety disorder: Comment: decline phone counselling Code(s): F41.1 - Generalized anxiety disorder (5) Peripheral vascular disease: Code(s): I73.9 - Peripheral vascular disease, unspecified Plan: When sitting down elevate the legs, exercise, and support stockings Medications: Changed From metoprolol succinate ER (Toprol XL) 50 mg PO DAILY 90 tabs 3RF To metoprolol succinate ER 100 mg PO DAILY 90 days 90 tabs 3RF Coding Level of Care Code Est Pt Level 4 (09145) Diagnoses Chronic obstructive pulmonary disease, unspecified COPD type J44.9 COPD type: unspecified COPD Benign essential hypertension I10 Pure hypercholesterolemia E78.00 Generalized anxiety disorder F41.1 Peripheral vascular disease I73.9
[2023-12-12 14:23] VITALS: BP 140/70
== END 2023-12-12 14:36 | disposition home or self-care (01) ==
PROVIDERS: PCP Internal Medicine; Visit Provider Internal Medicine
DX: J44.9 Chronic obstructive pulmonary disease, unspecified (principal); I73.9 Peripheral vascular disease, unspecified; I10 Essential (primary) hypertension; E78.00 Pure hypercholesterolemia, unspecified; F41.1 Generalized anxiety disorder
CPT/HCPCS: 99214

== ENCOUNTER 2024-03-19 12:39 | Outpatient (AMB) | payer MEDICARE, SELFPAY ==
[2024-03-19 12:41] VITALS: BP 142/76; PULSE 78; O2SAT 95
--- NOTE | 2024-03-19 12:41 | MHC.PC.OV ---
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 Allergies amoxicillin [AMOXICILLIN] Allergy (Mild, Verified 03/19/24 12:42) UNKNOWN-HAPPENED IN OR 2009 milk [MILK] Allergy (Unknown, Verified 03/19/24 12:42) DIARRHEA lisinopril Adverse Reaction (Intermediate, Verified 03/19/24 12:42) hyperkalemia Medication List - Last Reconciled 03/19/24 by Gabriella Diggs MD acetaminophen 325 mg PO Q6H PRN ascorbic acid (vitamin C) 1,000 mg PO Q6H aspirin (Adult Aspirin Regimen) 81 mg PO DAILY atorvastatin 20 mg PO DAILY cholecalciferol (vitamin D3) 75 mcg (3 x 25 mcg (1,000 unit)) PO DAILY cyanocobalamin (vitamin B-12) 100 mcg PO DAILY docusate sodium (Colace) 100 mg PO DAILY tpeezggp-lwco-[id number]-suzie-bosw 750 mg-644 mg- 30 mg-1 mg 1 tab PO DAILY metoprolol succinate ER 100 mg PO DAILY 90 days multivitamin 1 tab PO DAILY polyethylene glycol 3350 (Miralax) 17 grams PO DAILY Tobacco use date assessed: 03/19/24 Fall risk assessment: No Falls in past year Last assessed Fall Risk: 03/19/24 Dental Screening Dental Screen Date: 12/12/23 HPI Hypertension HPI Details 84-year-old female with COPD hypertension hypercholesterolemia generalized anxiety disorder last seen in 12/16/2023. Patient's colonoscopy done January 2014. Bone density 07/16/2022 up-to-date mammogram is due but is scheduled. will be ff up with cardiology [facility] Medical History (Updated 02/03/24 @ 17:20 by Gabriella Diggs MD) Dysuria Breast cancer screening by mammogram Low back pain Arthritis COVID-19 vaccine series completed Pure hypercholesterolemia Benign essential hypertension Cataracts, bilateral Acute meniscal tear of right knee Urge incontinence Overweight (BMI 25.0-29.9) Aortic aneurysm COPD (chronic obstructive pulmonary disease) Valvular heart disease Obstructive sleep apnea Anemia Surgical History (Updated 03/19/24 @ 13:15 by Gabriella Diggs MD) Hx of colonoscopy History of urologic surgery History of bladder surgery History of arthroscopy of right knee History of ankle surgery Status post resection of aortic aneurysm History of cholecystectomy Family History Father No problems noted. Mother Hypertension CVD (cardiovascular disease) Family/Other Diabetes CAD (coronary artery disease) Social History Housing: House Alcohol intake: never Patient Tobacco Use Status: Former Tobacco user Tobacco use type: Cigarette Years Smoked: stopped 52 years old e-Cigarette/Vaping Use: Never Used Second Hand Smoke Exposure: No Current occupational status: retired Cognitive needs: No Hearing needs: No Vision needs: Yes Questionnaire Thrive Questionnaire Date Thrive assessed: 12/12/23 AUDIT C Alcohol Use Questionnaire (AUDIT-C) 1. How often do you have a drink containing alcohol?: Never 3. How often do you have six or more drinks on one occasion?: Never Total Score: 0 JENNIFER-7 AMB Questionnaire JENNIFER-7 Date JENNIFER - 7 assessed: 12/12/23 Source: Developed by Drs. Don Dasilva, Kaitlin Logan, Joshua Platt and colleagues, with an educational jose angel from [employer]. Physical exam (Primary Care) Vital Signs: Last Vital Signs Pulse 78 03/19/24 12:41 BP 142/76 H 03/19/24 12:41 Pulse Ox 95 03/19/24 12:41 Oxygen Delivery Method Room Air 03/19/24 12:41 Tobacco/Smoking Status: Tobacco use Status Tobacco use date assessed 03/19/24 03/19/24 12:42 Patient Tobacco Use Status Former Tobacco user 03/19/24 12:42 Tobacco use type Cigarette 03/19/24 12:42 e-Cigarette/Vaping Use Never Used 03/19/24 12:42 Thrive Assessment: Date of Thrive Assessment Date Thrive assessed 12/12/23 03/19/24 12:42 Const General: alert; No acute distress Eyes Conjunctivae: conjunctivae normal Resp Auscultation: clear to auscultation bilaterally Cardio Rate: regular rate Rhythm: regular rhythm GI Inspection: Yes normal to inspection Extrem General: Yes normal to inspection and No edema Assessment and Plan Assessment & Plan (1) COPD (chronic obstructive pulmonary disease): Code(s): J44.9 - Chronic obstructive pulmonary disease, unspecified Qualifiers: COPD type: unspecified COPD Qualified Code(s): J44.9 - Chronic obstructive pulmonary disease, unspecified Plan: Stable (2) Benign essential hypertension: Code(s): I10 - Essential (primary) hypertension Plan: Continue with blood pressure medication. Decrease salt intake and exercise presently on metoprolol 100 mg once a day (3) Pure hypercholesterolemia: Code(s): E78.00 - Pure hypercholesterolemia, unspecified Plan: Avoid fried foods, chicken skin, eggs, butter margarine, pastries and meat. Be it pork or beef they have a lot of cholesterol LDL goal 130 and triglyceride of less than 150. Patient on atorvastatin 20 mg once a day (4) Post herpetic neuralgia: Comment: Right upper back Code(s): B02.29 - Other postherpetic nervous system involvement (5) Generalized anxiety disorder: Comment: decline phone counselling Code(s): F41.1 - Generalized anxiety disorder Orders: Orders CA echo transthoracic complete Today I51.89 - Other ill-defined heart diseases AMB EKG-In Office Today I51.89 - Other ill-defined heart diseases Medications: New cholecalciferol (vitamin D3) 75 mcg (3 x 25 mcg (1,000 unit)) PO DAILY 90 caps 0RF Coding Level of Care Code Est Pt Level 4 (66719) Diagnoses Chronic obstructive pulmonary disease, unspecified COPD type J44.9 COPD type: unspecified COPD Benign essential hypertension I10 Pure hypercholesterolemia E78.00 Post herpetic neuralgia B02.29 Generalized anxiety disorder F41.1
== END 2024-03-19 13:28 | disposition home or self-care (01) ==
PROVIDERS: PCP Internal Medicine; Visit Provider Internal Medicine
DX: J44.9 Chronic obstructive pulmonary disease, unspecified (principal); I10 Essential (primary) hypertension; E78.00 Pure hypercholesterolemia, unspecified; B02.29 Other postherpetic nervous system involvement; F41.1 Generalized anxiety disorder
CPT/HCPCS: 99214

== ENCOUNTER 2024-03-23 15:48 | Outpatient (REF) | payer MEDICARE, SELFPAY | END 2024-03-23 15:49 | disposition home or self-care (01) | LOC: HO.MAMMO 15:48 | PROVIDERS: PCP Internal Medicine; Visit Provider Internal Medicine | DX: Z12.31 Encounter for screening mammogram for malignant neoplasm of breast (principal) | CPT/HCPCS: 77063; 77067 ==

== ENCOUNTER → 2024-03-23 16:00 | Outpatient (BNV) | payer MEDICARE, SELFPAY | PROVIDERS: PCP Internal Medicine; Visit Provider Radiology Diagnostic Radiology | DX: Z12.31 Encounter for screening mammogram for malignant neoplasm of breast (principal) | CPT/HCPCS: 77063; 77067 ==

== ENCOUNTER → 2024-04-12 13:26 | Outpatient (REF) | payer MEDICARE, SELFPAY ==
--- NOTE | 2024-04-12 13:31 | CA_ITS ---
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 The visually estimated ejection fraction is between 60-65%. - There is mild to moderately decreased right ventricular systolic function. - There is mild to moderate tricuspid valve regurgitation. - The aortic annulus and sinuses of valsalva are normal in size. History of ascending aortic graft. Findings Procedure Information Contrast agent, definity, is being given per protocol without apparent complications. Left Ventricle Normal left ventricular cavity size. There is normal left ventricular wall thickness. The left ventricular systolic function is normal. The visually estimated ejection fraction is between 60-65%. There is no evidence of regional wall motion abnormalities. Diastolic function is indeterminate on the basis of available data. Right Ventricle The right ventricle was not well visualized. There is mild to moderately decreased right ventricular systolic function. Right ventricle appears dilated. Atria The left atrium is normal in size. The right atrium is mildly dilated. Aortic Valve There is mild calcification of the aortic valve. There is no aortic valve stenosis. There is mild aortic valve regurgitation. Mitral Valve The mitral valve appears normal. There is no mitral valve regurgitation. There is no mitral valve stenosis. Pulmonic Valve The pulmonic valve is likely normal. Tricuspid Valve Normal tricuspid valve structure. There is mild to moderate tricuspid valve regurgitation. There is no evidence of pulmonary hypertension. Great Vessels The aortic annulus and sinuses of valsalva are normal in size. History of ascending aortic graft. Venous The inferior vena cava is mildly dilated and collapses greater than 50% with inspiration. Pericardium/Pleural There is no evidence of pericardial effusion. Prior Study Comparison No significant change compared to prior study dated: 12/31/2022. Measurements 2D Linear Measurements IVSd: 0.88 0.6-0.9/0.6-1.0 cm LVIDd: 4.26 3.9-5.3/4.2-5.9 cm LVIDd Index: 2.33 2.4-3.2/2.2-3.1 cm/m2 LVIDs: 2.33 2.0-3.6 cm LVPWd: 0.70 0.7-1.1 cm LA Diam: 4.90 2.7-3.8/3.0-4.0 cm LAIDs Index: 2.68 1.5-2.3 cm/m2 LV Mass: 126.10 67-162/88-224 g LV Mass Index: 68.91 43-95/49-115 g/m2 LVOT Diam: 1.90 3.0+(-)1.3 cm 2D Systolic Function EF 4C: 62.60 >55% Mitral Valve MV Pk E: 0.78 MV PK A: 0.75 MV Decel Time: 140.00 E/A: 1.00 PHT: 41.00 MVA PHT: 5.37 Decel Knott: 5.62 Aortic Valve AoV Pk Panchito: 1.56 AoV Mn Panchito: 1.08 AoV VTI: 0.36 AoV Pk Grad: 10.00 Aov Mn Grad: 5.00 [place] Cont.VTI: 1.58 LVOT LVOT Pk Panchito: 0.86 LVOT Mn Panchito: 0.63 LVOT VTI: 0.20 LVOT Pk Grad: 3.00 LVOT Mn Grad: 2.00 LVOT Diam: 1.90 LVOT Area: 2.84 Diastolic Function MV Pk E: 0.78 MV Pk A: 0.75 E/A: 1.00 Right Ventricle TAPSE (mm): 15.30 TVS' Panchito: 7.51 Tricuspid Valve TR Pk Panchito: 2.66 TR Pk Grad: 28.00 RA Press: 8.00 RVSP: 36.00 Great Vessels Aorta Sinus of Valsalva: 3.00 2.0-3.5 cm Ao Asc: 3.50 2.1-3.4 cm Ao Arch: 3.80 Pulmonary Valve PV Pk Panchito: 0.71 Peak PV Grad: 2.00 Updated in Other Vendor System with Status of Final Pool Nguyen MD electronically signed on 04/13/2024 11:44:03 AM with status of Final
== END ==
LOC: HO.CARD 13:26
PROVIDERS: PCP Internal Medicine; Visit Provider Internal Medicine
DX: I51.89 Other ill-defined heart diseases (principal)
CPT/HCPCS: 93306; Q9957

== ENCOUNTER → 2024-04-12 13:31 | Outpatient (BNV) | payer MEDICARE, SELFPAY | PROVIDERS: PCP Internal Medicine; Visit Provider Internal Medicine | DX: I36.1 Nonrheumatic tricuspid (valve) insufficiency (principal); I35.1 Nonrheumatic aortic (valve) insufficiency; Z95.828 Presence of other vascular implants and grafts | CPT/HCPCS: 93306 ==

== ENCOUNTER 2024-07-01 10:01 | Outpatient (REF) | payer MEDICARE, SELFPAY ==
[2024-07-01 12:10] LABS: Appearance Urine Clear; Color Urine Yellow; Glucose Urine UA Negative (Negative); Leukocyte Esterase Urine Negative (Negative); Nitrite Urine Negative (Negative); PH 5.5 (5.0-9.0); Specific Gravity - Urine 1.015 (1.005-1.025); Urine Blood Negative (Negative); Urine Ketones Negative (Negative); Urine Protein Negative (Neg-Trace)
== END 2024-07-01 10:02 | disposition home or self-care (01) ==
LOC: HO.LAB 10:01
PROVIDERS: PCP Internal Medicine; Visit Provider Internal Medicine
DX: R30.0 Dysuria (principal)
CPT/HCPCS: 81003

== ENCOUNTER 2024-08-20 12:14 | Outpatient (AMB) | payer MEDICARE, SELFPAY ==
[2024-08-20 12:21] VITALS: BP 136/70; PULSE 79; O2SAT 94
--- NOTE | 2024-08-20 12:21 | MHC.PC.OV ---
Vital Signs 08/20/24 12:21 Height 5 ft 2 in BMI Reason not done Patient refused/unable BP 136/70 Blood Pressure Location Lt brachial Position Sitting Pulse 79 Pulse Source Pulse Oximeter Pulse Oximetry (%) 94 Oxygen Delivery Method Room Air Intake Visit Reasons: HTN, cholesterol Allergies amoxicillin [AMOXICILLIN] Allergy (Mild, Verified 08/20/24 12:23) UNKNOWN-HAPPENED IN OR 2009 milk [MILK] Allergy (Unknown, Verified 08/20/24 12:23) DIARRHEA lisinopril Adverse Reaction (Intermediate, Verified 08/20/24 12:23) hyperkalemia Tobacco use date assessed: 03/19/24 Fall risk assessment: No Falls in past year Last assessed Fall Risk: 08/20/24 Dental Screening Dental Screen Date: 12/12/23 HPI HTN, cholesterol HPI Details 84 year old female with hypertension, hypercholesterolemia generalized anxiety disorder COPD and post herpetic neuralgia coming in for follow-up. Last seen in February 2024 patient had an echocardiogram done in 03/2024The left ventricular systolic function is normal. The visually estimated ejection fraction is between 60-65%. - There is mild to moderately decreased right ventricular systolic function. - There is mild to moderate tricuspid valve regurgitation. - The aortic annulus and sinuses of valsalva are normal in size. History of ascending aortic graft. Just today noted blood per rectum., no diarrhea, no constipation now, but 2 weeks ago on Abx had constipation. 2 weeks noted growth on the chin [facility] Medical History (Updated 08/20/24 @ 12:55 by Gabriella Diggs MD) Dysuria Breast cancer screening by mammogram Low back pain Arthritis COVID-19 vaccine series completed Pure hypercholesterolemia Benign essential hypertension Cataracts, bilateral Acute meniscal tear of right knee Urge incontinence Overweight (BMI 25.0-29.9) Aortic aneurysm COPD (chronic obstructive pulmonary disease) Valvular heart disease Obstructive sleep apnea Anemia Surgical History (Updated 03/19/24 @ 13:15 by Gabriella Diggs MD) Hx of colonoscopy History of urologic surgery History of bladder surgery History of arthroscopy of right knee History of ankle surgery Status post resection of aortic aneurysm History of cholecystectomy Family History Father No problems noted. Mother Hypertension CVD (cardiovascular disease) Family/Other Diabetes CAD (coronary artery disease) Social History Housing: House Alcohol intake: never Patient Tobacco Use Status: Former Tobacco user Tobacco use type: Cigarette Years Smoked: stopped 52 years old e-Cigarette/Vaping Use: Never Used Second Hand Smoke Exposure: No Current occupational status: retired Cognitive needs: No Hearing needs: No Vision needs: Yes Questionnaire PHQ-9 Over the last 2 weeks, how often have you been bothered by any of the following problems? 1. Little interest or pleasure in doing things: not at all 2. Feeling down, depressed, or hopeless: not at all 3. Trouble falling or staying asleep, or sleeping too much: not at all 4. Feeling tired or having little energy: not at all 5. Poor appetite or overeating: not at all 6. Feeling bad about yourself - or that you are a failure or have let yourself or your family down: not at all 7. Trouble concentrating on things, such as reading the newspaper or watching television: not at all 8. Moving or speaking so slowly that other people could have noticed. Or the opposite - being so fidgety or restless that you have been moving around a lot more than usual: not at all 9. Thoughts that you would be better off or of hurting yourself in some way: not at all Total score: 0 Depression Screening Interpretation: Negative Depression Screening Done: Yes Source: Developed by Drs. Don Dasilva, Kaitlin Logan, Joshua Platt and colleagues, with an educational jose angel from [employer]. Thrive Questionnaire Date Thrive assessed: 12/12/23 AUDIT C Alcohol Use Questionnaire (AUDIT-C) 1. How often do you have a drink containing alcohol?: Never 3. How often do you have six or more drinks on one occasion?: Never Total Score: 0 JENNIFER-7 AMB Questionnaire JENNIFER-7 Date JENNIFER - 7 assessed: 12/12/23 Source: Developed by Drs. Don Dasilva, Kaitlin Logan, Joshua Platt and colleagues, with an educational jose angel from [employer]. Physical exam (Primary Care) Vital Signs: Last Vital Signs Pulse 79 08/20/24 12:21 BP 136/70 08/20/24 12:21 Pulse Ox 94 08/20/24 12:21 Oxygen Delivery Method Room Air 08/20/24 12:21 Tobacco/Smoking Status: Tobacco use Status Tobacco use date assessed 03/19/24 08/20/24 12:27 Patient Tobacco Use Status Former Tobacco user 08/20/24 12:27 Tobacco use type Cigarette 08/20/24 12:27 e-Cigarette/Vaping Use Never Used 08/20/24 12:27 PHQ-9: PHQ-9 Score PHQ-9: Total score 0 08/20/24 12:27 Depression Screening Interpretation: Negative Thrive Assessment: Date of Thrive Assessment Date Thrive assessed 12/12/23 08/20/24 12:27 Const General: alert; No acute distress Eyes Conjunctivae: conjunctivae normal Resp Auscultation: clear to auscultation bilaterally Cardio Rate: regular rate Rhythm: regular rhythm GI Other: hemorrhoid noted with guaiac negative Extrem General: Yes normal to inspection and No edema Coding Level of Care Code Est Pt Level 4 (62492) Diagnoses Osteopenia, unspecified location M85.80 Osteopenia location: unspecified Benign essential hypertension I10 Pure hypercholesterolemia E78.00 Post herpetic neuralgia B02.29 Chronic obstructive pulmonary disease, unspecified COPD type J44.9 COPD type: unspecified COPD Generalized anxiety disorder F41.1 Verruca B07.9 Rectal bleeding K62.5 Other hemorrhoids K64.8 Hemorrhoid type: other Assessment & Plan Assessment & Plan (1) Osteopenia: Comment: June 2022 Code(s): M85.80 - Other specified disorders of bone density and structure, unspecified site Category: Medical Qualifiers: Osteopenia location: unspecified Qualified Code(s): M85.80 - Other specified disorders of bone density and structure, unspecified site Plan: Discussed about repeating bone density (2) Benign essential hypertension: Comment: March 2024 echocardiogram The left ventricular systolic function is normal. The visually estimated ejection fraction is between 60-65%. - There is mild to moderately decreased right ventricular systolic function. - There is mild to moderate tricuspid valve regurgitation. - The aortic annulus and sinuses of valsalva are normal in size. History of ascending aortic graft. Code(s): I10 - Essential (primary) hypertension Category: Medical Plan: Continue with blood pressure medication. Decrease salt intake and exercise continue with metoprolol 100 mg once a day (3) Pure hypercholesterolemia: Code(s): E78.00 - Pure hypercholesterolemia, unspecified Category: Medical Plan: Avoid fried foods, chicken skin, eggs, butter margarine, pastries and meat. Be it pork or beef they have a lot of cholesterol atorvastatin 20 mg once a day LDL goal of less than 130 and triglyceride of less than 150 (4) Post herpetic neuralgia: Comment: Right upper back Code(s): B02.29 - Other postherpetic nervous system involvement Category: Medical Plan: Supportive treatment (5) COPD (chronic obstructive pulmonary disease): Code(s): J44.9 - Chronic obstructive pulmonary disease, unspecified Category: Medical Qualifiers: COPD type: unspecified COPD Qualified Code(s): J44.9 - Chronic obstructive pulmonary disease, unspecified Plan: Stable (6) Generalized anxiety disorder: Comment: decline phone counselling Code(s): F41.1 - Generalized anxiety disorder Category: Medical Plan: Stable (7) Verruca: Comment: chin Code(s): B07.9 - Viral wart, unspecified Category: Medical Plan: Dermatology referral done (8) Rectal bleeding: Code(s): K62.5 - Hemorrhage of anus and rectum Category: Medical Plan: will send in hemorrhoid cream and can do hot sitz bath (9) Hemorrhoid: Code(s): K64.9 - Unspecified hemorrhoids Category: Medical Qualifiers: Hemorrhoid type: other Qualified Code(s): K64.8 - Other hemorrhoids Plan: avoid constipation, keep well hydrated, fiber, and keep active Orders: Orders Comprehensive Met. Panel 3 Months I10 - Essential (primary) hypertension Thyroid Stimulating Hormone 3 Months I10 - Essential (primary) hypertension Vitamin B12 and Folate 3 Months I10 - Essential (primary) hypertension Complete Blood Count Auto Diff 3 Months I10 - Essential (primary) hypertension Free T4 (Free Thyroxine) 3 Months I10 - Essential (primary) hypertension Lipid Panel 3 Months E78.00 - Pure hypercholesterolemia, unspecified, I10 - Essential (primary) hypertension Vitamin D 25-OH Total 3 Months I10 - Essential (primary) hypertension UA CC w/rflx Micro + Cult 3 Months I10 - Essential (primary) hypertension, R30.0 - Dysuria XR DEXA axial skeleton Today M81.0 - Age-related osteoporosis without current pathological fracture, M85.80 - Other specified disorders of bone density and structure, unspecified site Referrals Dermatology Referral B07.9 - Viral wart, unspecified Medications: New hydrocortisone 2.5% (Proctosol HC) 1 appl NC BID-QID PRN 30 grams 11RF itching K64.9 - Unspecified hemorrhoids
== END 2024-08-20 12:56 | disposition home or self-care (01) ==
PROVIDERS: PCP Internal Medicine; Visit Provider Internal Medicine
DX: J44.9 Chronic obstructive pulmonary disease, unspecified (principal); M85.80 Other specified disorders of bone density and structure, unspecified site; I10 Essential (primary) hypertension; E78.00 Pure hypercholesterolemia, unspecified; B02.29 Other postherpetic nervous system involvement; F41.1 Generalized anxiety disorder; B07.9 Viral wart, unspecified; K62.5 Hemorrhage of anus and rectum; K64.8 Other hemorrhoids

== ENCOUNTER → 2024-08-20 12:14 | Outpatient (BNVA) | payer MEDICARE, SELFPAY | PROVIDERS: PCP Internal Medicine; Visit Provider Internal Medicine | DX: M85.80 Other specified disorders of bone density and structure, unspecified site (principal); I10 Essential (primary) hypertension; E78.00 Pure hypercholesterolemia, unspecified; B02.29 Other postherpetic nervous system involvement; J44.9 Chronic obstructive pulmonary disease, unspecified; F41.1 Generalized anxiety disorder; B07.9 Viral wart, unspecified; K62.5 Hemorrhage of anus and rectum; K64.8 Other hemorrhoids | CPT/HCPCS: 96127; 99212 ==

== ENCOUNTER 2024-09-14 11:57 | Outpatient (AMB) | payer MEDICARE, SELFPAY ==
--- NOTE | 2024-09-14 12:32 | MHC.OFFVIS ---
Vital Signs 09/14/24 12:33 Height 5 ft 2 in BMI Reason not done Patient refused/unable BP 124/68 Blood Pressure Location Lt brachial Position Sitting Pulse 75 Pulse Source Monitor Intake Visit Reasons: 1 year fu after echo Allergies amoxicillin [AMOXICILLIN] Allergy (Mild, Verified 08/20/24 12:23) UNKNOWN-HAPPENED IN OR 2009 milk [MILK] Allergy (Unknown, Verified 08/20/24 12:23) DIARRHEA lisinopril Adverse Reaction (Intermediate, Verified 08/20/24 12:23) hyperkalemia Medication List - Last Reconciled 09/14/24 by Pool Nguyen MD acetaminophen 325 mg PO Q6H ascorbic acid (vitamin C) 1,000 mg PO Q6H aspirin (Adult Aspirin Regimen) 81 mg PO DAILY atorvastatin 20 mg PO DAILY cholecalciferol (vitamin D3) 75 mcg (3 x 25 mcg (1,000 unit)) PO DAILY cyanocobalamin (vitamin B-12) 100 mcg PO DAILY docusate sodium (Colace) 100 mg PO DAILY [id number]-[id number] 750 mg-644 mg- 30 mg-1 mg 1 tab PO DAILY hydrocortisone 2.5% (Proctosol HC) [address] BID-QID PRN metoprolol succinate ER 100 mg PO DAILY 90 days multivitamin 1 tab PO DAILY polyethylene glycol 3350 (Miralax) 17 grams PO DAILY HPI Comments Details: Kayla returns for follow-up. To recall, she had surgery for aortic aneurysm in 2009. Per operative note, she had repair of ascending aortic aneurysm with aortic graft. 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 It seems that she was seen by Dr. Lynne from [facility] for some time but then stopped. She herself has no cardiac complaints at all. No angina. Denies any shortness of breath or in fact anything cardiac sounding. No palpitations. Does things like water aerobics without any major difficulty. Last year, she was referred back to cardiac surgery. She is now getting follow-up CT scans through them. [facility] Medical History (Updated 08/20/24 @ 12:55 by Gabriella Diggs MD) Dysuria Breast cancer screening by mammogram Low back pain Arthritis COVID-19 vaccine series completed Pure hypercholesterolemia Benign essential hypertension Cataracts, bilateral Acute meniscal tear of right knee Urge incontinence Overweight (BMI 25.0-29.9) Aortic aneurysm COPD (chronic obstructive pulmonary disease) Valvular heart disease Obstructive sleep apnea Anemia Surgical History (Updated 03/19/24 @ 13:15 by Gabriella Diggs MD) Hx of colonoscopy History of urologic surgery History of bladder surgery History of arthroscopy of right knee History of ankle surgery Status post resection of aortic aneurysm History of cholecystectomy Family History Father No problems noted. Mother Hypertension CVD (cardiovascular disease) Family/Other Diabetes CAD (coronary artery disease) Social History Housing: House Alcohol intake: never Patient Tobacco Use Status: Former Tobacco user Tobacco use type: Cigarette Years Smoked: stopped 52 years old e-Cigarette/Vaping Use: Never Used Second Hand Smoke Exposure: No Current occupational status: retired Cognitive needs: No Hearing needs: No Vision needs: Yes Review of Systems Const Denies weakness ENT Denies dizziness Card Denies chest pain, Denies chest pain with activity, Denies syncope, Denies rapid heart rate, Denies pedal edema, Denies edema, Denies leg edema, Denies lightheadedness, Denies palpitations, Denies dyspnea, Denies dyspnea on exertion and Denies orthopnea Resp Denies cough, Denies dyspnea and Denies dyspnea on exertion GI Denies hematochezia and Denies change in stool character Musc Denies abnormal gait, Denies muscle cramps, Denies muscle weakness, Denies numbness, Denies radiating pain into limb and Denies tingling Neuro Denies abnormal gait, Denies dizziness, Denies syncope, Denies numbness, Denies tingling and Denies weakness Endo Denies palpitations Physical Exam Vital Signs: Last Vital Signs Pulse 75 09/14/24 12:33 BP 124/68 09/14/24 12:33 Const General: comfortable and no acute distress Orientation/consciousness: patient oriented x3 HEENT Other: Unremarkable Head: Yes normal to inspection Neck Neck: Yes normal visual inspection Chest Chest palpation & inspection: normal inspection of the chest Resp Auscultation: clear to auscultation bilaterally Cardio Palpation: normal PMI Heart sounds: S1 normal heart sound present, S2 normal heart sound present, no gallops, Murmur heart sound present systolic II/ and no rubs GI Palpation (GI): Soft to palpation Back/Spine/Pelvis Other: unremarkable Skin General skin exam: no rashes or lesions noted Neuro General: patient oriented x3 Extrem General: Yes normal to inspection Psych Mental Status: mental status grossly normal Office Procedures EKG Details: EKG with underlying sinus rhythm at 75/Min; CT prolongation to 270 millisecond; nonspecific changes. [id number], Complete Assessment & Plan Assessment & Plan (1) S/P ascending aortic aneurysm repair: Code(s): Z98.890 - Other specified postprocedural states; Z86.79 - Personal history of other diseases of the circulatory system Category: Surgical Plan: Per operative note from 2009, she had repair of ascending aortic aneurysm with Hemashield aortic graft. Per surgery note from this week, a noncontrast CTA had shown proximal descending thoracic aortic size of 4.7 cm. Awaiting repeat study with contrast. Further plan per surgery. Avoid strenuous exertion as well as maintain good blood pressure control. Today's blood pressure is 124/68 mm Hg. 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 Right coronary artery could not be imaged well due to anterior origin but no obvious obstructive disease. Clinically, she has got no angina or in fact any cardiac symptoms. (3) Right ventricular enlargement: Code(s): I51.7 - Cardiomegaly Category: Medical Plan: In the recent echocardiogram, LVEF 60-65%. Right ventricle not well visualized but thought to be dilated with reduced function. Clinically, no symptoms or signs of congestive heart failure. (4) Atrial arrhythmia: Code(s): I49.8 - Other specified cardiac arrhythmias Category: Medical Plan: Frequent supraventricular ectopy on EKG. At increased risk for atrial fibrillation. (5) Benign essential hypertension: Comment: March 2024 echocardiogram The left ventricular systolic function is normal. The visually estimated ejection fraction is between 60-65%. - There is mild to moderately decreased right ventricular systolic function. - There is mild to moderate tricuspid valve regurgitation. - The aortic annulus and sinuses of valsalva are normal in size. History of ascending aortic graft. Code(s): I10 - Essential (primary) hypertension Category: Medical Plan: Stable. 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
[2024-09-14 12:33] VITALS: BP 124/68; PULSE 75
== END 2024-09-14 13:01 | disposition home or self-care (01) ==
PROVIDERS: PCP Internal Medicine; Visit Provider Internal Medicine
DX: Z98.890 Other specified postprocedural states (principal); Z86.79 Personal history of other diseases of the circulatory system; Q24.5 Malformation of coronary vessels; I51.7 Cardiomegaly; I49.8 Other specified cardiac arrhythmias; I10 Essential (primary) hypertension
CPT/HCPCS: 93010; 99214

== ENCOUNTER → 2024-09-14 11:57 | Outpatient (BNVA) | payer MEDICARE, SELFPAY | PROVIDERS: PCP Internal Medicine; Visit Provider Internal Medicine | DX: Q24.5 Malformation of coronary vessels (principal); I51.7 Cardiomegaly; I49.8 Other specified cardiac arrhythmias; I10 Essential (primary) hypertension; Z98.890 Other specified postprocedural states; Z86.79 Personal history of other diseases of the circulatory system | CPT/HCPCS: 93005; 99212 ==

== ENCOUNTER 2024-09-21 10:32 | Outpatient (REF) | payer MEDICARE, SELFPAY ==
--- NOTE | ~2024-09-21 | MM_ITS ---
EXAMINATION: BONE DENSITOMETRY CLINICAL INDICATION: Age-related osteoporosis without current pathological fracture. COMPARISON: Previous BD dated 07/03/2022 and baseline BD dated 05/30/2015. TECHNIQUE: Using a Access Network DXA System (software version: 13.1) manufactured by [employer], dual-energy x-ray absorptiometry was performed of the lumbar spine and left hip. The images are of good technical quality. Summary results are attached. FINDINGS: AP SPINE L1-L4: Current: BMD 1.362 g/cm2, Z-score 2.8, T-score 1.5, normal, 0.9% increase from previous, 20.5% increase from baseline (<5% change is not significant). Prior: BMD 1.350 g/cm2. Baseline: BMD 1.130 g/cm2. LEFT FEMUR, NECK: Current: BMD 0.713 g/cm2, Z-score -0.4, T-score -2.3, osteopenia. Prior: BMD 0.752 g/cm2. Baseline: BMD 0.745 g/cm2. LEFT FEMUR, TOTAL: Current: BMD 0.838 g/cm2, Z-score 0.4, T-score -1.3, osteopenia, 4.1% decrease from previous, 4.3% decrease from baseline (<5% change is not significant). Prior: BMD 0.874 g/cm2. Baseline: BMD 0.876 g/cm2. IDENTIFIED RISK FACTORS: Osteoporosis. Height loss. Menopause. HISTORY OF FRACTURE: None listed. MEDICATIONS: Vitamin D. MM/XR DEXA axial skeleton IMPRESSION: 1. DIAGNOSIS: Osteopenia based on the lowest T-score value of -2.3 in the femoral neck applying World Health Organization criteria. 2. 10-YEAR FRACTURE RISK PREDICTION, FRAX: Major osteoporotic fracture (clinical spine, forearm, hip or shoulder) 17.2%. Hip fracture 5.9%. 3. Treatment Recommendations: NOF guidelines recommend consideration for treatment in postmenopausal women and men age 50 and older presenting with the following: -A hip or vertebral (clinical or morphometric) fracture. -T-score less than or equal to -2.5 at the femoral neck or spine after appropriate evaluation to exclude secondary causes. -Low bone mass at the hip or spine and a 10-year fracture probability by FRAX of greater than or equal to 3% for hip fracture or greater than or equal to 20% for major osteoporotic fracture based on the [place] adapted WHO algorithm. 4. Other Recommendations: All treatment decisions require clinical judgment and consideration of individual patient factors, including patient preferences, comorbidities, previous drug use, risk factors not captured in the FRAX model (e.g. frailty, falls, vitamin D deficiency, increased bone turnover, interval significant decline in bone density) and possible under or overestimation of fracture risk by FRAX. Additional medical evaluation for secondary cause of low bone mineral density may be appropriate. FUTURE SCAN RECOMMENDATION: People with diagnosed cases of osteoporosis or at high risk for fracture should have regular bone mineral density tests. For patients eligible for Medicare, routine testing is allowed once every 2 years. The testing frequency can be increased to one year for patients who have rapidly progressing disease, those who are receiving or discontinuing medical therapy to restore bone mass, or have additional risk factors. Electronically signed by: Cortes Jacques MD 09/21/2024 03:24 PM BAILEE VAUGHAN
== END 2024-09-21 10:33 | disposition home or self-care (01) ==
LOC: HO.MAMMO 10:32
PROVIDERS: PCP Internal Medicine; Visit Provider Internal Medicine
DX: M81.0 Age-related osteoporosis without current pathological fracture (principal); M85.80 Other specified disorders of bone density and structure, unspecified site
CPT/HCPCS: 77080

== ENCOUNTER 2024-12-10 12:19 | Outpatient (AMB) | payer MEDICARE, SELFPAY ==
[2024-12-10 12:27] VITALS: BP 136/68; PULSE 78; O2SAT 98
--- NOTE | 2024-12-10 12:27 | MHC.PC.OV ---
Vital Signs 12/10/24 12:27 Height 5 ft 2 in BMI Reason not done Patient refused/unable BP 136/68 Blood Pressure Location Lt brachial Position Sitting Pulse 78 Pulse Source Pulse Oximeter Pulse Oximetry (%) 98 Oxygen Delivery Method Room Air Intake Visit Reasons: cholesterol Allergies amoxicillin [AMOXICILLIN] Allergy (Mild, Verified 12/10/24 12:27) UNKNOWN-HAPPENED IN OR 2009 milk [MILK] Allergy (Unknown, Verified 12/10/24 12:27) DIARRHEA lisinopril Adverse Reaction (Intermediate, Verified 12/10/24 12:27) hyperkalemia Tobacco use date assessed: 12/10/24 Fall risk assessment: No Falls in past year Last assessed Fall Risk: 12/10/24 Dental Screening Dental Screen Date: 12/10/24 Did you have a dental visit in the last 12 months?: Yes Did you have a dental problem in the last 6 months where you did not have access to dental care?: No Was dental information given to patient?: Patient has dentist HPI cholesterol HPI Details The patient is an 84-year-old female presenting with multiple chronic conditions for follow-up. She has a history of obesity, COPD, essential hypertension, and hypercholesterolemia. 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 She underwent a colonoscopy last in January 2014, with bone density testing in August 2024 revealing osteopenia. Her last mammogram was mid-2023. Recent laboratory work indicates an elevated blood sugar level, though hemoglobin A1c remains normal. Her blood pressure is stable on metoprolol, and hypercholesterolemia is managed with atorvastatin, aiming for an LDL goal of less than 100 mg/dL, which has been achieved with a current LDL of 92 mg/dL. The patient has a history of mild obstructive sleep apnea diagnosed in 2017. Regular exercise and dietary modifications are discussed as part of her ongoing management. She has received the COVID-19 and flu vaccinations but has not received an RSV shot. Lifestyle adjustments, including dietary changes and regular check-ups, are emphasized to manage her conditions efficiently. [facility] Medical History (Updated 09/27/24 @ 14:29 by Gabriella Diggs MD) Dysuria Breast cancer screening by mammogram Low back pain Arthritis COVID-19 vaccine series completed Pure hypercholesterolemia Benign essential hypertension Cataracts, bilateral Acute meniscal tear of right knee Urge incontinence Overweight (BMI 25.0-29.9) Aortic aneurysm COPD (chronic obstructive pulmonary disease) Valvular heart disease Obstructive sleep apnea Anemia Surgical History (Updated 12/10/24 @ 12:40 by Gabriella Diggs MD) Hx of colonoscopy History of urologic surgery History of bladder surgery History of arthroscopy of right knee History of ankle surgery Status post resection of aortic aneurysm History of cholecystectomy Family History Father No problems noted. Mother Hypertension CVD (cardiovascular disease) Family/Other Diabetes CAD (coronary artery disease) Social History Housing: House Alcohol intake: never Patient Tobacco Use Status: Former Tobacco user Tobacco use type: Cigarette Years Smoked: stopped 52 years old e-Cigarette/Vaping Use: Never Used Second Hand Smoke Exposure: No Current occupational status: retired Cognitive needs: No Hearing needs: No Vision needs: Yes Questionnaire PHQ-9 Over the last 2 weeks, how often have you been bothered by any of the following problems? 1. Little interest or pleasure in doing things: not at all 2. Feeling down, depressed, or hopeless: not at all 3. Trouble falling or staying asleep, or sleeping too much: not at all 4. Feeling tired or having little energy: not at all 5. Poor appetite or overeating: not at all 6. Feeling bad about yourself - or that you are a failure or have let yourself or your family down: not at all 7. Trouble concentrating on things, such as reading the newspaper or watching television: not at all 8. Moving or speaking so slowly that other people could have noticed. Or the opposite - being so fidgety or restless that you have been moving around a lot more than usual: not at all 9. Thoughts that you would be better off or of hurting yourself in some way: not at all Total score: 0 Depression Screening Interpretation: Negative Depression Screening Done: Yes Source: Developed by Drs. Don Dasilva, Kaitlin Logan, Joshua Platt and colleagues, with an educational jose angel from [employer]. Thrive Questionnaire Date Thrive assessed: 12/10/24 I am a: Patient What is your living situation today?: I have a steady place to live Within the past 12 months, did the food you bought not last and you didn't have the money to get more?: Never true Within the past 12 months, did you worry whether your food would run out before you got money to buy more?: Never true Do you have trouble paying for medicines?: No Do you have trouble getting transportation to medical appointments?: No Do you have trouble paying your heating and electricity bill?: No Do you have trouble taking care of your child, family member or friend?: No Do you have trouble with day-to-day activities such as bathing, preparing meals, shopping, managing finances, etc.?: No Are you currently unemployed and looking for a job?: No Are you interested in more education?: No Currently or been in a relationship where the following occur: No concerns reported THRIVE Score: 0 AUDIT C Alcohol Use Questionnaire (AUDIT-C) 1. How often do you have a drink containing alcohol?: Never 3. How often do you have six or more drinks on one occasion?: Never Total Score: 0 JENNIFER-7 AMB Questionnaire JENNIFER-7 Date JENNIFER - 7 assessed: 12/10/24 Feeling nervous, anxious, or on edge: 0 = Not at all Not being able to stop or control worryin = Not at all Worrying too much about different things: 0 = Not at all Trouble relaxin = Not at all Being so restless that it is hard to sit still: 0 = Not at all Becoming easily annoyed or irritable: 0 = Not at all Feeling afraid as if something awful might happen: 0 = Not at all Total JENNIFER-7 score (0-4 normal; 5-9 mild; 10-14 moderate; 15-21 severe): 0 Source: Developed by Drs. Don Dasilva, Kaitlin Logan, Joshua Platt and colleagues, with an educational jose angel from [employer]. Physical exam (Primary Care) Vital Signs: Last Vital Signs Pulse 78 12/10/24 12:27 BP 136/68 12/10/24 12:27 Pulse Ox 98 12/10/24 12:27 Oxygen Delivery Method Room Air 12/10/24 12:27 Tobacco/Smoking Status: Tobacco use Status Tobacco use date assessed 12/10/24 12/10/24 12:33 Patient Tobacco Use Status Former Tobacco user 12/10/24 12:33 Tobacco use type Cigarette 12/10/24 12:33 e-Cigarette/Vaping Use Never Used 12/10/24 12:33 PHQ-9: PHQ-9 Score PHQ-9: Total score 0 12/10/24 12:41 Depression Screening Interpretation: Negative Thrive Assessment: Date of Thrive Assessment Date Thrive assessed 12/10/24 12/10/24 12:33 Currently or been in a relationship where the following occur: No concerns reported Const General: alert; No acute distress Eyes Conjunctivae: conjunctivae normal Resp Auscultation: clear to auscultation bilaterally Cardio Rate: regular rate Rhythm: regular rhythm GI Inspection: Yes normal to inspection Extrem General: Yes normal to inspection and No edema Coding Level of Care Code Est Pt Level 4 (11243) Complex EM visit Add On G2211 Diagnoses Chronic obstructive pulmonary disease, unspecified COPD type J44.9 COPD type: unspecified COPD Benign essential hypertension I10 Pure hypercholesterolemia E78.00 Generalized anxiety disorder F41.1 S/P ascending aortic aneurysm repair Z98.890; Z86.79 Assessment & Plan Assessment & Plan (1) COPD (chronic obstructive pulmonary disease): Code(s): J44.9 - Chronic obstructive pulmonary disease, unspecified Category: Medical Qualifiers: COPD type: unspecified COPD Qualified Code(s): J44.9 - Chronic obstructive pulmonary disease, unspecified Plan: Stable (2) Benign essential hypertension: Comment: March 2024 echocardiogram The left ventricular systolic function is normal. The visually estimated ejection fraction is between 60-65%. - There is mild to moderately decreased right ventricular systolic function. - There is mild to moderate tricuspid valve regurgitation. - The aortic annulus and sinuses of valsalva are normal in size. History of ascending aortic graft. Code(s): I10 - Essential (primary) hypertension Category: Medical Plan: Continue with blood pressure medication. Decrease salt intake and exercise on metoprolol 100 mg once a day (3) Pure hypercholesterolemia: Code(s): E78.00 - Pure hypercholesterolemia, unspecified Category: Medical Plan: Avoid fried foods, chicken skin, eggs, butter margarine, pastries and meat. Be it pork or beef they have a lot of cholesterol LDL goal of less than 100 and triglyceride of less than 150 on atorvastatin 20 mg once a day (4) Generalized anxiety disorder: Comment: decline phone counselling Code(s): F41.1 - Generalized anxiety disorder Category: Medical Plan: Stable (5) S/P ascending aortic aneurysm repair: Comment: Repair done 2009 now 10/2024 has 5.2-5.3 surveillance (Dr. Mosquera) Code(s): Z98.890 - Other specified postprocedural states; Z86.79 - Personal history of other diseases of the circulatory system Category: Surgical Plan: Continue to monitor. Patient did see the thoracic surgeon. Plan - Continue surveillance of the aortic arch and descending thoracic aneurysm; recommend CT chest imaging for monitoring. - Maintain current hypertension management with metoprolol 100 mg daily. - Advise continuation of atorvastatin 20 mg daily; focus on dietary changes to lower LDL further. - Encourage weight management strategies and regular exercise to address obesity. - Discuss dietary modifications to manage mildly elevated blood sugar; emphasize reduction of carbohydrates and sugars. - Ensure osteoporosis management with regular bone density evaluations; discuss potential therapies if significant changes occur. - Monitor and manage generalized anxiety disorder as per current plan; recommend psychological support as needed. - Continue managing COPD with current interventions; ensure vaccinations are up-to-date to prevent respiratory infections. - Follow-up with healthcare providers for routine surveillance and preventative care advice. - Emphasize lifestyle modification for overall health improvement, including balanced nutrition, hydration, and physical activity.
--- OUTSIDE RECORDS SUMMARY | 2024-12-10 12:46 | XMS_ITS | Clinical Summary ---
Author Organization [facility] Facility Address [address] [place] [id number] Care Team Providers Care [facility] Name Role Phone Gabriella Diggs MD Primary Care Provider [phone] Allergies Active Allergy Reactions Criticality Noted Date Comments Amoxicillin 2022 Medications metoprolol succinate XL (TOPROL XL) 25 MG 24 hr tablet TAKE 1 TABLET (25 MG) BY MOUTH DAILY 2 Active estradiol (ESTRACE) 0.1 MG/GM vaginal cream See Instructions, 1 gram Vaginally at bedtime 2 times per week, # 42.5 Gm, 11 Refills, Maintenance, 10/31/20 14:28:00 EST, [id number], Patient sensitive to inactive ingredients of manufacturers drugs, 162.56, cm, 10/31/20 14:18:00 EST, Height... 1 Active docusate sodium (COLACE) 50 MG capsule Take 50 mg by mouth 4 Active atorvastatin (LIPITOR) 20 MG tablet Take 20 mg by mouth 1 (one) time each day 2 Active acetaminophen (TYLENOL) 325 MG tablet Take 325 mg by mouth 0 Active aspirin (ST ARTEMIO) 81 MG EC tablet Take 81 mg by mouth 1 (one) time each day Active [place]-3 Fatty Acids (Fish Oil) 1200 MG capsule delayed-release Take by mouth Active Cholecalciferol (Vitamin D) 50 MCG (2000 UT) capsule Take by mouth Active cyanocobalamin (VITAMIN B-12) 1000 MCG tablet Take 1,000 mcg by mouth 1 (one) time each day Active Calcium Carb-Cholecalci ferol (Calcium 600/Vitamin D3) 600-800 MG-UNIT tablet Take by mouth Active Active Problems Problem Noted Date Diagnosed Date Hyperkalemia 03/21/2022 Bladder muscle dysfunction - overactive 01/18/20 22 Constipation 2022 Hypertensive disorder 2022 Osteoarthritis 2022 Recurrent urinary tract infection 2022 Immunizations Name Administration Dates Next Due Pfizer SARS-COV-2 12/30/2020,12/09/2020 Family History Relation Status Comments Father Mother Social History Tobacco Use Types Packs/Day Years Used Date Smoking Tobacco: Never Assessed Alcohol Use Standard Drinks/Week Comments Never 0 (1 standard drink = 0.6 oz pur e alcohol) Comments Unknown Sex and Gender Information Value Date Recorded Sex Assigned at Not on file Legal Sex Female 4:41 PM EST Gender Identity Not on file Sexual Orientation Not on file Last Filed Vital Signs Vital Sign Reading Time Taken Comments Blood Pressure 127/63 03/21/2022 3:43 PM EDT Pulse 64 03/21/2022 3:43 PM EDT Temperature - - Respiratory Rate - - Oxygen Saturation 97% 03/21/2022 3:43 PM EDT Inhaled Oxygen Concentration - - Weight 78.7 kg (173 lb 9.6 oz) 03/21/2022 3:43 P M EDT Height - - Body Mass Index - - Plan of Treatment Health Maintenance Due Date Last Done Comments Pneumococcal Vaccine: 65+ Ye ars (1 of 1 - PCV) 2007 Influenza Vaccine (#1) 2024 Hepatitis B Vaccine Aged Out No longe r eligible based on patient's age to complete this topic Insurance MEDICARE [facility] MEDICARE [facility] Care Teams [facility] Relationship Specialty Start Date End Date Gabriella Diggs MD [facility] [place] [address] [place], [place] PCP - General 11/06/20
--- OUTSIDE RECORDS SUMMARY | 2024-12-10 12:46 | XMS_ITS | Continuity of Care Document ---
Author Organization [facility] Jennifer norman Address [address] [place] [address]- Care Team Providers Care Slab Depiler Operator Name Role Phone Po Gabriella CRESPO Primary Care Physician Encounter [facility] Date(s): 11/03/24 - 12/03/24 [facility] [address] [place] [address] Drive [address] [place] [address]- Attending Physician: Rosy Tobar Admitting Physician: AdmtrRosy Referring Physician: Admtr ArZana Encounter Type: Triage Allergies, Adverse Reactions, Alerts Substance Criticality Severity Reaction Reaction Severity Status amoxicillin unknown Active lisinopril unknown Active Other Food Allergy milk-GI U pset milk Active Immunizations Given and Recorded Vaccine Date Status Refusal Reason SARS-CoV-2 (COVID-19) mRNA BNT-162b2 vac 12/30/20 Given SARS-CoV-2 (COVID-19) mRNA BNT-162b2 vac 12/09/20 Given Medications ascorbic acid 1000 mg oral tablet 1 tablet = 1,000 mg, By Mouth, Daily, Maintenance, 03/31/23 4:13:00 PM EDT, Tablet, Partial fill uponpatient request if the prescription is for a schedule II opioid drug. Start Date: 03/31/23 Status: Ordered Repeat number: 1 aspirin 81 mg oral delayed release tablet 81 mg, 1, tablet, By Mouth, Daily, Maintenance, 03/31/23 4:13:00 PM EDT, Partial fill upon patient request if the prescription is for a schedule II opioid drug. Start Date: 03/31/23 Status: Ordered Repeat number: 1 atorvastatin 20 mg oral tablet 1 tablet = 20 mg, By Mouth, Daily at bedtime, 0 Refills, Maintenance, 06/05/20 12:09:00 PM EDT Start Date: 06/05/20 Status: Ordered Repeat number: 1 cholecalciferol 2000 intl units oral capsule 3000 IU, By Mouth, Daily, Maintenance, 03/31/23 4:15:00 PM EDT, Capsule, Partial fill upon patient request if the prescription is for a schedule II opioid drug. Start Date: 03/31/23 Status: Ordered Repeat number: 1 Cranberry 0 Refills, Maintenance, 09/13/24 9:35:00 AM EST, Partial fill upon patient request if the prescription is for a schedule II opioid drug. Start Date: 09/13/24 Status: Ordered Repeat number: 1 Dulcolax Stool Softener = 100 mg, By Mouth, 2 times a day, 0 Refills, Maintenance, 09/13/24 9:35:00 AM EST, Partial fill upon patient request if the prescription is for a schedule II opioid drug. Start Date: 09/13/24 Status: Ordered Repeat number: 1 Fish Oil By Mouth, 0 Refills, Maintenance, 09/13/24 9:35:00 AM EST, Partial fill upon patient request if theprescription is for a schedule II opioid drug. Start Date: 09/13/24 Status: Ordered Repeat number: 1 Hair, Skin & Nails 1 tablet, By Mouth, Daily, Maintenance, 03/31/23 4:16:00 PM EDT, Partial fill upon patient request ifthe prescription is for a schedule II opioid drug. Start Date: 03/31/23 Status: Ordered Repeat number: 1 Metoprolol Succinate ER 100 mg oral tablet, extended release By Mouth, Daily, 0 Refills, Maintenance, 04/19/24 8:01:00 AM EDT, Partial fill upon patient request if the prescription is for a schedule II opioid drug. Start Date: 04/19/24 Status: Ordered Repeat number: 1 MiraLax = 17 Gm, By Mouth, Daily, 0 Refills, Maintenance, 09/13/24 9:36:00 AM EST, Partial fill upon patient request if the prescription is for a schedule II opioid drug. Start Date: 09/13/24 Status: Ordered Repeat number: 1 Multivitamin 1 tablet, By Mouth, Daily, 0 Refills, Maintenance, 08/13/10 10:12:56 PM EDT Start Date: 08/13/10 Status: Ordered Repeat number: 1 Probiotic Formula 1 capsule, By Mouth, Daily, Maintenance, 03/31/23 4:15:00 PM EDT, Partial fill upon patient request if the prescription is for a schedule II opioid drug. Start Date: 03/31/23 Status: Ordered Repeat number: 1 Tylenol 325 mg oral capsule 1 capsule = 325 mg, By Mouth, 3 times a day, 0 Refills, Maintenance, 10/13/24 1:53:00 PM EST, Partial fill upon patient request if the prescription is for a schedule II opioid drug. Start Date: 10/13/24 Status: Ordered Repeat number: 1 Vitamin B12 = 1,000 mcg, By Mouth, Daily, Maintenance, 03/31/23 4:15:00 PM EDT, Partial fill upon patient requestif the prescription is for a schedule II opioid drug. Start Date: 03/31/23 Status: Ordered Repeat number: 1 Problem List Condition Confirmation Course Effective Dates Status H ealth Status Informant Constipation Confirmed Active Hypertension Confirmed Active Mixed incontinence Confirmed Active Obese class I Confirmed Active Osteoarthritis Confirmed Active Overactive bladder Confirmed Active Post herpetic neuralgia Confirmed Active Recurrent UTI - urinary tract infection Confirmed Active Vulvitis Confirmed Active Social History Social History Type Response Smoking Status Former smoker, quit more than 30 days ago entered on: 01/04/20 Sex Sex Representation Female (finding) Cardiology * Event Display: Cardiology Office Note, Non-BH Authored Date: * Event Display: Cardiology Office Note, Non- Authored Date: * Event Display: Non Cardiovascular Results Authored Date: * Event Display: Non Cardiovascular Results Authored Date: * Event Display: Non Cardiovascular Results Authored Date: Patient Care team information Care Team Personnel Name: Ayana Pimentel RN Position: S ED RN W/OE and Tasks Member Role: Primary Care Nurse Name: Gabriella Diggs MD Position: Reference Physician Member Role: PCP Address: [address] [place] [address] Telecom: Name: Yifan Bowles RN Position: S RN Member Role: Primary Care Nurse Care Team Related Persons Name: FLAVIA ELDRIDGE Name: CORINE ELDRIDGE Insurance Providers Guarantor name: BRIE JAZMYN Health Plan Information #: 1 Payer: MEDICARE PART B OUTPT Member Number: NA Policy Number: NA Group Number: NA Health Plan Information #: 2 Payer: MEDEX Member Number: NA Policy Number: NA Group Number: NA
--- OUTSIDE RECORDS SUMMARY | 2024-12-10 12:46 | XMS_ITS | Continuity of Care Document ---
Author Organization [facility] Jennifer norman Address [address] [place] [address]- Care Team Providers Care Harbor Tug Captain Name Role Phone Gabriella Diggs MD Primary Care Physician Encounter [facility] Date(s): 11/03/24 - 11/10/24 [facility] Surgery [address] [place] [address] Drive [address] [place] [address]- Attending Physician: Wilmer Mosquera MD Referring Physician: Gabriella Diggs MD Encounter Type: Office Visit Allergies, Adverse Reactions, Alerts Substance Criticality Severity [...] Mouth, Daily at bedtime, 0 Refills, Maintenance, 8/10/20 12:09:00 PM EDT Start Date: 06/05/20 Status: [...] on: 01/04/20 Sex Sex Representation Female (finding) Note * Event Display: [facility] Office Note Authored Date: [id number] OFFICE NOTE DATE: 11/03/2024 TELEPHONE VISIT NOTE REASON FOR VISIT: Follow-up of ascending aortic aneurysm. HISTORY OF PRESENT ILLNESS: The patient is an 84-year-old female with a known aortic aneurysm, who had ascending repair in 2009 and had been followed on an annual basis up until 2018. She was lost tofollow up during the COVID-19 pandemic. She re-presented to our office last year and her proximal descending aorta was enlarged close to 5 cm or so in that range and had a repeat study, although noncontrast, in August of last year. The aorta seemed to have enlarged, although it was difficult to tell given the absence of contrast; so a new contrast scan was ordered. This was just completed abouta month or so ago. She denies any chest pain, back pain, shortness of breath or really any other complaints. She does remain active. I was able to review this new contrast scan and her aorta is, in fact, enlarged and slightly over 5 cm close to 5.3 in the proximal descending aorta; however, it doesnot look different than it did last year and maybe only a mm or two bigger than it was in 2018. PAST MEDICAL, SURGICAL, SOCIAL HISTORIES: Reviewed and unchanged. PHYSICAL EXAMINATION: Deferred as this is a phone visit. IMAGING: CT scan is as described; I did personally review these images. 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 It does not appear different than it did last year and only minimally larger than 2018. At this point, given her advanced age and the magnitude of the surgery, which would entail a redo sternotomy, circulatory arrest with total arch replacement and TEVAR extension down the descending aorta, I think the risks of that surgery outweigh the potential benefits for someone her age. I discussed this with the patient and she agrees. Therefore, we have decided to continue with surveillance and have ordered a repeat CTA of the chest in 1 year. Thank you for this referral. Dictated by: Wilmer Mosquera MD Signing Clinician: Wilmer Mosquera MD Dictated: 11/03/2024 04:21:00 Transcribed: 03:44:55 PM Transcribed by: [facility] DocID: [id number] PRELIMINARY REPORT UNLESS MANUALLY/ELECTRONICALLY SIGNED cc: Gabriella Diggs M.D. [facility] Internal Medicine [address] [place] [address] [address] [place], [address] Patient Care team information Care Team Personnel Name: Ayana Pimentel RN Position: S ED RN W/OE and Tasks Member Role: Primary Care Nurse Name: Gabriella Diggs MD Position: Reference Physician Member Role: PCP Address: [address] [place] [address]- Telecom: Name: Yifan Bowles RN Position: S RN Member Role: Primary Care Nurse Care Team Related Persons Name: FLAVIA ELDRIDGE Name: CORINE ELDRIDGE Insurance Providers Guarantor name: MICAH ELDRIDGE Health Plan Information #: 1 Payer: MEDICARE PART B OUTPT Member Number: [id number] Policy Number: MARGRAET Group Number: MARGARET Health Plan Information #: 2 Payer: MEDEX Member Number: [id number] Policy Number: MARGARET Group Number: MARGARET
--- OUTSIDE RECORDS SUMMARY | 2024-12-10 12:46 | XMS_ITS | Continuity of Care Document ---
Author Organization [facility] Jennifer norman Address [address] [place] [address]- Care Team Providers Care Hospital Medical Assistant Name Role Phone Po Gabriella CRESPO Primary Care Physician Encounter [facility] Date(s): 10/06/24 - 11/12/24 [facility] Cardiac Surgery [address] [place] [address] Drive [address] [place] [address]- Attending Physician: Wilmer Mosquera MD Encounter Type: Pre Office Visit Allergies, Adverse Reactions, Alerts Substance Criticality Severity Reaction Reaction Severity Status amoxicillin unknown Active Other Food Allergy milk-GI U pset milk Active lisinopril unknown Active Immunizations Given and Recorded Vaccine Date [...] tract infection Confirmed Active Vulvitis Confirmed Active Vital Signs Most recent to oldest [Reference Range]: 1 Height 160 cm (10/13/24 1:50 PM) Weight 81.8 kg (10/13/24 1:50 PM) Oxygen Saturation [94-100 %] 97 % (10/13/24 1:50 PM) Pulse Rate [55-90 bpm] 65 bpm (10/13/24 1:50 PM) Body Mass Index [18.5-24.99 kg/m2] 31.95 kg/m2 *>HHI* (10/13/24 1:50 PM) Blood Pressure [90-138/55-84 mm Hg] 146/ 94mm Hg *H* (10/13/24 1:50 PM) Respiratory Rate [16-30 br/min] 16 br/mi n (10/13/24 1:50 PM) Temperature [96.8-100.4 DegF] 98.8 DegF (10/13/24 1:50 PM) Mode of Delivery (Oxygen) Room air (10/13/24 1:50 PM) Blood pressure sites Arm, right (10/13/24 1:50 PM) Temperature Route Oral (10/13/24 1:50 PM) Dry Weight 81.8 kg (10/13/24 1:50 PM) Weight Obtained Via Standing scale (10/13/24 1:50 PM) Dry Weight Obtained Via Standing scale (10/13/24 1:50 PM) Social History Social History Type Response Smoking Status Former smoker, quit more than 30 days ago entered on: 01/04/20 Sex Sex Representation Female (finding) Patient Care team information Care Team Personnel Name: Ayana Pimentel RN Position: [facility] ED RN W/OE and Tasks Member Role: Primary Care Nurse Name: Gabriella Diggs MD Position: Reference Physician Member Role: PCP Address: [address] [place] [address] Telecom: Name: Yifan Bowles RN Position: S RN Member Role: Primary Care Nurse Care Team Related Persons Name: FLAVIA ELDRIDGE Name: CORINE ELDRIDGE Insurance Providers Guarantor name: BRIE JAZMYN Health Plan Information #: 2 Payer: MEDEX Member Number: [id number] Policy Number: NA Group Number: NA Health Plan Information #: 1 Payer: MEDICARE PART B OUTPT Member Number: [id number] Policy Number: NA Group Number: NA
== END 2024-12-10 12:59 | disposition home or self-care (01) ==
PROVIDERS: PCP Internal Medicine; Visit Provider Internal Medicine
DX: J44.9 Chronic obstructive pulmonary disease, unspecified (principal); I10 Essential (primary) hypertension; E78.00 Pure hypercholesterolemia, unspecified; F41.1 Generalized anxiety disorder; Z98.890 Other specified postprocedural states; Z86.79 Personal history of other diseases of the circulatory system

== ENCOUNTER → 2024-12-10 12:19 | Outpatient (BNVA) | payer MEDICARE, SELFPAY | PROVIDERS: PCP Internal Medicine; Visit Provider Internal Medicine | DX: J44.9 Chronic obstructive pulmonary disease, unspecified (principal); I10 Essential (primary) hypertension; E78.00 Pure hypercholesterolemia, unspecified; F41.1 Generalized anxiety disorder; Z98.890 Other specified postprocedural states; Z86.79 Personal history of other diseases of the circulatory system | CPT/HCPCS: 99212 ==

== ENCOUNTER 2025-03-10 12:12 | Outpatient (AMB) | payer MEDICARE, SELFPAY ==
--- NOTE | 2025-03-10 12:29 | A.OFFVIS_ITS ---
Vital Signs 03/10/25 12:31 Height 5 ft 2 in Weight 182 lb 1.629 oz BMI 33.3 BP 130/64 Blood Pressure Location Lt brachial Position Sitting Pulse 62 Pulse Source Monitor Intake Visit Reasons: 6m follow up Shearing Shed Hand Required: No Accompanied by: Daughter Allergies amoxicillin [AMOXICILLIN] Allergy (Mild, Verified 12/10/24 12:27) UNKNOWN-HAPPENED IN OR 2009 milk [MILK] Allergy (Unknown, Verified 12/10/24 12:27) DIARRHEA lisinopril Adverse Reaction (Intermediate, Verified 12/10/24 12:27) hyperkalemia Medication List - Last Reconciled 03/10/25 by Pool Nguyen MD acetaminophen 325 mg PO Q6H ascorbic acid (vitamin C) 1,000 mg PO Q6H aspirin (Adult Aspirin Regimen) 81 mg PO DAILY atorvastatin 20 mg PO DAILY cholecalciferol (vitamin D3) 75 mcg (3 x 25 mcg (1,000 unit)) PO DAILY cyanocobalamin (vitamin B-12) 100 mcg PO DAILY docusate sodium (Colace) 100 mg PO DAILY thbufyux-mesb-wuv3-C-suzie-bosw 750 mg-644 mg- 30 mg-1 mg 1 tab PO DAILY hydrocortisone 2.5% (Proctosol HC) 1 appl KY BID-QID PRN metoprolol succinate ER 100 mg PO DAILY 90 days multivitamin 1 tab PO DAILY ondansetron 4 mg PO Q8H PRN polyethylene glycol 3350 (Miralax) 17 grams PO DAILY HPI Comments Details: Kayla returns for follow-up. To recall, she had surgery for aortic aneurysm in 2009. Per operative note, she had repair of ascending aortic aneurysm with aortic graft. 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 Then she saw [facility] for some time but not anymore. She switch to our care. Since last seen, she is fine for the most part. Patient herself denies any symptoms but according to daughter, she is walking with a shuffling gait and she is feeling short of breath with activity. However, patient states she actually feels well. Hence this is discrepancy between their history. She denies any chest pains like angina. She also concurrently follows up with Cardiac surgery at [facility]. [facility] Medical History (Updated 09/27/24 @ 14:29 by Gabriella Diggs MD) Dysuria Breast cancer screening by mammogram Low back pain Arthritis COVID-19 vaccine series completed Pure hypercholesterolemia Benign essential hypertension Cataracts, bilateral Acute meniscal tear of right knee Urge incontinence Overweight (BMI 25.0-29.9) Aortic aneurysm COPD (chronic obstructive pulmonary disease) Valvular heart disease Obstructive sleep apnea Anemia Surgical History Hx of colonoscopy History of urologic surgery History of bladder surgery History of arthroscopy of right knee History of ankle surgery Status post resection of aortic aneurysm History of cholecystectomy Family History Father No problems noted. Mother Hypertension CVD (cardiovascular disease) Family/Other Diabetes CAD (coronary artery disease) Social History Housing: House Alcohol intake: never Patient Tobacco Use Status: Former Tobacco user Tobacco use type: Cigarette Years Smoked: stopped 52 years old e-Cigarette/Vaping Use: Never Used Second Hand Smoke Exposure: No Current occupational status: retired Cognitive needs: No Hearing needs: No Vision needs: Yes Review of Systems Const Denies chills, Denies fatigue, Denies fever(s), Denies frequent falls, Denies weakness, Denies weight gain and Denies weight loss ENT Denies dizziness Card Denies chest pain, Denies leg edema, Denies lightheadedness, Denies palpitations, Reports dyspnea and Reports dyspnea on exertion Resp Denies cough, Reports dyspnea and Reports dyspnea on exertion GI Denies hematochezia Musc Denies abnormal gait, Denies muscle weakness, Denies numbness, Denies radiating pain into limb and Denies tingling Neuro Denies abnormal gait, Denies dizziness, Denies frequent falls, Denies numbness, Denies tingling and Denies weakness Endo Denies fatigue and Denies palpitations Physical Exam Vital Signs: Last Vital Signs Pulse 62 03/10/25 12:31 BP 130/64 03/10/25 12:31 BMI result Body Mass Index 33.3 Const General: comfortable and no acute distress Orientation/consciousness: patient oriented x3 HEENT Other: Unremarkable Head: Yes normal to inspection Neck Neck: Yes normal visual inspection Chest Chest palpation & inspection: normal inspection of the chest Resp Auscultation: clear to auscultation bilaterally Cardio Palpation: normal PMI Heart sounds: S1 normal heart sound present, S2 normal heart sound present, no gallops, Murmur heart sound present systolic II/ and no rubs GI Palpation (GI): Soft to palpation Back/Spine/Pelvis Other: unremarkable Skin General skin exam: no rashes or lesions noted Neuro General: patient oriented x3 Extrem General: Yes normal to inspection Psych Mental Status: mental status grossly normal Office Procedures EKG Details: EKG with underlying sinus rhythm at 62/Min; supraventricular ectopy; [place] prolongation to 248 milliseconds; [place]. [id number], Complete Assessment & Plan Assessment & Plan (1) S/P ascending aortic aneurysm repair: Comment: Repair done 2009 now 10/2024 has 5.2-5.3 surveillance (Dr. Mosquera) Code(s): Z98.890 - Other specified postprocedural states; Z86.79 - Personal history of other diseases of the circulatory system Category: Surgical Plan: Per operative note from 2009, she had repair of ascending aortic aneurysm with Hemashield aortic graft. Per recent cardiac surgery note 10/2024, has aortic arch and descending thoracic aneurysm about 5.2-5.3 cm in largest diameter. Only minimally enlarged compared 2018. Conservative management has been planned because of high-risk surgery. Avoid strenuous exertion as well as maintain good blood pressure control. 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 Right coronary artery could not be imaged well due to anterior origin but no obvious obstructive disease. Clinically, she has got no angina. Considering his age and comorbidities, no specific workup for now. (3) Right ventricular enlargement: Code(s): I51.7 - Cardiomegaly Category: Medical Plan: In the last echocardiogram, LVEF 60-65%. Right ventricle not well visualized but thought to be dilated with reduced function. Patient denies any symptoms but daughter states patient has shortness of breath with activity. I am not clear if it is just deconditioning or not. Could also be related to lower extremity weakness as she walks apparently with a shuffling gait. Hence we will recheck echocardiogram. (4) Atrial arrhythmia: Code(s): I49.8 - Other specified cardiac arrhythmias Category: Medical Plan: Supraventricular ectopy on EKG. Can be followed periodically. (5) Benign essential hypertension: Comment: March 2024 echocardiogram The left ventricular systolic function is normal. The visually estimated ejection fraction is between 60-65%. - There is mild to moderately decreased right ventricular systolic function. - There is mild to moderate tricuspid valve regurgitation. - The aortic annulus and sinuses of valsalva are normal in size. History of ascending aortic graft. Code(s): I10 - Essential (primary) hypertension Category: Medical Plan: Stable. Plan Discussion Notes I discussed the patient's gait abnormality and breathing difficulties, highlighting the need for neurological evaluation. The connection between gait issues and neurological causes such as neuropathy was explored. Patient and family felt they would rather just speak to PCP about this. I explained the current stable status of the aortic aneurysm, detailing surgical risks and the rationale for ongoing conservative management. We reviewed symptoms of potential complications requiring prompt attention. Follow-up plans include regular monitoring of heart health and aneurysm progression. Patient was informed and verbally consented to the use of an ambient scribe for clinic note documentation during this visit. Orders: Orders CA echo transthoracic complete Today Z86.79 - Personal history of other diseases of the circulatory system, Z98.890 - Other specified postprocedural states Patient Instructions: - Consider neurology appointment for further evaluation of walking issues. - Schedule an echocardiogram to check heart function. - Elevate legs to reduce swelling, especially at the end of the day. - Continue to engage in safe exercise activities, such as gardening and swimming. - Contact the office if swelling increases or new symptoms appear. - Follow up as advised to monitor heart and vascular health. 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
[2025-03-10 12:31] VITALS: BP 130/64; PULSE 62; BMI 33.3
--- OUTSIDE RECORDS SUMMARY | 2025-03-10 13:08 | XMS_ITS | Clinical Summary ---
Author Organization [facility] Address [address] [place] [address] Care Team Providers Care Ticket Worker Name Role Phone Gabriella Diggs MD Primary Care Provider [phone] Allergies Active Allergy Reactions Criticality Noted Date [...] mouth 1 (one) time each day Active Clifford-3 Fatty Acids (Fish Oil) 1200 MG capsule [...] 2022 Recurrent urinary tract infection 2022 Immunizations Immunization Administration Dates Next Due Pfizer SARS-COV-2 12/30/2020,12/09/2020 [...] Due Date Last Done Comments Pneumococcal Vaccine: 50+ Ye ars (1 of - PCV) 01/18/1992 Influenza Vaccine (Season Ended) 2025 Hepatitis B Vaccine Aged Out No longe r eligible based on patient's age to complete this topic Insurance Medicare [facility] Medicare [facility] Care Teams Ticket Worker Relationship Specialty Start Date End Date Gabriella Diggs MD [facility] [address] [place], [place] PCP - General 11/06/20
== END 2025-03-10 12:55 | disposition home or self-care (01) ==
LOC: HO.HCS 12:13
PROVIDERS: PCP Internal Medicine; Visit Provider Internal Medicine
DX: Z98.890 Other specified postprocedural states (principal); Z86.79 Personal history of other diseases of the circulatory system; Q24.5 Malformation of coronary vessels; I51.7 Cardiomegaly; I49.8 Other specified cardiac arrhythmias; I10 Essential (primary) hypertension
CPT/HCPCS: 93010; 99214; G2211

== ENCOUNTER → 2025-03-10 12:12 | Outpatient (BNVA) | payer MEDICARE, SELFPAY | PROVIDERS: PCP Internal Medicine; Visit Provider Internal Medicine | DX: I10 Essential (primary) hypertension (principal); I51.7 Cardiomegaly; I49.8 Other specified cardiac arrhythmias; Q24.5 Malformation of coronary vessels; Z87.891 Personal history of nicotine dependence; Z86.79 Personal history of other diseases of the circulatory system; Z98.890 Other specified postprocedural states | CPT/HCPCS: 93005; 99212 ==

== ENCOUNTER 2025-03-16 11:58 | Outpatient (AMB) | payer MEDICARE, SELFPAY ==
--- NOTE | 2025-03-16 12:19 | A.OFFVIS_ITS ---
Intake Vital Signs 03/16/25 12:23 Height 5 ft 2 in Weight 177 lb BMI 32.4 BP 130/78 Blood Pressure Location Lt brachial Position Sitting Pulse 52 Pulse Source Pulse Oximeter Pulse Oximetry (%) 97 Oxygen Delivery Method Room Air Intake Visit Reasons: awv Allergies amoxicillin [AMOXICILLIN] Allergy (Mild, Verified 03/16/25 12:23) UNKNOWN-HAPPENED IN OR 2009 milk [MILK] Allergy (Unknown, Verified 03/16/25 12:23) DIARRHEA lisinopril Adverse Reaction (Intermediate, Verified 03/16/25 12:23) hyperkalemia Medication List - Last Reconciled 03/16/25 by Gabriella Diggs MD acetaminophen 325 mg PO Q6H ascorbic acid (vitamin C) 1,000 mg PO Q6H aspirin (Adult Aspirin Regimen) 81 mg PO DAILY atorvastatin 20 mg PO DAILY cholecalciferol (vitamin D3) 75 mcg (3 x 25 mcg (1,000 unit)) PO DAILY cyanocobalamin (vitamin B-12) 100 mcg PO DAILY docusate sodium (Colace) 100 mg PO DAILY [id number]-[id number] 750 mg-644 mg- 30 mg-1 mg 1 tab PO DAILY hydrocortisone 2.5% (Proctosol HC) 1 appl [place] BID-QID PRN metoprolol succinate ER 100 mg PO DAILY 90 days multivitamin 1 tab PO DAILY polyethylene glycol 3350 (Miralax) 17 grams PO DAILY HPI awv HPI Details [place] of care cardiology Dr. Nguyen, [facility] cardiac surgeons pain management SV pain management nephrology renal transplant vascular Dr. Hayden Ophthalmology Dr. Paul. surgery planned overactive bladder interstim Dr. Viveros Ceredo April 15, 2025, then 03/2027 [facility] Medical History (Updated 09/27/24 @ 14:29 by Gabriella Diggs MD) Dysuria Breast cancer screening by mammogram Low back pain Arthritis COVID-19 vaccine series completed Pure hypercholesterolemia Benign essential hypertension Cataracts, bilateral Acute meniscal tear of right knee Urge incontinence Overweight (BMI 25.0-29.9) Aortic aneurysm COPD (chronic obstructive pulmonary disease) Valvular heart disease Obstructive sleep apnea Anemia Surgical History Hx of colonoscopy History of urologic surgery History of bladder surgery History of arthroscopy of right knee History of ankle surgery Status post resection of aortic aneurysm History of cholecystectomy Family History Father No problems noted. Mother Hypertension CVD (cardiovascular disease) Family/Other Diabetes CAD (coronary artery disease) Social History Housing: House Alcohol intake: never Patient Tobacco Use Status: Former Tobacco user Tobacco use type: Cigarette Years Smoked: stopped 52 years old e-Cigarette/Vaping Use: Never Used Second Hand Smoke Exposure: No Current occupational status: retired Cognitive needs: No Hearing needs: No Vision needs: Yes Questionnaire Medicare Wellness Checkup What is your age?: 80 or older What gender do you identify with?: female During the past 4 weeks, how much have you been bothered by emotional problems such as feeling anxious, depressed, irritable, sad or downhearted, and blue?: moderately During the past 4 weeks, has your physical & emotional health limited your social activities with family, friends, neighbors, or groups?: slightly During the past 4 weeks, how much bodily pain have you generally had?: moderate pain During the past 4 weeks, was someone available to help you if you needed & wanted help?: yes, some During the past 4 weeks, what was the hardest physical activity you could do for at least 2 minutes?: moderate Can you get to places out of walking distance without help? (For eg., can you travel alone on buses, taxis or drive your car?): Yes Can you go shopping for groceries or clothes without someone's help?: Yes Can you prepare your own meals?: Yes Can you do your housework without help?: Yes Because of any health problems, do you need the help of another person with your personal care needs such as eating, bathing, dressing or getting around the house?: No Can you handle your own money without help?: Yes During the past 4 weeks, how would you rate your health in general?: very good During the past 4 weeks how have things been going for you?: pretty well Are you having difficulties driving your car?: no Do you always fasten your seat belt when you are in a car?: yes, usually During past 4 weeks, have you been bothered by the following: never: Falling or dizzy when standing up, Sexual problems?, Trouble eating well? and Problems using the telephone? and sometimes: Teeth or denture problems? and Tiredness or fatigue? Have you fallen 2 or more times in the past year?: No Are you afraid of falling?: No Are you a smoker?: no During the past 4 weeks, how many drinks of wine, beer, or other alcoholic beverages did you have?: no alcohol at all Do you exercise for about 20 minutes 3 or more times a week?: yes, most of the time Have you been given information to help with the following?: no: Hazards in your house that might hurt you? and no: Keeping track of your medications? How often do you have trouble taking medicines the way you have been told to take them?: I always take medicine as prescribed How confident are you that you can control & manage most of your health problems?: very confident What is your race?: White PHQ-9 Over the last 2 weeks, how often have you been bothered by any of the following problems? 1. Little interest or pleasure in doing things: not at all 2. Feeling down, depressed, or hopeless: several days 3. Trouble falling or staying asleep, or sleeping too much: more than half the days 4. Feeling tired or having little energy: more than half the days 5. Poor appetite or overeating: more than half the days 6. Feeling bad about yourself - or that you are a failure or have let yourself or your family down: not at all 7. Trouble concentrating on things, such as reading the newspaper or watching television: not at all 8. Moving or speaking so slowly that other people could have noticed. Or the opposite - being so fidgety or restless that you have been moving around a lot more than usual: not at all 9. Thoughts that you would be better off or of hurting yourself in some way: not at all Total score: 7 Depression Screening Interpretation: Positive Depression Screening Done: Yes 84695 - PHQ-9 Billing: Yes Source: Developed by Drs. Don Dasilva, Kaitlin Logan, Joshua Platt and colleagues, with an educational jose angel from [employer]. Thrive Questionnaire Date Thrive assessed: 12/10/24 JENNIFER-7 AMB Questionnaire JENNIFER-7 Date JENNIFER - 7 assessed: 12/10/24 Source: Developed by Drs. Don Dasilva, Kaitlin Logan, Joshua Platt and colleagues, with an educational jose angel from [employer]. Review of Systems Const Denies poor appetite and Denies weakness Eyes Denies no additional complaints ENT Reports Normal hearing present, Denies dizziness, Denies nasal congestion, Denies tinnitus and Denies sore throat Card Denies chest pain, Denies syncope, Denies rapid heart rate and Denies dyspnea Resp Denies cough and Denies dyspnea GI Denies change in stool character, Reports constipation, Denies diarrhea, Denies nausea and Denies vomiting Denies urinary frequency, Denies difficulty voiding and Denies dysuria Neuro Reports Normal hearing present, Denies confusion, Denies dizziness, Denies syncope and Denies weakness Psych Denies confusion Physical Exam Vital Signs: Last Vital Signs Pulse 52 03/16/25 12:23 BP 130/78 03/16/25 12:23 Pulse Ox 97 03/16/25 12:23 Oxygen Delivery Method Room Air 03/16/25 12:23 BMI result Body Mass Index 32.4 Const General: No confusion Orientation/consciousness: No confusion HEENT Head: Yes normocephalic Ears: external ears normal and TM's normal bilaterally Face and sinus: Yes normal facial exam Mouth: moist mucous membranes Throat: Yes tonsils normal Eyes Conjunctivae: conjunctivae normal Pupils: Equal, round and reactive pupils present and Pupil accommodation reflex normal Direct Ophthalmoscopy: normal light reflex Neck Neck: No lymphadenopathy Thyroid: Thyroid normal Chest Chest palpation & inspection: normal inspection of the chest Resp Effort & Inspection: normal respiratory effort and no audible wheezes Auscultation: clear to auscultation bilaterally, no crackles, no wheezes and lung sounds not diminished Cardio Rate: regular rate Rhythm: regular rhythm Peripheral pulses: radial pulses present and dorsalis pedis present GI Other: declined rectal exam Palpation (GI): no masses Auscultation: normal bowel sounds and normoactive bowel sounds Rectal Exam - Female: deferred Skin General skin exam: no rashes or lesions noted Rashes: no rashes Neuro General: No confusion Cranial nerves: Yes Equal, round and reactive pupils present and Yes Normal hearing present Cognition (Neuro): normal cognition Gait exam (Neuro): Normal gait present Motor exam (neuro): 5/5 motor strength present throughout Deep tendon reflexes (DTR's): Right brachioradialis reflex intensity grade: 2+, Left brachioradialis reflex intensity grade: 2+, Right patellar reflex intensity grade: 2+ and Left patellar reflex intensity grade: 2+ Extrem General: No edema Assessment & Plan Assessment & Plan (1) Medicare annual wellness visit, subsequent: Code(s): Z00.00 - Encounter for general adult medical examination without abnormal findings Plan: Patient is advised to eat healthy, keep well hydrated, keep active and have adequate sleep. (2) COPD (chronic obstructive pulmonary disease): Code(s): J44.9 - Chronic obstructive pulmonary disease, unspecified Qualifiers: COPD type: unspecified COPD Qualified Code(s): J44.9 - Chronic obstructive pulmonary disease, unspecified Plan: Stable with no inhaler needed (3) Benign essential hypertension: Comment: March 2024 echocardiogram The left ventricular systolic function is normal. The visually estimated ejection fraction is between 60-65%. - There is mild to moderately decreased right ventricular systolic function. - There is mild to moderate tricuspid valve regurgitation. - The aortic annulus and sinuses of valsalva are normal in size. History of ascending aortic graft. Code(s): I10 - Essential (primary) hypertension Plan: Continue with blood pressure medication. Decrease salt intake and exercise on metoprolol 100 mg once a day (4) Pure hypercholesterolemia: Code(s): E78.00 - Pure hypercholesterolemia, unspecified Plan: Avoid fried foods, chicken skin, eggs, butter margarine, pastries and meat. Be it pork or beef they have a lot of cholesterol LDL goal of less than 130 and triglyceride of less than 150 on atorvastatin (5) Post herpetic neuralgia: Comment: Right upper back Code(s): B02.29 - Other postherpetic nervous system involvement Plan: Patient has gone to pain management conservative treatment (6) Generalized anxiety disorder: Comment: decline phone counselling Code(s): F41.1 - Generalized anxiety disorder Plan: Stable (7) S/P ascending aortic aneurysm repair: Comment: Repair done 2009 now 10/2024 has 5.2-5.3 surveillance (Dr. Mosquera) Code(s): Z98.890 - Other specified postprocedural states; Z86.79 - Personal history of other diseases of the circulatory system Plan: Continuing to monitor surveillance under surgeon. Plan History of Present Illness The patient is an 85-year-old female presenting for her annual wellness visit. She reports a stable history of COPD, currently without the need for inhaler use, and a noted 5-pound weight loss. The patient has managed essential hypertension with metoprolol 100 mg daily and addresses hypercholesterolemia through atorvastatin while aiming to maintain her LDL and triglyceride levels within targeted limits. She is preparing for an upcoming surgery to address overactive bladder symptoms. The patient previously smoked heavily, which contributed to her COPD, but it has been 33 years since she last smoked. Her previous aorta repair and peripheral vascular disease are noted, with continued monitoring necessary. The anxiety disorder and postoperative neuralgia are of record, with the latter causing discomfort in the right upper back region. The patient regularly takes several medications and supplements, including Tylenol, aspirin, and vitamin C, reporting occasional use of glucose and sodium for constipation management. While facing challenges with hearing due to earwax buildup, she denies any significant changes or new symptoms aside from issues related to substantial earwax. The patient maintains routine health screenings and vaccinations up to date, consistent with her age and medical history. Health Maintenance - Colonoscopy: Last performed in 2013 - Bone Density: Last screening in August 2024 - Mammogram: Last conducted in February 2024 - Flu Vaccination: Current as of this season - Pneumonia Vaccination: Up-to-date - Shingles Vaccination: Completed - Management goal for LDL: <130 mg/dL, Triglycerides: <150 mg/dL Social History - Former smoker, ceased smoking 33 years ago - Daily intake of Tylenol, aspirin, vitamin C, sodium for constipation, and occasional glucose - Concerns regarding dietary intake affecting gastric symptoms, particularly with cheese Review of Systems - Respiratory: Denies recent respiratory symptoms but reports difficulty climbing stairs - Cardiovascular: Denies chest pain - Gastrointestinal: Denies heartburn; reported constipation managed with sodium - Genitourinary: Plans for surgery due to overactive bladder, frequent nighttime urination - Neurological: Reports postoperative neuralgia in the right upper back - Musculoskeletal: No significant musculoskeletal complaints - Ear/Nose/Throat: Reports hearing issues due to significant earwax accumulation Physical Exam General: Cooperative, healthy appearing, comfortable, no acute distress and well developed Orientation: Patient oriented x3 Limitations: No limitations Head: Normal to inspection Ears: Hearing grossly normal bilaterally, but a lot of ear wax present Nose: Normal external nose present Face and sinus: Normal facial exam Eyes: Appearance normal, both eyes and all related structures Neck: Normal visual inspection and Yes full ROM Respiratory: Normal respiratory effort, but patient reports difficulty with stairs due to breathing issues. Clear to auscultation bilaterally Cardiovascular: Regular rate and rhythm. Normal S1 and S2 GI: Normal to inspection. Soft to palpation and nontender Skin: No rashes or lesions noted Neuro: Patient oriented x3 Extremities: Normal to inspection Results - Labs: Last bloodwork conducted in 2023 Plan The patient will continue current management of hypertension with metoprolol and hypercholesterolemia with atorvastatin. Preparations are made for an upcoming surgery for overactive bladder. Her conservative management of postoperative neuralgia continues, and earwax issues will be addressed as appropriate. Sustained emphasis on maintaining current vaccination status and addressing di etary concerns is advised. Continue regular monitoring with follow-up visits as needed. Patient was informed and verbally consented to the use of an ambient scribe for clinic note documentation during this visit. Discussion Notes I discussed the patient's conditions, including COPD, hypertension, and hypercholesterolemia management strategies. We reviewed the upcoming bladder surgery, and I explained the significance of regular screenings and health maintenance, highlighting the need for a future colonoscopy. Addressed earwax accumulation and discussed potential otologic evaluation. We reviewed medication adherence and encouraged dietary monitoring for overall health improvement. Clearly outlined follow-up plans, including post-surgery care, and ensured understanding of health maintenance importance. Patient Instructions - Continue taking metoprolol and atorvastatin as prescribed - Prepare for scheduled bladder surgery on April 15 and - Maintain healthy dietary intake; monitor weight - Use sodium for constipation management as needed - Follow up on earwax buildup with cleaning if necessary - Stay current with vaccinations and health screenings - Schedule future colonoscopy within recommended guidelines - Provide health proxy information and ensure update if required Orders: Orders PFT pulmonary function test Today J44.9 - Chronic obstructive pulmonary disease, unspecified Referrals Psychiatry Referral F41.1 - Generalized anxiety disorder Quality Reporting (2019) Depression/Bipolar (159/160/161/177) PHQ-9: Total score: 7 Coding Level of Care Code Medicare Subsequent (G0439) Diagnoses Medicare annual wellness visit, subsequent Z00.00 Chronic obstructive pulmonary disease, unspecified COPD type J44.9 COPD type: unspecified COPD Benign essential hypertension I10 Pure hypercholesterolemia E78.00 Post herpetic neuralgia B02.29 Generalized anxiety disorder F41.1 S/P ascending aortic aneurysm repair Z98.890; Z86.79 Additional Codes PHQ-9 - 21337 - PHQ-9 Billing: Yes ([id number])
[2025-03-16 12:23] VITALS: BP 130/78; PULSE 52; O2SAT 97; BMI 32.4
--- OUTSIDE RECORDS SUMMARY | 2025-03-16 13:02 | XMS_ITS | Clinical Summary ---
Author Organization [facility] Facility Address [address] [place] [id number] Care Team Providers Care Manager Talent Acquisition Name Role Phone Gabriella Diggs MD Primary Care Provider [phone] Allergies Active Allergy Reactions Criticality Noted Date [...] mouth 1 (one) time each day Active [place]-3 Fatty Acids (Fish Oil) 1200 MG capsule [...] age to complete this topic Insurance Medicare [facility] Medicare [facility] Care Teams Manager Talent Acquisition Relationship Specialty Start Date End Date Gabriella Diggs MD [facility] [place] [address] [place], [place] PCP - General 11/06/20
== END 2025-03-16 13:00 | disposition home or self-care (01) ==
LOC: HO.HMCH 11:58
PROVIDERS: PCP Internal Medicine; Visit Provider Internal Medicine
DX: Z00.00 Encounter for general adult medical examination without abnormal findings (principal); J44.9 Chronic obstructive pulmonary disease, unspecified; I10 Essential (primary) hypertension; E78.00 Pure hypercholesterolemia, unspecified; B02.29 Other postherpetic nervous system involvement; F41.1 Generalized anxiety disorder; Z98.890 Other specified postprocedural states; Z86.79 Personal history of other diseases of the circulatory system

== ENCOUNTER → 2025-03-16 11:58 | Outpatient (BNVA) | payer MEDICARE, SELFPAY | PROVIDERS: PCP Internal Medicine; Visit Provider Internal Medicine | DX: Z00.00 Encounter for general adult medical examination without abnormal findings (principal); J44.9 Chronic obstructive pulmonary disease, unspecified; I10 Essential (primary) hypertension; E78.00 Pure hypercholesterolemia, unspecified; B02.29 Other postherpetic nervous system involvement; F41.1 Generalized anxiety disorder; Z98.890 Other specified postprocedural states; Z86.79 Personal history of other diseases of the circulatory system | CPT/HCPCS: 96127 ==

== ENCOUNTER 2025-03-30 08:19 | Outpatient (REF) | payer MEDICARE, SELFPAY ==
--- OUTSIDE RECORDS SUMMARY | 2025-03-30 08:25 | XMS_ITS | Clinical Summary ---
Author Organization [facility] Facility Address [address] [place] [address] Care Team Providers Care Profile Trimmer Name Role Phone Gabriella Diggs MD Primary Care Provider [phone] Allergies Active Allergy Reactions Criticality Noted Date [...] mouth 1 (one) time each day Active [place]-3 Fatty Acids (Fish Oil) 1200 MG capsule [...] age to complete this topic Insurance Medicare [facility] Medicare [facility] Care Teams Profile Trimmer Relationship Specialty Start Date End Date Gabriella Diggs MD [facility] [place] [address] [place], [place] PCP - General 11/06/20
[2025-03-30 08:43] LABS: MANUAL DIFF FLAG NO
[2025-03-30 08:58] LABS: Basophils Percent Auto 0.6 % (0-2); Eosinophils Absolute Auto 0.1 X10*3/uL (0.0-0.4); Eosinophils Percent Auto 1.9 % (0-4); Hematocrit 36.6 % (37.0-47.0); Hemoglobin 12.4 g/dl (12.0-16.0); Imm Gran Abs Auto 0.01 X10*3/uL (0.00-0.03); Imm Gran Pct Auto 0.1 % (0.0-0.4); Lymphocytes Absolute Auto 1.9 X10*3/uL (1.2-4.9); Lymphocytes Percent Auto 27.2 % (20-40); Mean Corpuscular HGB Conc 33.9 g/dl (31.0-35.0); Mean Corpuscular Hemoglobin 32.6 pg (27.0-33.0); Mean Corpuscular Volume 96.3 fL (80.0-98.0); Mean Platelet Volume 9.6 fL (9.4-12.3); Monocytes Absolute Auto 0.8 X10*3/uL (0.1-1.2); Monocytes Percent Auto 11.3 % (2-11); Neutrophils Absolute Auto 4.1 x10*3/uL (2.0-8.3); Neutrophils Percent Auto 58.9 % (45-73); Platelet Count 156 X10*3/uL (160-400); Red Cell Distribution Width 12.9 % (11.0-16.0); White Blood Count 6.9 X10*3/uL (4.8-10.8)
[2025-03-30 10:52] LABS: Alanine Aminotransferase 20 U/L (0-31); Albumin Level 4.5 g/dL (3.5-5.0); Anion Gap 14 (12-20); Aspartate Amino Transferase 27 U/L (5-31); Blood Urea Nitrogen 19 mg/dL (9-16); Calcium 9.9 mg/dL (8.4-10.2); Carbon Dioxide 29 mmol/L (22-29); Chloride 106 mmol/L (96-108); Cholesterol 135 mg/dL (<200); Estimated Glomerular Filt Rate > 60; Glucose Random 110 mg/dL (60-115); HDL Cholesterol 43 mg/dL (>40); LDL Cholesterol Calculated 78 mg/dL (<100); Potassium 4.6 mmol/L (3.3-5.1); Sodium 144 mmol/L (135-145); Total Protein 7.3 g/dL (6.5-8.0); Triglycerides 73 mg/dL (<150)
[2025-03-30 11:20] LABS: Free T4 (Free Thyroxine) 1.03 ng/dL (0.71-1.85); Vitamin D 25-OH Total 69.5 ng/mL (>30)
[2025-03-30 11:22] LABS: Vitamin B12 1053 pg/mL (200-900)
[2025-03-30 13:02] LABS: Alkaline Phosphatase 58 U/L (39-117)
== END 2025-03-30 08:20 | disposition home or self-care (01) ==
LOC: HO.LAB 08:19
PROVIDERS: PCP Internal Medicine; Visit Provider Internal Medicine
DX: I10 Essential (primary) hypertension (principal); E78.00 Pure hypercholesterolemia, unspecified
CPT/HCPCS: 36415; 80053; 80061; 82306; 82607; 82746; 84439; 84443; 85025

== ENCOUNTER → 2025-04-12 13:37 | Outpatient (REF) | payer MEDICARE, SELFPAY ==
--- NOTE | 2025-04-12 13:42 | CA_ITS ---
Transthoracic Echocardiogram Patient (Last, First, Middle): Kayla Leyva A Gender: Female Date of : 1940 Age: 85 Procedure Date: 04/12/2025 Procedure Type: Transthoracic Echocardiogram Location: OP Height: 157.48 cm Weight: 80.29 kg BSA: 1.81 m2 Heart Rate: bpm BP: 130 / 78 mmHg Bankruptcy Attorney: ELAINE Referring MD: Pool Nguyen MD Symptoms: Z98.890 - Other specified postprocedural states Study Quality: Fair, contrast ECG Rhythm: Sinus Conclusions: - The left ventricular systolic function is normal. The calculated ejection fraction is 63% by biplane method. - Moderately increased right ventricular cavity size. - There is mild aortic valve regurgitation. - There is moderate tricuspid valve regurgitation. 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 Findings Procedure Information Contrast agent, definity, is being given per protocol without apparent complications. Left Ventricle Normal left ventricular cavity size. The left ventricular systolic function is normal. The calculated ejection fraction is 63% by biplane method. There is no evidence of regional wall motion abnormalities. Diastolic function is normal for age. There is mild septal asymmetric hypertrophy. Right Ventricle Moderately increased right ventricular cavity size. There is mildly decreased right ventricular systolic function. Atria Moderate biatrial enlargement. Aortic Valve There is a normal trileaflet aortic valve. There is mild calcification of the aortic valve. There is no aortic valve stenosis. There is mild aortic valve regurgitation. Mitral Valve The mitral valve appears normal. There is trace mitral valve regurgitation. There is no mitral valve stenosis. Pulmonic Valve The pulmonic valve is likely normal. Tricuspid Valve There is moderate tricuspid valve regurgitation. Mild pulmonary hypertension is present. Great Vessels The sinuses of valsalva and asc aorta are normal in size. 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 (Hx of ascending aortic graft). Venous The inferior vena cava is normal in size and collapses greater than 50% with inspiration. Pericardium/Pleural There is no evidence of pericardial effusion. Prior Study Comparison No significant change compared to prior study dated: 04/12/2024. Measurements 2D Linear Measurements IVSd: 1.20 0.6-0.9/0.6-1.0 cm LVIDd: 4.02 3.9-5.3/4.2-5.9 cm LVIDd Index: 2.22 2.4-3.2/2.2-3.1 cm/m2 LVIDs: 2.66 2.0-3.6 cm LVPWd: 0.77 0.7-1.1 cm LA Diam: 4.00 2.7-3.8/3.0-4.0 cm LAIDs Index: 2.21 1.5-2.3 cm/m2 LV Mass: 155.84 67-162/88-224 g LV Mass Index: 86.10 43-95/49-115 g/m2 LVOT Diam: 2.00 3.0+(-)1.3 cm 2D Systolic Function EF 4C: 64.00 >55% EF 2C: 62.60 >55% EF BiP: 62.60 >55% Mitral Valve MV Pk E: 0.90 MV PK A: 0.58 MV Decel Time: 133.00 E/A: 1.60 E'Lateral: 11.00 E'Medial: 6.42 E/E' Med: 14.10 E/E' Lat: 8.20 PHT: 39.00 MVA PHT: 5.64 Decel [place]: 6.82 Aortic Valve AoV Pk Panchito: 1.93 AoV Mn Panchito: 1.43 AoV VTI: 0.51 AoV Pk Grad: 15.00 Aov Mn Grad: 9.00 [place] Cont.VTI: 1.55 AI Pk Panchito: 4.43 AI [place]: 2.66 LVOT LVOT Pk Panchito: 0.94 LVOT Mn Panch[place]: 0.71 LVOT VTI: 0.25 LVOT Pk Grad: 4.00 LVOT Mn Grad: 2.00 LVOT Diam: 2.00 LVOT Area: 3.14 Diastolic Function MV Pk E: 0.90 MV Pk A: 0.58 E/A: 1.60 E'Medial: 6.42 E/E' Med: 14.10 E' Laterial: 11.00 E/E' Lat: 8.20 Right Ventricle TAPSE (mm): 19.90 TVS' Panchito: 9.79 Tricuspid Valve TR Pk Panchito: 2.90 TR Pk Grad: 34.00 RA Press: 8.00 RVSP: 42.00 Great Vessels Aorta Sinus of Valsalva: 3.40 2.0-3.5 cm Ao Asc: 3.60 2.1-3.4 cm Ao Arch: 4.00 Updated in Other Vendor System with Status of Final Pool Nguyen MD electronically signed on 04/12/2025 3:29:07 PM with status of Final
--- OUTSIDE RECORDS SUMMARY | 2025-04-12 15:33 | XMS_ITS | Clinical Summary ---
Author Organization [facility] Facility Address [address] [place] [address] Care Team Providers Care Labor Delivery Rn Name Role Phone Gabriella Diggs MD Primary Care Provider [phone] Allergies Active Allergy Reactions Criticality Noted Date [...] mouth 1 (one) time each day Active [place]-3 Fatty Acids (Fish Oil) 1200 MG capsule [...] age to complete this topic Insurance Medicare [facility] Medicare [facility] Care Teams Labor Delivery Rn Relationship Specialty Start Date End Date Gabriella Diggs MD [facility] [place] [address] [place], [place] PCP - General 11/06/20
== END ==
LOC: HO.CARD 13:37
PROVIDERS: PCP Internal Medicine; Visit Provider Internal Medicine
DX: Z86.79 Personal history of other diseases of the circulatory system (principal); Z98.890 Other specified postprocedural states
CPT/HCPCS: 93306; Q9957

== ENCOUNTER → 2025-04-12 13:42 | Outpatient (BNV) | payer MEDICARE, SELFPAY | PROVIDERS: PCP Internal Medicine; Visit Provider Internal Medicine | DX: I42.2 Other hypertrophic cardiomyopathy (principal); I27.20 Pulmonary hypertension, unspecified; I35.1 Nonrheumatic aortic (valve) insufficiency; Z95.818 Presence of other cardiac implants and grafts | CPT/HCPCS: 93306 ==

== ENCOUNTER 2025-06-08 08:26 | Outpatient (REF) | payer MEDICARE, SELFPAY ==
--- OUTSIDE RECORDS SUMMARY | 2025-06-08 08:37 | XMS_ITS | Encounter Summary ---
Author Organization [facility] Address [address] [facility] [address] [place] [address] Phone Care Team Providers Care Sign Wirer Name Role Phone Gabriella Diggs MD Primary Care Provider [phone] Reason for Referral * Physical Therapy (Routine) - Closed Specialty Diagnoses / Procedures Referred By Contac t Referred To Contact Physical Therapy Diagnoses Mixed incontinence N39.46 (ICD-10-CM) - Mixed incontinence Maicol Masters MD Phone: tel: fax: mailto:[email or web address] [address] [place] [address] Phone: tel: Referral ID Status Reason Start Date Expiration Date Visits Re quested Visits Authorized [id number] Closed 09/29/2019 10/26/2020 99 [phone] Encounter Details Date Type Department Care Team (Latest Contact Info) Description 07/21/2019 Transcribe Orders [facility] [address] [place] [address] Maicol Masters MD [address] [facility] [address] [place] [address] [email or web address] Mixed incontinence (Primary Dx) Social History Tobacco Use Types Packs/Day Years Used Date Smoking Tobacco: Former Smokeless Tobacco: Never Comments:quit 25 yrs ago Alcohol Use Standard Drinks/Week Comments No 0 (1 standard drink = 0.6 oz pur e alcohol) Comments Unknown Sex and Gender Information Value Date Recorded Sex Assigned at Not on file Legal Sex Female 3:07 PM EST Gender Identity Not on file Sexual Orientation Not on file documented as of this encounter Plan of Treatment Scheduled Referrals Name Type Priority Associated Diagnoses Orde r Schedule Ambulatory referral to [facility] Physical Therapy Outpatient Referral Routine Mixed incontinence Ordered: 07/21/2019 documented as of this encounter Visit Diagnoses Diagnosis Mixed incontinence- Primary Mixed incontinence urge and stress (male)(female) documented in this encounter Care Teams Sign Wirer Relationship Specialty Start Date End Date Gabriella Diggs MD [address] [place] [id number] PCP - General Internal Medicine 10/22/17 documented as of this encounter Additional Source Comments The information contained in this document represents components of the legal health record. It is not the complete legal health record.[facility]
--- OUTSIDE RECORDS SUMMARY | 2025-06-08 08:37 | XMS_ITS | Clinical Summary ---
Author Organization [facility] Facility Address [address] [address] Care Team Providers Care Elementary Math Tutor Name Role Phone Gabriella Diggs MD Primary Care Provider [phone] Allergies Active Allergy Reactions Criticality Noted Date [...] mouth 1 (one) time each day Active [place]-3 Fatty Acids (Fish Oil) 1200 MG capsule [...] Pneumococcal Vaccine: 50+ Ye ars (1 of 1 - PCV) 01/18/1992 Influenza Vaccine (#1) 2025 Hepatitis B Vaccine Aged Out No longe r eligible based on patient's age to complete this topic Insurance Medicare [facility] Medicare [facility] Care Teams Elementary Math Tutor Relationship Specialty Start Date End Date Gabriella Diggs MD [facility] [place] [address] [place], [place] PCP - General 11/06/20
--- NOTE | 2025-06-08 08:48 | PFT_ITS ---
Flows: FEV1: 57 % of predicted at 0.99 L FVC: 63 % of predicted at 1.44 L FEV1/FVC: 69 % Bronchodilator response: Present Volumes: Total lung capacity: 60 % of predicted at 2.74 L Residual volume: 68 % of predicted at 1.38 L Slow vital capacity: 56 % of predicted at 1.36 L Expiratory reserve volume: 20 % of predicted at 0.12 L Diffusion capacity: Moderately decreased, corrects to normal after adjustment for alveolar ventilation. Impression: Combined moderate obstructive and restrictive ventilatory defects with positive bronchodilator response. Decreased expiratory reserve volume suggests extrathoracic restriction likely secondary to abdominal obesity. Decreased diffusion capacity suggests emphysema. MTDD
[2025-06-08 09:33] VITALS: PULSE 57; O2SAT 96
== END 2025-06-08 08:27 | disposition home or self-care (01) ==
LOC: HO.RESP 08:26
PROVIDERS: PCP Internal Medicine; Visit Provider Internal Medicine
DX: J44.9 Chronic obstructive pulmonary disease, unspecified (principal)
CPT/HCPCS: 94010; 94640; 94727; 94729

== ENCOUNTER → 2025-06-08 08:48 | Outpatient (BNV) | payer MEDICARE, SELFPAY | PROVIDERS: PCP Internal Medicine; Visit Provider Internal Medicine Pulmonary Disease | DX: J44.9 Chronic obstructive pulmonary disease, unspecified (principal) | CPT/HCPCS: 94060; 94727; 94729 ==

== ENCOUNTER 2025-07-12 13:11 | Outpatient (AMB) | payer MEDICARE, SELFPAY ==
--- NOTE | 2025-07-12 13:12 | A.OFFPC_ITS ---
Vital Signs 07/12/25 13:13 Height 5 ft 2 in Weight 179 lb 2 oz BMI 32.8 BP 136/74 Blood Pressure Location Lt brachial Position Sitting Pulse 68 Pulse Source Pulse Oximeter Temp 97.1 F Temp Source Temporal Artery Scan Pulse Oximetry (%) 98 Oxygen Delivery Method Room Air Intake Visit Reasons: HTN, Cholesterol Allergies amoxicillin (AMOXICILLIN) Allergy (Mild, Verified 07/12/25 13:17) UNKNOWN-HAPPENED IN OR 2009 milk (MILK) Allergy (Unknown, Verified 07/12/25 13:17) DIARRHEA lisinopril Adverse Reaction (Intermediate, Verified 07/12/25 13:17) hyperkalemia Medication List - Last Reconciled 07/12/25 by Gabriella Diggs MD acetaminophen 325 mg PO Q6H ascorbic acid (vitamin C) 1,000 mg PO Q6H aspirin (Adult Aspirin Regimen) 81 mg PO DAILY atorvastatin 20 mg PO DAILY cholecalciferol (vitamin D3) 75 mcg (3 x 25 mcg (1,000 unit)) PO DAILY cyanocobalamin (vitamin B-12) 100 mcg PO DAILY docusate sodium (Colace) 100 mg PO DAILY rovjjell-upzo-[id number]-C-suzie-bosw 750 mg-644 mg- 30 mg-1 mg 1 tab PO DAILY hydrocortisone 2.5% (Proctosol HC) 1 appl [place] BID-QID PRN metoprolol succinate ER 100 mg PO DAILY 90 days multivitamin 1 tab PO DAILY omeprazole 20 mg PO DAILY polyethylene glycol 3350 (Miralax) 17 grams PO DAILY Tobacco use date assessed: 07/12/25 Fall risk assessment: No Falls in past year Last assessed Fall Risk: 07/12/25 Dental Screening Dental Screen Date: 07/12/25 Did you have a dental visit in the last 12 months?: Yes Did you have a dental problem in the last 6 months where you did not have access to dental care?: No Was dental information given to patient?: Patient has dentist HPI HTN, Cholesterol HPI Details PAtient brings in a contraption for the urine controller - sacral neuromodulation- placed April 2025 Dr. Viveros [facility] Medical History (Updated 07/12/25 @ 13:50 by Gabriella Diggs MD) Dysuria Breast cancer screening by mammogram Low back pain Arthritis COVID-19 vaccine series completed Pure hypercholesterolemia Benign essential hypertension Cataracts, bilateral Acute meniscal tear of right knee Urge incontinence Overweight (BMI 25.0-29.9) Aortic aneurysm COPD (chronic obstructive pulmonary disease) Valvular heart disease Obstructive sleep apnea Anemia Surgical History (Updated 07/12/25 @ 13:39 by Gabriella Diggs MD) Hx of colonoscopy History of urologic surgery History of bladder surgery History of arthroscopy of right knee History of ankle surgery Status post resection of aortic aneurysm History of cholecystectomy Family History Father No problems noted. Mother Hypertension CVD (cardiovascular disease) Family/Other Diabetes CAD (coronary artery disease) Social History Housing: House Alcohol intake: never Patient Tobacco Use Status: Former Tobacco user Tobacco use type: Cigarette Years Smoked: stopped 52 years old e-Cigarette/Vaping Use: Never Used Second Hand Smoke Exposure: No Current occupational status: retired Cognitive needs: No Hearing needs: No Vision needs: Yes Questionnaire PHQ-9 Over the last 2 weeks, how often have you been bothered by any of the following problems? 1. Little interest or pleasure in doing things: not at all 2. Feeling down, depressed, or hopeless: not at all 3. Trouble falling or staying asleep, or sleeping too much: several days 4. Feeling tired or having little energy: several days 5. Poor appetite or overeating: not at all 6. Feeling bad about yourself - or that you are a failure or have let yourself or your family down: not at all 7. Trouble concentrating on things, such as reading the newspaper or watching television: not at all 8. Moving or speaking so slowly that other people could have noticed. Or the opposite - being so fidgety or restless that you have been moving around a lot more than usual: not at all 9. Thoughts that you would be better off or of hurting yourself in some way: not at all Total score: 2 Source: Developed by Drs. Don Dasilva, Kaitlin Logan, Joshua Platt and colleagues, with an educational jose angel from [employer]. Thrive Questionnaire Date Thrive assessed: 07/09/25 I am a: Patient What is your living situation today?: I have a steady place to live Within the past 12 months, did the food you bought not last and you didn't have the money to get more?: Never true Within the past 12 months, did you worry whether your food would run out before you got money to buy more?: Never true Do you have trouble paying for medicines?: No Do you have trouble getting transportation to medical appointments?: No Do you have trouble paying your heating and electricity bill?: No Do you have trouble taking care of your child, family member or friend?: No Do you have trouble with day-to-day activities such as bathing, preparing meals, shopping, managing finances, etc.?: No Are you currently unemployed and looking for a job?: No Are you interested in more education?: No Please select the resources that you would like help with: None Currently or been in a relationship where the following occur: No concerns reported THRIVE Score: 0 AUDIT C Alcohol Use Questionnaire (AUDIT-C) 1. How often do you have a drink containing alcohol?: Never 3. How often do you have six or more drinks on one occasion?: Never Total Score: 0 JENNIFER-7 AMB Questionnaire JENNIFER-7 Date JENNIFER - 7 assessed: 12/10/24 Feeling nervous, anxious, or on edge: 0 = Not at all Not being able to stop or control worryin = Several days Worrying too much about different things: 0 = Not at all Trouble relaxin = Not at all Being so restless that it is hard to sit still: 0 = Not at all Becoming easily annoyed or irritable: 0 = Not at all Feeling afraid as if something awful might happen: 0 = Not at all Total JENNIFER-7 score (0-4 normal; 5-9 mild; 10-14 moderate; 15-21 severe): 1 Source: Developed by Drs. Don Dasilva, aKitlin Logan, Joshua Platt and colleagues, with an educational jose angel from [employer]. Physical exam (Primary Care) Vital Signs: Last Vital Signs Temp 97.1 F 07/12/25 13:13 Pulse 68 07/12/25 13:13 BP 136/74 07/12/25 13:13 Pulse Ox 98 07/12/25 13:13 Oxygen Delivery Method Room Air 07/12/25 13:13 BMI result Body Mass Index 32.8 Tobacco/Smoking Status: Tobacco use Status Tobacco use date assessed 07/12/25 07/12/25 13:20 Patient Tobacco Use Status Former Tobacco user 07/12/25 13:20 Tobacco use type Cigarette 07/12/25 13:20 e-Cigarette/Vaping Use Never Used 07/12/25 13:20 PHQ-9: PHQ-9 Score PHQ-9: Total score 2 07/12/25 13:39 Thrive Assessment: Date of Thrive Assessment Date Thrive assessed 07/09/25 07/12/25 13:20 Currently or been in a relationship where the following occur: No concerns reported Const General: alert; No acute distress Eyes Conjunctivae: conjunctivae normal Resp Auscultation: clear to auscultation bilaterally Cardio Rate: regular rate Rhythm: regular rhythm GI Inspection: Yes normal to inspection Extrem General: Yes normal to inspection and No edema Coding Level of Care Code Est Pt Level 4 (87746) Complex EM visit Add On G2211 Diagnoses Benign essential hypertension I10 S/P ascending aortic aneurysm repair Z98.890; Z86.79 Pure hypercholesterolemia E78.00 Obesity (BMI 30.0-34.9) E66.9 Impaired glucose tolerance R73.02 Post herpetic neuralgia B02.29 Chronic obstructive pulmonary disease, unspecified COPD type J44.9 COPD type: unspecified COPD Generalized anxiety disorder F41.1 Urinary incontinence R32 GERD (gastroesophageal reflux disease) K21.9 Assessment & Plan Assessment & Plan (1) Benign essential hypertension: Comment: March 2024 echocardiogram The left ventricular systolic function is normal. The visually estimated ejection fraction is between 60-65%. - There is mild to moderately decreased right ventricular systolic function. - There is mild to moderate tricuspid valve regurgitation. - The aortic annulus and sinuses of valsalva are normal in size. History of ascending aortic graft. Code(s): I10 - Essential (primary) hypertension Category: Medical Plan: Continue with blood pressure medication. Decrease salt intake and exercise patient takes metoprolol 100 mg once a day (2) S/P ascending aortic aneurysm repair: Comment: Repair done 2009 now 10/2024 has 5.2-5.3 surveillance (Dr. Mosquera) March 2025 echo Code(s): Z98.890 - Other specified postprocedural states; Z86.79 - Personal history of other diseases of the circulatory system Category: Surgical Plan: Continue to monitor (3) Pure hypercholesterolemia: Code(s): E78.00 - Pure hypercholesterolemia, unspecified Category: Medical Plan: Avoid fried foods, chicken skin, eggs, butter margarine, pastries and meat. Be it pork or beef they have a lot of cholesterol LDL goal of less than 100 and triglyceride of less than 150 on atorvastatin 20 mg once a day (4) Obesity (BMI 30.0-34.9): Code(s): E66.9 - Obesity, unspecified Category: Medical Plan: Diet and exercise (5) Impaired glucose tolerance: Code(s): R73.02 - Impaired glucose tolerance (oral) Category: Medical Plan: Decrease the amount of carbohydrate intake, pasta, bread, rice and potatoes are all sugar and that is aside from all the sweet stuff, remember that fruits are good but they are Sweet also. (6) Post herpetic neuralgia: Comment: Right upper back Code(s): B02.29 - Other postherpetic nervous system involvement Category: Medical Plan: Continue with present medication (7) COPD (chronic obstructive pulmonary disease): Code(s): J44.9 - Chronic obstructive pulmonary disease, unspecified Category: Medical Qualifiers: COPD type: unspecified COPD Qualified Code(s): J44.9 - Chronic obstructive pulmonary disease, unspecified (8) Generalized anxiety disorder: Comment: decline phone counselling Code(s): F41.1 - Generalized anxiety disorder Category: Medical (9) Urinary incontinence: Comment: sacral neuromodulation - placed 04/2025 Dr. Viveros Code(s): R32 - Unspecified urinary incontinence Category: Medical (10) GERD (gastroesophageal reflux disease): Code(s): K21.9 - Gastro-esophageal reflux disease without esophagitis Category: Medical Plan History of Present Illness The patient is an 85-year-old female presenting for a follow-up visit after her annual wellness check in February. The patient has a history of Chronic Obstructive Pulmonary Disease (COPD) with a lung function test conducted on June 10 showing moderate obstructive and restrictive ventilatory defects with a positive bronchodilator response. The test also indicated decreased expiratory reserve volume suggesting exothoracic restriction secondary to obesity and decreased diffusion capacity due to emphysema. She has essential hypertension managed with metoprolol 100 mg once daily, and her blood pressure is being monitored regularly. The patient has hypercholesterolemia with an LDL goal of less than 100 mg/dL, cu rrently managed with atorvastatin 20 mg once daily, along with dietary and exercise recommendations. She has a history of generalized anxiety disorder and postoperative neuralgia in the right upper back, which has persisted for nearly three years. The neuralgia is currently managed with Tylenol, and the patient has declined other medications such as gabapentin. The patient has osteopenia, with the last bone density test conducted in August 2024. She underwent ascending aortic aneurysm repair in 2009, and recent echocardiogram results from April 12 showed an ejection fraction of 63%, modera tely increased right ventricular cavity size, mild aortic valve regurgitation, moderate tricuspid regurgitation, and mild aortic dilation at 4 cm. The patient has impaired glucose tolerance with a recent blood sugar level of 110 mg/dL, and dietary modifications have been discussed to manage this condition. She reports urinary incontinence, for which a device was placed by her SANDER HAND in April to help with urine flow, although it has only slightly improved the condition. The patient experiences symptoms suggestive of gastroesophageal reflux disease (GERD), including waking up with a sensation of nausea, and has been prescribed omeprazole to manage these symptoms. Preventative care measures include a mammogram conducted in February 2024 and a colonoscopy last performed in 2013. Health Maintenance - Mammogram conducted in February 2024 - Colonoscopy last performed in 2013 - Dietary modifications discussed for impaired glucose tolerance - Regular monitoring of blood pressure and cholesterol levels - Exercise and diet recommendations for hypercholesterolemia Social History - The patient is responsible for managing her 's care, who has been declared legally blind and has Alzheimer's disease. - The patient reports difficulty sleeping and attempts to exercise regularly. - Dietary habits include consumption of carbohydrates and sweet foods, with a preference for fruits and occasional indulgence in sweets. - The patient experiences lactose intolerance, leading to diarrhea upon consumption of milk products. Review of Systems - Respiratory: Reports dyspnea on exertion, denies cough or wheezing. - Cardiovascular: Denies chest pain or palpitations. - Gastrointestinal: Reports nausea upon waking, denies vomiting. - Genitourinary: Reports urinary incontinence. - Neurological: Reports persistent postoperative neuralgia in the right upper back. Physical Exam Results - Labs: Normal blood count, mild thrombocytopenia, elevated blood sugar at 110 mg/dL, normal liver function, LDL cholesterol at 78 mg/dL, vitamin D, folic acid, and thyroid levels within normal limits. - Tests: Lung function test showing moderate obstructive and restrictive ventilatory defects with positive bronchodilator response, decreased expiratory reserve volume, and decreased diffusion capacity due to emphysema. - Imaging: Echocardiogram showing ejection fraction of 63%, moderately increased right ventricular cavity size, mild aortic valve regurgitation, moderate tricuspid regurgitation, and mild aortic dilation at 4 cm. Plan Patient was informed and verbally consented to the use of an ambient scribe for clinic note documentation during this visit. 1. Chronic Obstructive Pulmonary Disease (Copd) The patient will continue with current management for COPD, including monitoring of symptoms and lung function tests as needed. 2. Essential Hypertension The patient will continue taking metoprolol 100 mg once daily and monitor blood pressure regularly. 3. Hypercholesterolemia The patient will continue atorvastatin 20 mg once daily, with a goal of maintaining LDL cholesterol below 100 mg/dL, and adhere to dietary and exercise recommendations. 4. Generalized Anxiety Disorder The patient will continue current management for anxiety, with no changes in medication at this time. 5. Postoperative Neuralgia The patient will continue using Tylenol for pain management and has declined other medications such as gabapentin. 6. Osteopenia The patient will continue with current management for osteopenia, with follow-up bone density testing as needed. 7. Ascending Aortic Aneurysm (Status Post Repair) The patient will continue regular monitoring of the aortic size and cardiac function, with follow-up echocardiograms as needed. 8. Impaired Glucose Tolerance The patient will adhere to dietary modifications to manage blood sugar levels and monitor glucose levels regularly. 9. Urinary Incontinence The patient will continue using the device placed by her SANDER HAND to assist with urine flow and monitor symptoms. 10. Gastroesophageal Reflux Disease (Gerd) The patient will take omeprazole once daily and undergo further testing to evaluate for reflux. Discussion Notes During the visit, we discussed the management of the patient's COPD, hypertension, and hypercholesterolemia, emphasizing the importance of medication adherence and lifestyle modifications. We also addressed the patient's impaired glucose tolerance and the need for dietary changes to manage blood sugar levels. The patient was advised to continue using the urinary device and was prescribed omeprazole for GERD symptoms, with further testing recommended to evaluate reflux. Patient Instructions - Continue taking metoprolol and atorvastatin as prescribed. - Monitor blood pressure and cholesterol levels regularly. - Follow dietary recommendations to manage blood sugar levels. - Use the urinary device as instructed by your SANDER HAND. - Take omeprazole once daily for GERD symptoms. - Schedule follow-up tests as recommended. Orders: Orders [place] upper GI series Today K21.9 - Gastro-esophageal reflux disease without esophagitis Medications: New omeprazole 20 mg PO DAILY 30 caps 0RF K21.9 - Gastro-esophageal reflux disease without esophagitis
[2025-07-12 13:13] VITALS: BP 136/74; PULSE 68; TEMP 36.2; O2SAT 98; BMI 32.8
--- OUTSIDE RECORDS SUMMARY | 2025-07-12 17:06 | XMS_ITS | Clinical Summary ---
Author Organization [facility] Facility Address [address] [address] Care Team Providers Care Transportation Department Supervisor Name Role Phone Gabriella Diggs MD Primary Care Provider [phone] Allergies Active Allergy Reactions Criticality Noted Date [...] mouth 1 (one) time each day Active [place]-3 Fatty Acids (Fish Oil) 1200 MG [...] age to complete this topic Insurance Medicare [facility] Medicare [facility] Care Teams Transportation Department Supervisor Relationship Specialty Start Date End Date Gabriella Diggs MD [facility] [place] [address] [place], [place] PCP - General 11/06/20
--- OUTSIDE RECORDS SUMMARY | 2025-07-12 17:06 | XMS_ITS | Encounter Summary ---
Author Organization [facility] Address [address] [place] [address] Phone Care Team Providers Care Director Critical Care Name Role Phone Gabriella Diggs MD Primary Care Provider [phone] Encounter Details Date Type Department Care Team (Late st Contact Info) Description 01/26/2018 Procedure Pass [address] [address] Social History Tobacco Use Types Packs/Day Years Used Date Smoking Tobacco: Former Smokeless Tobacco: Never Alcohol Use Standard Drinks/Week Comments No 0 (1 standard drink = 0.6 oz pur e alcohol) Comments Unknown Sex and Gender Information Value Date Recorded Sex Assigned at Not on file Legal Sex Female 3:07 PM EST Gender Identity Not on file Sexual Orientation Not on file documented as of this encounter Plan of Treatment Not on file documented as of this encounter Visit Diagnoses Not on filedocumented in this encounter Care Teams Director Critical Care Relationship Specialty Start Date End Date Gabriella Diggs MD [address] [place] [address] PCP - General Internal Medicine 10/22/17 documented as of this encounter Additional Source Comments The information contained in this document represents components of the legal health record. It is not the complete legal health record.[facility]
--- OUTSIDE RECORDS SUMMARY | 2025-07-12 17:06 | XMS_ITS | Encounter Summary ---
Author Organization [facility] Address [address] [place] [address] Phone Care Team Providers Care Register Repairer Name Role Phone Gabriella Diggs MD Primary Care Provider [phone] Encounter Details Date Type Department Care Team (Late st Contact Info) Description 05/28/2018 Procedure Pass [facility], Ct Scan - [address] [address] Social History Tobacco Use Types Packs/Day Years [...] on filedocumented in this encounter Care Teams Register Repairer Relationship Specialty Start Date End Date Gabriella Diggs MD [address] [place] [id number] PCP - General Internal Medicine 10/22/17 documented as of this encounter Additional Source Comments The information contained in this document represents components of the legal health record. It is not the complete legal health record.[facility]
--- OUTSIDE RECORDS SUMMARY | 2025-07-12 17:06 | XMS_ITS | Clinical Summary ---
Author Organization [facility] Address [address] [place] [address] Phone Care Team Providers Care Commissioning Engineer Name Role Phone Gabriella Diggs MD Primary Care Provider [phone] Allergies Active Allergy Reactions Criticality Noted Date Comments Amoxicillin Unknown 11/07/2017 During heart surgery, pt is not certain. Milk Diarrhea 05/19/2018 Medications atorvastatin (LIPITOR) 20 MG tablet TAKE 1 TABLET BY MOUTH EVERY DAY FOR 90 DAYS 3 7 Active metoprolol tartrate (LOPRESSOR) 25 MG tablet Take 25 mg by mouth 2 (two) times a day. 11 7 Active oxybutynin (DITROPAN-XL) 5 MG 24 hr tablet Take 5 mg by mouth every other day. 3 7 Active MULTIVITAMIN ORAL Take by mouth. Activ e glucosamine-cho ndroitin 500-400 mg Cap Take 1 capsule by mouth 3 (three) times a day. Active DOCOSAHEXANOIC ACID/EPA (FISH OIL ORAL) Take by mouth. Activ e CYANOCOBALAMIN, VITAMIN B-12, (VITAMIN B12 ORAL) Take by mouth. Activ e DOCUSATE SODIUM (STOOL SOFTENER ORAL) Take by mouth. Activ e Lactobacillus acidophilus (PROBIOTIC ORAL) Take 1 capsule by mouth daily. Active aspirin 325 MG EC tablet Take 1 tablet (325 mg total) by mouth 2 (two) times a day. 60 tablet 1 8 Active valACYclovir (VALTREX) 1000 MG tablet 1 Active trospium (SANCTURA) 20 mg tablet 1 Active trospium (SANCTURA) 20 mg tablet Take 20 mg by mouth. 1 Active senna-docusate (PERICOLACE) 8.6-50 mg Take by mouth. 0 Active pregabalin (LYRICA) 75 MG capsule 1 Active lidocaine (LIDODERM) 5 % 1 Active ibuprofen (ADVIL,MOTRIN) 600 MG tablet Take 600 mg by mouth. 0 Active estradioL (ESTRACE) 0.01 % (0.1 mg/gram) vaginal cream See Instructions, 1 gram Vaginally at bedtime 2 times per week, # 42.5 Gm, 11 Refills, Maintenance, 10/31/20 14:28:00 EST, [id number], Patient sensitive to inactive ingredients of manufacturers drugs, 162.56, cm, 10/31/20 14:18:00 EST, Height... 1 Active acetaminophen (TYLENOL) 325 mg tablet Take 325 mg by mouth. 0 Active ascorbic acid, vitamin C, (VITAMIN C) 100 MG tablet Take 1,000 mg by mouth. 0 Active Active Problems Problem Noted Date Diagnosed Date Hypoxia 05/28/2018 Assessment & Plan (05/28/2018 6:26 PM EDT): Patient has already had CT angiogram ruling out PE, there is also no consolidation seen making pneumonia much less likely. I did review with the patient how she is using her incentive spirometer and unfortunately she had been breathing very quickly with a short forceful breaths not optimizing its use. She was also only using it 6-8 times a day. I reviewed the importance of slow long inspiratory breaths as well as frequency of use encouraged her to take 3 separate attempts at every commercial break in her television watching. She has agreed to do so Additionally she does have a history of COPD and we will attempt a trial of albuterol as she has had this in the past however she does not use it regularly and I do not hear any wheezing thus I think this is less contributing factor. Thank you for this consult we will follow along until this problem is resolved Primary osteoarthritis of right knee 05/26/2018 Right knee pain 11/06/2017 Hypertension Family History Medical History Relation Comments No Known Problems Brother No Known Problems Father No Known Problems Maternal Aunt No Known Problems Maternal Grandfather No Known Problems Maternal Grandmother No Known Problems Maternal Uncle No Known Problems Mother No Known Problems Paternal Aunt No Known Problems Paternal Grandfather No Known Problems Paternal Grandmother No Known Problems Paternal Uncle Cancer Sister Cancer Unspecified Diabetes Unspecified Infl. arthritis Unspecified Clotting disorder Neg Hx Collagen disease Neg Hx Depression Neg Hx Dislocations Neg Hx Gout Neg Hx Osteoporosis Neg Hx Scoliosis Neg Hx Relation Status Comments Brother Father Maternal Aunt Maternal Grandfather Maternal Grandmother Maternal Uncle Mother Paternal Aunt Paternal Grandfather Paternal Grandmother Paternal Uncle Sister Unspecified Social History Tobacco Use Types Packs/Day Years Used Date Smoking Tobacco: Former Smokeless Tobacco: Never Comments:quit 25 yrs ago Alcohol Use Standard Drinks/Week Comments No 0 (1 standard drink = 0.6 oz pur e alcohol) Education Answer Date Recorded Are you interested in more education? Not on cuong e 02/21/2023 Are you concerned about learning? Not on file 02/21/2023 No 02/21/2023 No 02/21/2023 Digital Access Answer Date Recorded No 03/22/2023 No 03/22/2023 Reliable internet access at home? Not on file 03/22/2023 Device with a working camera? Not on file Comments Unknown Sex and Gender Information Value Date Recorded Sex Assigned at Not on file Legal Sex Female 3:07 PM EST Gender Identity Not on file Sexual Orientation Not on file Last Filed Vital Signs Vital Sign Reading Time Taken Comments Blood Pressure 111/60 05/29/2018 11:47 AM EDT Pulse 76 05/29/2018 11:47 AM EDT Temperature 37.9 C (100.2 F) 05/29/2018 11:47 AM EDT Respiratory Rate 18 05/29/2018 11:47 AM EDT Oxygen Saturation 93% 05/29/2018 11:47 AM EDT Inhaled Oxygen Concentration - - Weight 83.5 kg (184 lb 1.4 oz) 07/23/2018 10:52 AM EDT Height 165.1 cm (5' 5 ) 07/23/2018 10:52 AM EDT Body Mass Index 30.63 07/23/2018 10:52 AM EDT Plan of Treatment Health Maintenance Due Date Last Done Comments BLOOD PRESSURE 1942 DEPRESSION SCREENING 1954 OSTEOPOROSIS SCREENING INITIAL (ONE-TIME) 2007 RSV VACCINE (1 - 1-dose 75+ series) 2017 ZOSTER VACCINES (2 of 3) 02/19/2017 12/25/2016 INFLUENZA VACCINE (#1) 2025 , 08/18/2019, 08/06/2019, Additional history exists COVID-19 VACCINE ( season) 2025 09/18/2021, 12/30/2020, 12/09/2020 Adult Td,Tdap Booster 02/09/2029 02/09/2019, 008 PNEUMOCOCCAL VACCINES (50+ years) Completed 11/10/2018, 09/23/2017, 12/03/2016 HEPATITIS A VACCINES Aged Out No long er eligible based on patient's age to complete this topic HIB VACCINES Aged Out No longer eligi ble based on patient's age to complete this topic MENINGOCOCCAL VACCINES (ACWY) Aged Out No longer eligible based on patient's age to complete this topic MENINGOCOCCAL VACCINES (B) Aged Out N o longer eligible based on patient's age to complete this topic Medical Devices Implanted Type Area Vmware Administrator Device Identifier Shelf Expiration Date Model / Serial / Lot Cement Bone 40gr Raritan Ghv - [id number] Implanted:Qty: 1 on 05/26/2018 by Geremias King MD at [facility] Right: Knee [employer]ORE 06/26/2019 [id number] / / [id number] Series A Pat W/Wr Std 37x10 1 Peg Knee [id number] Implanted:Qty: 1 on 05/26/2018 by Geremias King MD at [facility] Right: Patella [employer] 01/12/2023 [id number] / / [id number] Plate Bone 75mm Knee Tibial Tray I Beam Locking Bar Raritan Chrome Maxim Ea Knee [id number] Implanted:Qty: 1 on 05/26/2018 by Geremias King MD at [facility] Right: Knee [employer] 01/03/2028 [id number] / / [id number] Implant Knee 67.5mm Femoral Component Interlok Right Ea Knee 02 - [id number] Implanted:Qty: 1 on 05/26/2018 by Geremias King MD at [facility] Right: Knee [employer] 02/10/2028 [id number] / / [id number] Implant Knee [id number] Tibial Bearing Insert lAex Ps Ea Knee [id number] Implanted:Qty: 1 on 05/26/2018 by Geremias King MD at [facility] Right: Knee [employer] 11/19/2022 [id number] / / [id number] Insurance MEDICARE PART A & B [facility] MEDEX SUPPLEMENT MEDICARE PART A & B [employer] MEDEX SUPPLEMENT MEDICARE PART A & B [employer] MEDEX SUPPLEMENT MEDICARE PART A & B [employer] MEDEX SUPPLEMENT MEDICARE PART A & B [employer] MEDEX SUPPLEMENT MEDICARE PART A & B [employer] MEDEX SUPPLEMENT MEDICARE PART A & B [employer] MEDEX SUPPLEMENT MEDICARE PART A & B [facility] MEDEX SUPPLEMENT MEDICARE PART A & B BLUE [employer]OSS MEDEX SUPPLEMENT Advance Directives For more information, please contact: [phone] (9AM - 5PM [facility], Friday-Friday) * Full Code (Presumed) (Latest Code Status on File) Date Activated Date Inactivated Comments 05/26/2018 1:05 PM 05/29/2018 3:28 PM * Full Code (Presumed) Date Activated Date Inactivated Comments 05/26/2018 7:36 AM 05/26/2018 1:05 PM Care Teams Commissioning Engineer Relationship Specialty Start Date End Date Gabriella Diggs MD [address] [place] [address] PCP - General Internal Medicine 10/22/17 Additional Source Comments The information contained in this document represents components of the legal health record. It is not the complete legal health record.[facility]
--- OUTSIDE RECORDS SUMMARY | 2025-07-12 17:06 | XMS_ITS | Encounter Summary ---
Author Organization [facility] Address [address] [place] [address] Phone Care Team Providers Care Primary Education Professor Name Role Phone Gabriella Diggs MD Primary Care Provider [phone] Encounter Details Date Type Department Care Team (Late st Contact Info) Description 05/26/2018 Procedure Pass OR Admitting Dept - Virtual Department [address] [place] [address] Social History Tobacco Use Types Packs/Day Years [...] on filedocumented in this encounter Care Teams Primary Education Professor Relationship Specialty Start Date End Date Gabriella Diggs MD [address] [place] [address] PCP - General Internal Medicine 10/22/17 documented as of this encounter Additional Source Comments The information contained in this document represents components of the legal health record. It is not the complete legal health record.[facility]
--- OUTSIDE RECORDS SUMMARY | 2025-07-12 17:06 | XMS_ITS | Encounter Summary ---
Author Organization [facility] Address [address] [place] [address] Phone Care Team Providers Care Nuclear Plant Technical Advisor Name Role Phone Gabriella Diggs MD Primary Care Provider [phone] Reason for Referral * Physical Therapy (Routine) - Closed Specialty Diagnoses / Procedures Referred By Contac t Referred To Contact Physical Therapy Diagnoses Mixed incontinence N39.46 (ICD-10-CM) - Mixed incontinence Maicol Masters MD Phone: tel: fax: mailto:[email or web address] [address] [place] [address] Phone: tel: Referral ID Status Reason Start Date Expiration Date Visits Re quested Visits Authorized [id number] Closed 09/29/2019 10/26/2020 99 99 Encounter Details Date Type Department Care Team (Latest Contact Info) Description 07/21/2019 Transcribe Orders [facility] [address] [place] [address] Maicol Masters MD [address] [facility] [address] [place] [address] [email or web address] Mixed incontinence (Primary Dx) Social History Tobacco [...] Diagnoses Orde r Schedule Ambulatory referral to [facility] Physical Therapy Outpatient Referral Routine Mixed incontinence Ordered: 07/21/2019 documented as of this encounter Visit Diagnoses Diagnosis Mixed incontinence- Primary Mixed incontinence urge and stress (male)(female) documented in this encounter Care Teams Nuclear Plant Technical Advisor Relationship Specialty Start Date End Date Gabriella Diggs MD [address] [place] [phone] PCP - General Internal Medicine 10/22/17 documented as of this encounter Additional Source Comments The information contained in this document represents components of the legal health record. It is not the complete legal health record.[facility]
== END 2025-07-12 14:05 | disposition home or self-care (01) ==
LOC: HO.HMCH 13:11
PROVIDERS: PCP Internal Medicine; Visit Provider Internal Medicine
DX: J44.9 Chronic obstructive pulmonary disease, unspecified (principal); E66.9 Obesity, unspecified; Z68.32 Body mass index [BMI] 32.0-32.9, adult; I10 Essential (primary) hypertension; Z98.890 Other specified postprocedural states; Z86.79 Personal history of other diseases of the circulatory system; E78.00 Pure hypercholesterolemia, unspecified; R73.02 Impaired glucose tolerance (oral); B02.29 Other postherpetic nervous system involvement; F41.1 Generalized anxiety disorder; R32 Unspecified urinary incontinence; K21.9 Gastro-esophageal reflux disease without esophagitis

== ENCOUNTER → 2025-07-12 13:11 | Outpatient (BNVA) | payer MEDICARE, SELFPAY | PROVIDERS: PCP Internal Medicine; Visit Provider Internal Medicine | DX: I10 Essential (primary) hypertension (principal); E78.00 Pure hypercholesterolemia, unspecified; E66.9 Obesity, unspecified; R73.02 Impaired glucose tolerance (oral); B02.29 Other postherpetic nervous system involvement; J44.9 Chronic obstructive pulmonary disease, unspecified; F41.1 Generalized anxiety disorder; R32 Unspecified urinary incontinence; K21.9 Gastro-esophageal reflux disease without esophagitis; M79.2 Neuralgia and neuritis, unspecified; Z86.79 Personal history of other diseases of the circulatory system; Z98.890 Other specified postprocedural states | CPT/HCPCS: 96127; 99212 ==

== ENCOUNTER 2025-09-07 08:50 | Outpatient (AMB) | payer MEDICARE, SELFPAY ==
--- NOTE | 2025-09-07 08:57 | MHC.OFFVIS ---
Vital Signs 09/07/25 08:58 Height 5 ft 2 in BMI Reason not done Patient refused/unable BP 124/68 Blood Pressure Location Lt brachial Position Sitting Pulse 56 Pulse Source Pulse Oximeter Intake Visit Reasons: 6m follow up/ echo prior Allergies amoxicillin (AMOXICILLIN) Allergy (Mild, Verified 07/12/25 13:17) UNKNOWN-HAPPENED IN OR 2009 milk (MILK) Allergy (Unknown, Verified 07/12/25 13:17) DIARRHEA lisinopril Adverse Reaction (Intermediate, Verified 07/12/25 13:17) hyperkalemia Medication List - Last Reconciled 09/07/25 by Pool Nguyen MD acetaminophen 325 mg PO Q6H ascorbic acid (vitamin C) 1,000 mg PO Q6H aspirin (Adult Aspirin Regimen) 81 mg PO DAILY atorvastatin 20 mg PO DAILY cholecalciferol (vitamin D3) 75 mcg PO ONCE cyanocobalamin (vitamin B-12) 100 mcg PO DAILY docusate sodium (Colace) 100 mg PO DAILY ouxlbptg-pkag-wub6-C-suzie-bosw 750 mg-644 mg- 30 mg-1 mg 1 tab PO DAILY hydrocortisone 2.5% (Proctosol HC) 1 appl ID BID-QID PRN metoprolol succinate ER 100 mg PO DAILY 90 days multivitamin 1 tab PO DAILY polyethylene glycol 3350 (Miralax) 17 grams PO DAILY HPI Comments Details: Kayla returns for follow-up. To recall, she had surgery for aortic aneurysm in 2009. Per operative note, she had repair of ascending aortic aneurysm with aortic graft. 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 Then she saw [facility]iology for some time but not anymore. She switched to our care. According daughter, she walks with a shuffling gait and she is feeling short of breath with activity. However, it has been like this for a while. No clear-cut exertional anginal-type symptoms. She also concurrently follows up with Cardiac surgery at [facility]. [facility] Medical History (Updated 09/07/25 @ 09:08 by Pool Nguyen MD) Dysuria Breast cancer screening by mammogram Low back pain Arthritis COVID-19 vaccine series completed Pure hypercholesterolemia Benign essential hypertension Cataracts, bilateral Acute meniscal tear of right knee Urge incontinence Overweight (BMI 25.0-29.9) Aortic aneurysm COPD (chronic obstructive pulmonary disease) Valvular heart disease Obstructive sleep apnea Anemia Surgical History (Updated 09/07/25 @ 09:08 by Pool Nguyen MD) Hx of colonoscopy History of urologic surgery History of bladder surgery History of arthroscopy of right knee History of ankle surgery Status post resection of aortic aneurysm History of cholecystectomy Family History Father No problems noted. Mother Hypertension CVD (cardiovascular disease) Family/Other Diabetes CAD (coronary artery disease) Social History Housing: House Alcohol intake: never Patient Tobacco Use Status: Former Tobacco user Tobacco use type: Cigarette Years Smoked: stopped 52 years old e-Cigarette/Vaping Use: Never Used Second Hand Smoke Exposure: No Current occupational status: retired Cognitive needs: No Hearing needs: No Vision needs: Yes Review of Systems Const Denies weakness ENT Denies dizziness Card Denies chest pain, Denies chest pain with activity, Denies syncope, Denies rapid heart rate, Denies pedal edema, Denies edema, Denies leg edema, Denies lightheadedness, Denies palpitations, Denies dyspnea, Denies dyspnea on exertion and Denies orthopnea Resp Denies cough, Denies dyspnea and Denies dyspnea on exertion GI Denies hematochezia and Denies change in stool character Musc Denies abnormal gait, Denies muscle cramps, Denies muscle weakness, Denies numbness, Denies radiating pain into limb and Denies tingling Neuro Denies abnormal gait, Denies dizziness, Denies syncope, Denies numbness, Denies tingling and Denies weakness Endo Denies palpitations Physical Exam Vital Signs: Last Vital Signs Pulse 56 09/07/25 08:58 BP 124/68 09/07/25 08:58 Const General: comfortable and no acute distress Orientation/consciousness: patient oriented x3 HEENT Other: Unremarkable Head: Yes normal to inspection Neck Neck: Yes normal visual inspection Chest Chest palpation & inspection: normal inspection of the chest Resp Auscultation: clear to auscultation bilaterally Cardio Palpation: normal PMI Heart sounds: S1 normal heart sound present, S2 normal heart sound present, no gallops, Murmur heart sound present systolic II/ and no rubs GI Palpation (GI): Soft to palpation Back/Spine/Pelvis Other: unremarkable Skin General skin exam: no rashes or lesions noted Neuro General: patient oriented x3 Extrem General: Yes normal to inspection Psych Mental Status: mental status grossly normal Office Procedures EKG Details: EKG with underlying sinus rhythm at 61/Min; ID prolongation to 238 milliseconds; PACs; [place]. [id number], Complete Assessment & Plan Assessment & Plan (1) S/P ascending aortic aneurysm repair: Code(s): Z98.890 - Other specified postprocedural states; Z86.79 - Personal history of other diseases of the circulatory system Category: Surgical Plan: Per operative note from 2009, she had repair of ascending aortic aneurysm with Hemashield aortic graft. 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 Only minimally enlarged compared 2018. Conservative management has been planned because of high-risk surgery. Avoid strenuous exertion as well as maintain good blood pressure control. 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 Right coronary artery could not be imaged well due to anterior origin but no obvious obstructive disease. Clinically, she has got no angina. Considering his age and comorbidities, no specific workup for now. (3) Right ventricular enlargement: Code(s): I51.7 - Cardiomegaly Category: Medical Plan: Moderately increased right ventricular size with moderate tricuspid regurgitation reported on last echocardiogram. Per PCP note, COPD with abnormal pulmonary function testing which could explain her shortness of breath. Less likely cardiac etiology. Deconditioning may also play a role. We will recheck echocardiogram from cardiac standpoint. (4) Atrial arrhythmia: Code(s): I49.8 - Other specified cardiac arrhythmias Category: Medical Plan: Supraventricular ectopy on EKG. Can be followed periodically. (5) Benign essential hypertension: Comment: Code(s): I10 - Essential (primary) hypertension Category: Medical Plan: Stable. Plan Discussion Notes I discussed with the patient the need for an EKG and echocardiogram to evaluate her cardiac function due to her shortness of breath. We also talked about the possibility of pulmonary causes, including COPD, and the need for follow-up with her primary care physician if cardiac causes are ruled out. The importance of monitoring her aortic aneurysm was emphasized, and a follow-up with Dr. Mosquera was planned. Patient was informed and verbally consented to the use of an ambient scribe for clinic note documentation during this visit. Orders: Orders CA echo transthoracic complete Today Pool Nguyen MD I51.7 - Cardiomegaly, Z86.79 - Personal history of other diseases of the circulatory system, Z98.890 - Other specified postprocedural states Medications: Changed From cholecalciferol (vitamin D3) 75 mcg (3 x 25 mcg (1,000 unit)) PO DAILY 90 caps 0RF To cholecalciferol (vitamin D3) 75 mcg PO ONCE Lorenver O Po, Patient Instructions: - Undergo EKG and echocardiogram as scheduled - Follow up with primary care physician if cardiac tests are normal - Attend follow-up appointment with cardiac surgeon for aortic aneurysm evaluation Coding Level of Care Code Est Pt Level 4 (44859) Complex EM visit Add On G2211 Diagnoses S/P ascending aortic aneurysm repair Z98.890; Z86.79 Anomalous coronary artery origin Q24.5 Right ventricular enlargement I51.7 Atrial arrhythmia I49.8 Benign essential hypertension I10 CPT Codes EKG - CPT: 57316-[id number], Complete ([id number])
[2025-09-07 08:58] VITALS: BP 124/68; PULSE 56
--- OUTSIDE RECORDS SUMMARY | 2025-09-07 09:16 | XMS_ITS | Encounter Summary ---
Author Organization [facility] Address [address] [place] [address] Phone Care Team Providers Care Duct Installer Name Role Phone Gabriella Diggs MD Primary Care Provider Encounter Details Date Type Department Care Team (Late st Contact Info) Description 05/26/2018 Procedure Pass OR Admitting Dept - Virtual Department [address] [place] [address] Social History Tobacco Use Types Packs/Day Years [...] on filedocumented in this encounter Care Teams Duct Installer Relationship Specialty Start Date End Date Gabriella Diggs MD [address] [place] [phone] PCP - General Internal Medicine 10/22/17 documented as of this encounter Additional Source Comments The information contained in this document represents components of the legal health record. It is not the complete legal health record.[facility]
--- OUTSIDE RECORDS SUMMARY | 2025-09-07 09:16 | XMS_ITS | Encounter Summary ---
Author Organization [facility] Address [address] [place] [address] Phone Care Team Providers Care Director Federal Name Role Phone Gabriella Diggs MD Primary Care Provider [phone] Encounter Details Date Type Department Care Team (Late st Contact Info) Description 05/28/2018 Procedure Pass [facility], Ct Scan - [address] [address] Social History Tobacco Use Types Packs/Day Years [...] filedocumented in this encounter Care Teams Director Federal Relationship Specialty Start Date End Date Gabriella Diggs MD [address] [place] [phone] PCP - General Internal Medicine 10/22/17 documented as of this encounter Additional Source Comments The information contained in this document represents components of the legal health record. It is not the complete legal health record.[facility]
--- OUTSIDE RECORDS SUMMARY | 2025-09-07 09:16 | XMS_ITS | Encounter Summary ---
Author Organization [facility] Address [address] [place] [address] Phone Care Team Providers Care Ribbon Blocker Name Role Phone Gabriella Diggs MD Primary Care Provider [phone] Reason for Referral * Physical Therapy (Routine) - Closed Specialty Diagnoses / Procedures Referred By Contac t Referred To Contact Physical Therapy Diagnoses Mixed incontinence N39.46 (ICD-10-CM) - Mixed incontinence Maicol Masters MD Phone: tel: fax: mailto:[email or web address] [address] [place] [address] Phone: tel: Referral ID Status Reason Start Date Expiration Date Visits Re quested Visits Authorized [id number] Closed 09/29/2019 10/26/2020 99 99 Encounter Details Date Type Department Care Team (Latest Contact Info) Description 07/21/2019 Transcribe Orders [facility] [address] [place] [address] Maicol Masters MD [address] [facility] [address] [place] [address] [email or web address] Mixed incontinence (Primary Dx) Social History Tobacco [...] Diagnoses Orde r Schedule [facility] Therapy Outpatient Referral Routine Mixed incontinence Ordered: 07/21/2019 documented as of this encounter Visit Diagnoses Diagnosis Mixed incontinence- Primary Mixed incontinence urge and stress (male)(female) documented in this encounter Care Teams Ribbon Blocker Relationship Specialty Start Date End Date Gabriella Diggs MD [address] [place] [phone] PCP - General Internal Medicine 10/22/17 documented as of this encounter Additional Source Comments The information contained in this document represents components of the legal health record. It is not the complete legal health record.[facility]
--- OUTSIDE RECORDS SUMMARY | 2025-09-07 09:16 | XMS_ITS | Clinical Summary ---
Author Organization [facility] Address [address] [place] [address] Phone Care Team Providers Care Color Strainer Name Role Phone Gabriella Diggs MD Primary Care Provider [phone] Allergies Active Allergy Reactions Criticality Noted Date [...] on patient's age to complete this topic IPV VACCINES Aged Out No longer eligi ble based on patient's age to complete this topic MENINGOCOCCAL VACCINES (ACWY) Aged Out No longer eligible based on patient's age to complete this topic MENINGOCOCCAL VACCINES (B) Aged Out N o longer eligible based on patient's age to complete this topic Medical Devices Implanted Type Area Salon Designer Device Identifier Shelf Expiration Date Model / Serial / Lot Cement Bone 40gr [place] Ghv - [id number] Implanted:Qty: 1 on 05/26/2018 by Geremias King MD at [facility] Right: Knee ENCORE 06/26/2019 [id number] / / [id number] Series A Pat W/Wr Std 37x10 1 Peg Knee 06 - [id number] Implanted:Qty: 1 on 05/26/2018 by Geremias King MD at [facility] Right: Patella [employer] 01/12/2023 [id number] / / [id number] Plate Bone 75mm Knee Tibial Tray I Beam Locking Bar [place] Chrome Maxim Ea Knee 03a - [id number] Implanted:Qty: 1 on 05/26/2018 by Geremias King MD at [facility] Right: Knee [employer] 01/03/2028 [id number] / / [id number] Implant Knee 67.5mm Femoral Component Interlok Right Ea Knee [id number] Implanted:Qty: 1 on 05/26/2018 by Geremias King MD at [facility] Right: Knee [employer] 02/10/2028 [id number] / / [id number] Implant Knee [id number] Tibial Bearing Insert Vanguard Ps Ea Knee [id number] Implanted:Qty: 1 on 05/26/2018 by Geremias King MD at [facility] Right: Knee [employer] 11/19/2022 [id number] / / [id number] Insurance MEDICARE PART A & B [employer] CROSS MEDEX SUPPLEMENT MEDICARE PART A & B iwi MEDEX SUPPLEMENT MEDICARE PART A & B iwi MEDEX SUPPLEMENT MEDICARE PART A & B iwi MEDEX SUPPLEMENT MEDICARE PART A & B iwi MEDEX SUPPLEMENT MEDICARE PART A & B iwi MEDEX SUPPLEMENT MEDICARE PART A & B iwi MEDEX SUPPLEMENT MEDICARE PART A & B Member Subscriber Plan / Payer (Ef fective 2006-Present) Name:Autumn Stephany Member ID:[id number] Relation to Subscriber:Self Name:Autumn Stephany Subscriber ID:[id number] Payer ID:[id number] Group ID:Not on file Type:Medicare Address: [employer] [facility].[address] [address] [facility] MEDEX SUPPLEMENT MEDICARE PART A & B BLUE CROSS MEDEX SUPPLEMENT Advance Directives For more information, please contact: [phone] (9AM - 5PM [facility], Friday-Friday) * Full Code (Presumed) (Latest Code Status on File) Date Activated Date Inactivated Comments 05/26/2018 1:05 PM 05/29/2018 3:28 PM * Full Code (Presumed) Date Activated Date Inactivated Comments 05/26/2018 7:36 AM 05/26/2018 1:05 PM Care Teams Color Strainer Relationship Specialty Start Date End Date Gabriella Diggs MD [address] [place] [address] PCP - General Internal Medicine 10/22/17 Additional Source Comments The information contained in this document represents components of the legal health record. It is not the complete legal health record.[facility]
--- OUTSIDE RECORDS SUMMARY | 2025-09-07 09:16 | XMS_ITS | Encounter Summary ---
Author Organization [facility] Address [address] [place] [address] Phone Care Team Providers Care Pool Player Name Role Phone Gabriella Diggs MD Primary Care Provider [phone] Encounter Details Date Type Department Care Team (Late st Contact Info) Description 01/26/2018 Procedure Pass [address] [address] Social History Tobacco Use Types Packs/Day Years [...] on filedocumented in this encounter Care Teams Pool Player Relationship Specialty Start Date End Date Gabriella Diggs MD [address] [place] [address] PCP - General Internal Medicine 10/22/17 documented as of this encounter Additional Source Comments The information contained in this document represents components of the legal health record. It is not the complete legal health record.[facility]
== END 2025-09-07 09:27 | disposition home or self-care (01) ==
LOC: HO.HCS 08:51
PROVIDERS: PCP Internal Medicine; Visit Provider Internal Medicine
DX: Z98.890 Other specified postprocedural states (principal); Z86.79 Personal history of other diseases of the circulatory system; Q24.5 Malformation of coronary vessels; I51.7 Cardiomegaly; I49.8 Other specified cardiac arrhythmias; I10 Essential (primary) hypertension
CPT/HCPCS: 93010; 99214; G2211

== ENCOUNTER → 2025-09-07 08:50 | Outpatient (BNVA) | payer MEDICARE, SELFPAY | PROVIDERS: PCP Internal Medicine; Visit Provider Internal Medicine | DX: I10 Essential (primary) hypertension (principal); Z87.891 Personal history of nicotine dependence; I49.8 Other specified cardiac arrhythmias; R06.02 Shortness of breath; Q24.5 Malformation of coronary vessels; Z98.890 Other specified postprocedural states; Z86.79 Personal history of other diseases of the circulatory system; Z79.82 Long term (current) use of aspirin | CPT/HCPCS: 93005; 99212 ==

== ENCOUNTER → 2025-10-06 12:39 | Outpatient (REF) | payer MEDICARE, SELFPAY ==
--- NOTE | 2025-10-06 12:42 | CA_ITS ---
Transthoracic Echocardiogram Patient (Last, First, Middle): Kayla Leyva A Gender: Female Date of : 1940 Age: 85 Procedure Date: 10/06/2025 Procedure Type: Transthoracic Echocardiogram Location: OP Height: 157.48 cm Weight: 79.38 kg BSA: 1.81 m2 Heart Rate: 60 bpm BP: 130 / 72 mmHg Glass Forming Crew Member: TO Referring MD: Pool Nguyen MD Multiple Games Dealer: Bebeto Arreola MD Symptoms: Z98.890 - Other specified postprocedural states/ s/p ascending ao repair/ I51.7Cardiomegaly Study Quality: Adequate w contrast ECG Rhythm: Sinus Conclusions: - 1. Normal LV ejection fraction 55-60% with at least grade 2 diastolic dysfunction 2. Moderately dilated right ventricle with mildly to moderately reduced RV systolic function 3. Moderate biatrial enlargement 4. Mild aortic and mitral regurgitation 5. Mildly elevated right ventricular systolic pressure with significantly elevated right atrial pressures 6. No gross pericardial effusion Findings Procedure Information Contrast agent, definity, is being given per protocol without apparent complications. Left Ventricle Normal left ventricular size, thickness, and systolic function. The visually estimated ejection fraction is between 55-60%. There is a flattened septum in diastole ( D shaped left ventricle) consistent with right ventricular volume overload. Spectral Doppler is indicative of a pseudonormal filling pattern. E/E prime ratio is >15, consistent with elevated filling pressures. Evidence suggests grade II (moderate) diastolic dysfunction. Right Ventricle Moderately increased right ventricular cavity size. There is mild to moderately decreased right ventricular systolic function. Atria The left atrium is moderately dilated. There is no evidence of interatrial shunt. The right atrium is moderately dilated. Aortic Valve The aortic valve was not well visualized. There is mild calcification of the aortic valve. There is no aortic valve stenosis. There is mild aortic valve regurgitation. Mitral Valve Normal mitral valve structure and function. There is mild mitral valve regurgitation. There is no mitral valve stenosis. Pulmonic Valve The pulmonic valve is likely normal. There is trace pulmonic valve regurgitation. Tricuspid Valve Normal tricuspid valve structure. There is moderate to severe tricuspid valve regurgitation. The right ventricular systolic pressure is 42 mmHg. Significantly elevated right atrial pressure. Mild pulmonary hypertension is present. Great Vessels The pulmonary artery was not well visualized. There is mild dilatation of the ascending aorta measuring 4.00 cm. Venous The inferior vena cava is moderately dilated and does not collapse with inspiration. Pericardium/Pleural There is no evidence of pericardial effusion. Prior Study Comparison Changes noted compared to prior study dated: 04/12/2025. right atrial pressures are significantly increase Measurements 2D Linear Measurements IVSd: 0.99 0.6-0.9/0.6-1.0 cm LVIDd: 4.16 3.9-5.3/4.2-5.9 cm LVIDd Index: 2.30 2.4-3.2/2.2-3.1 cm/m2 LVIDs: 2.56 2.0-3.6 cm LVPWd: 0.84 0.7-1.1 cm LA Diam: 4.70 2.7-3.8/3.0-4.0 cm LAIDs Index: 2.60 1.5-2.3 cm/m2 LV Mass: 148.65 67-162/88-224 g LV Mass Index: 82.13 43-95/49-115 g/m2 LVOT Diam: 2.00 3.0+(-)1.3 cm 2D Systolic Function EF 4C: 55.50 >55% EF 2C: 58.60 >55% EF BiP: 56.40 >55% Mitral Valve MV Pk E: 0.69 MV PK A: 0.51 MV Decel Time: 209.00 E/A: 1.40 E'Lateral: 9.68 E'Medial: 6.53 E/E' Med: 10.60 E/E' Lat: 7.10 PHT: 61.00 MVA PHT: 3.61 Decel Jay: 3.30 Aortic Valve AoV Pk Panchito: 1.80 AoV Mn Panchito: 1.30 AoV VTI: 0.43 AoV Pk Grad: 13.00 Aov Mn Grad: 8.00 [place] Cont.VTI: 1.49 AI Pk Panchito: 4.28 AI Jay: 2.35 LVOT LVOT Pk Panchito: 0.82 LVOT Mn Panchito: 0.57 LVOT VTI: 0.20 LVOT Pk Grad: 3.00 LVOT Mn Grad: 1.00 LVOT Diam: 2.00 LVOT Area: 3.14 Diastolic Function MV Pk E: 0.69 MV Pk A: 0.51 E/A: 1.40 E'Medial: 6.53 E/E' Med: 10.60 E' Laterial: 9.68 E/E' Lat: 7.10 Right Ventricle TAPSE (mm): 14.10 TVS' Panchito: 8.70 Tricuspid Valve TR Pk Panchito: 2.62 TR Pk Grad: 27.00 RA Press: 15.00 RVSP: 42.00 Great Vessels Aorta Sinus of Valsalva: 3.43 2.0-3.5 cm Ao Asc: 4.00 2.1-3.4 cm Ao Arch: 4.00 Updated in Other Vendor System with Status of Final Bebeto Arreola MD electronically signed on 10/07/2025 8:24:47 AM with status of Final
--- OUTSIDE RECORDS SUMMARY | 2025-10-06 18:55 | XMS_ITS | Encounter Summary ---
Author Organization [facility] Address [address] [place] [address] Phone Care Team Providers Care Ginseng Farmer Name Role Phone Gabriella Diggs MD Primary Care Provider [phone] Encounter Details Date Type Department Care Team (Late st Contact Info) Description 01/26/2018 Procedure Pass [address] [address] Social History Tobacco Use Types Packs/Day Years [...] on filedocumented in this encounter Care Teams Ginseng Farmer Relationship Specialty Start Date End Date Gabriella Diggs MD [address] [place] [address] PCP - General Internal Medicine 10/22/17 documented as of this encounter Additional Source Comments The information contained in this document represents components of the legal health record. It is not the complete legal health record.[facility]
--- OUTSIDE RECORDS SUMMARY | 2025-10-06 18:55 | XMS_ITS | Encounter Summary ---
Author Organization [facility] Address [address] [place] [address] Phone Care Team Providers Care Clay Miner Name Role Phone Gabriella Diggs MD Primary Care Provider [phone] Encounter Details Date Type Department Care Team (Late st Contact Info) Description 05/26/2018 Procedure Pass [place] Admitting Dept - Virtual Department [address] [place] [address] Social History Tobacco Use Types Packs/Day Years [...] on filedocumented in this encounter Care Teams Clay Miner Relationship Specialty Start Date End Date Gabriella Diggs MD [address] [place] [address] PCP - General Internal Medicine 10/22/17 documented as of this encounter Additional Source Comments The information contained in this document represents components of the legal health record. It is not the complete legal health record.[facility]
--- OUTSIDE RECORDS SUMMARY | 2025-10-06 18:55 | XMS_ITS | Encounter Summary ---
Author Organization [facility] Address [address] [place] [address] Phone Care Team Providers Care Bacteriology Teacher Name Role Phone Gabriella Diggs MD Primary Care Provider [phone] Encounter Details Date Type Department Care Team (Late st Contact Info) Description 05/28/2018 Procedure Pass [facility], Ct Scan - [address] [address] Social History Tobacco Use Types Packs/Day Years [...] on filedocumented in this encounter Care Teams Bacteriology Teacher Relationship Specialty Start Date End Date Gabriella Diggs MD [address] [place] [address] PCP - General Internal Medicine 10/22/17 documented as of this encounter Additional Source Comments The information contained in this document represents components of the legal health record. It is not the complete legal health record.[facility]
--- OUTSIDE RECORDS SUMMARY | 2025-10-06 18:55 | XMS_ITS | Encounter Summary ---
Author Organization [facility] Address [address] [place] [address] Phone Care Team Providers Care Manager Inside Name Role Phone Gabriella Diggs MD Primary Care Provider [phone] Reason for Referral * Physical Therapy (Routine) - Closed Specialty Diagnoses / Procedures Referred By Contac t Referred To Contact Physical Therapy Diagnoses Mixed incontinence N39.46 (ICD-10-CM) - Mixed incontinence Maicol Masters MD Phone: tel: fax: [email or web address] [facility] [address] [place] [address] Phone: tel: Referral ID Status Reason Start Date Expiration Date Visits Re quested Visits Authorized [id number] Closed 09/29/2019 10/26/2020 99 [phone] Encounter Details Date Type Department Care Team (Latest Contact Info) Description 07/21/2019 Transcribe Orders [facility] [address] [place] [address] Maicol Masters MD [address] [facility] [address] [place] [address] [email or web address] Mixed incontinence (Primary Dx) Social History Tobacco [...] r Schedule Ambulatory referral to [facility] Physical Therapy Outpatient Referral Routine Mixed incontinence Ordered: 07/21/2019 documented as of this encounter Visit Diagnoses Diagnosis Mixed incontinence- Primary Mixed incontinence urge and stress (male)(female) documented in this encounter Care Teams Manager Inside Relationship Specialty Start Date End Date Gabriella Diggs MD [address] [place] [phone] PCP - General Internal Medicine 10/22/17 documented as of this encounter Additional Source Comments The information contained in this document represents components of the legal health record. It is not the complete legal health record.[facility]
--- OUTSIDE RECORDS SUMMARY | 2025-10-06 18:55 | XMS_ITS | Clinical Summary ---
Author Organization [facility] Address [address] [place] [address] Phone Care Team Providers Care Construction Area Manager Name Role Phone Gabriella Diggs MD Primary Care Provider [phone] Allergies Active Allergy Reactions Criticality Noted Date [...] this topic Medical Devices Implanted Type Area Rock Wool Insulator Device Identifier Shelf Expiration Date Model / Serial / Lot Cement Bone 40gr [place] Ghv - [id number] Implanted:Qty: 1 on 05/26/2018 by Geremias King MD at [facility] Right: Knee ENCORE 06/26/2019 [id number] / / [id number] Series A Pat W/Wr Std 37x10 1 Peg Knee [id number] Implanted:Qty: 1 on 05/26/2018 by Geremias King MD at [facility] Right: Patella [employer] 01/12/2023 [id number] / / [id number] Plate Bone 75mm Knee Tibial Tray I Beam Locking Bar [place] Chrome Maxim Ea Knee [id number] Implanted:Qty: 1 on 05/26/2018 by Geremias King MD at [facility] Right: Knee [employer] 01/03/2028 [id number] / / [id number] Implant Knee 67.5mm Femoral Component Interlok Right Ea Knee 02 - [id number] Implanted:Qty: 1 on 05/26/2018 by Geremias King MD at [facility] Right: Knee [employer] 02/10/2028 [id number] / / [id number] Implant Knee [id number] Tibial Bearing Insert Alex Ps Ea Knee [id number] Implanted:Qty: 1 on 05/26/2018 by Geremias King MD at [facility] Right: Knee [employer] 11/19/2022 [id number] / / [id number] Insurance MEDICARE PART A & B [facility] MEDEX SUPPLEMENT MEDICARE PART A & B [employer] CROSS MEDEX SUPPLEMENT MEDICARE PART A & B [employer] CROSS MEDEX SUPPLEMENT MEDICARE PART A & B [employer] MEDEX SUPPLEMENT MEDICARE PART A & B [employer] MEDEX SUPPLEMENT MEDICARE PART A & B [employer] MEDEX SUPPLEMENT MEDICARE PART A & B [employer] MEDEX SUPPLEMENT MEDICARE PART A & B [facility] MEDEX SUPPLEMENT MEDICARE PART A & B BLUE [employer]OSS MEDEX SUPPLEMENT Advance Directives For more information, please contact: [phone] (9AM - 5PM [facility], Friday-Friday) * Full Code (Presumed) (Latest Code Status on File) Date Activated Date Inactivated Comments 05/26/2018 1:05 PM 05/29/2018 3:28 PM * Full Code (Presumed) Date Activated Date Inactivated Comments 05/26/2018 7:36 AM 05/26/2018 1:05 PM Care Teams Construction Area Manager Relationship Specialty Start Date End Date Gabriella Diggs MD [address] [place] [address] PCP - General Internal Medicine 10/22/17 Additional Source Comments The information contained in this document represents components of the legal health record. It is not the complete legal health record.[facility]
== END ==
LOC: HO.CARD 12:39
PROVIDERS: PCP Internal Medicine; Visit Provider Internal Medicine
DX: I51.7 Cardiomegaly (principal); Z98.890 Other specified postprocedural states; Z86.79 Personal history of other diseases of the circulatory system
CPT/HCPCS: 93306; Q9957

== ENCOUNTER → 2025-10-06 12:42 | Outpatient (BNV) | payer MEDICARE, SELFPAY | PROVIDERS: PCP Internal Medicine; Visit Provider Internal Medicine Cardiovascular Disease | DX: I51.7 Cardiomegaly (principal); I35.1 Nonrheumatic aortic (valve) insufficiency; I34.0 Nonrheumatic mitral (valve) insufficiency | CPT/HCPCS: 93306 ==